=== PATIENT | male | born 1985 | race Caucasian/White ===

== ENCOUNTER 2017-12-16 17:19 | Inpatient (IN) | payer MEDICAID, OTHER ==
[2017-12-16 17:30] VITALS: BMI 25.9
[2017-12-16] MEDS ORDERED: Sodium Chloride 0.9% 500 ML IV ONE (17:30)
[2017-12-16 17:55] LABS: MEAN CORPUSCULAR HGB CONC 28.6 g/dL (33.0-37.0); MEAN PLATELET VOLUME 10.8 fL (7.2-11.7); RBC 0.79 Mil/uL (4.40-5.90); RED CELL DISTRIBUTION WIDTH 22.6 % (11.5-14.5); WHITE BLOOD COUNT 3.6 K/uL (4.8-10.8)
[2017-12-16 18:03] LABS: BARBITURATES, UR NEGATIVE (NEGATIVE); BENZODIAZEPINES, UR NEGATIVE (NEGATIVE); OPIATES, UR NEGATIVE (NEGATIVE); PHENCYCLIDINE, UR NEGATIVE (NEGATIVE)
[2017-12-16 18:07] LABS: ACETAMINOPHEN < 10.0 ug/mL (10.0-30.0); SALICYLATE < 1.0 mg/dL 1
[2017-12-16 18:11] LABS: ALB/GLOB RATIO 0.6 (1.0-2.1); ALBUMIN 2.7 g/dL (3.5-5.0); ALT/SGPT 23 U/L (21-72); AST/SGOT 43 U/L (17-59); BLOOD UREA NITROGEN 54 mg/dL (9-20); CALCIUM 8.3 mg/dl (8.6-10.4); GFR AFRICAN-AMERICAN 30; GFR NON-AFRICAN AMERICAN 25
[2017-12-16 18:13] LABS: HEMOGLOBIN 1.8 g/dL (12.0-18.0); MEAN CELL VOLUME 80.3 fL (80.0-94.0); PLATELET COUNT 96 K/uL (130-400)
[2017-12-16] MEDS ORDERED: Calcium Gluconate 4.65 MEQ in Dextrose 5% In Water 100 ML IV ONE (18:15)
[2017-12-16] MEDS ORDERED: (Novolin R) Insulin Human Regular 100 units/ml vial IV STA (18:15)
[2017-12-16] MEDS ORDERED: Dextrose 50% SYRINGE Inj (50 ml) IV STA (18:15)
[2017-12-16 18:22] LABS: SQUAMOUS EPITHIAL 3 /hpf (0-5); URINE BILIRUBIN NEGATIVE (NEGATIVE); URINE BLOOD NEGATIVE (NEGATIVE); URINE CLARITY Hazy (Clear); URINE COLOR Yellow (YELLOW); URINE GLUCOSE (UA) NORMAL (Normal); URINE LEUKOCYTE ESTERASE NEG Leu/uL (Negative); URINE NITRATE NEGATIVE (NEGATIVE); URINE PROTEIN 1+ mg/dL (NEGATIVE); URINE UROBILINOGEN NORMAL mg/dL (0.2-1.0)
--- NOTE | 2017-12-16 18:25 | CT ---
EXAM: CT Head Without Intravenous Contrast CLINICAL HISTORY: 32 years old, male; Signs and symptoms; Altered mental status/memory loss; Confusion or disorientation; Additional info: Change ms, liver dz TECHNIQUE: Axial computed tomography images of the head/brain without intravenous contrast. All CT scans at this facility use one or more dose reduction techniques, viz.: automated exposure control; ma/kV adjustment per patient size (including targeted exams where dose is matched to indication; i.e. head); or iterative reconstruction technique. Coronal and sagittal reformatted images were created and reviewed. COMPARISON: CT - HEAD W/O CONTRAST 2016-04-09 12:33 FINDINGS: Brain: Minimal atrophy. No intracranial hemorrhage. No mass. No definite edema. Ventricles: No hydrocephalus. Bones/joints: No acute fracture. Soft tissues: Unremarkable. Sinuses: Scattered mild mucosal thickening. Mastoid air cells: No mastoid effusion. Orbits: Unremarkable as visualized. Tubes, lines and devices: Nasal tube. IMPRESSION: 1. No definite acute intracranial abnormality. 2. Incidental/non-acute findings are described above.
[2017-12-16] MEDS ORDERED: (Novolin R) Insulin Human Regular 100 units/ml vial ONE (18:29)
[2017-12-16] MEDS ORDERED: Dextrose 50% VIAL Inj (50 ml) IV ONE ×2 (18:29→18:34)
[2017-12-16] MEDS ORDERED: Calcium Gluconate 4.65 mEq/10 ml Inj ONE (18:30)
--- NOTE | 2017-12-16 18:41 | C.PDOC ---
History Of Present Illness 32 y/o male brought to ED by ambulance after he was discovered by his brother for altered mental status. Pt has hx of alcohol abuse since 1998. Pt has previously been hospitalized and admitted in ICU since 2015 in [facility] and [facility] in [place]. Pt has been sober for the last 6 months and was under his 's supervision, however, pt's is currently out of town. Pt states he has been drinking alcohol for the past week. Unknown complaints with lactulose. Denies any physical complaints. Time Seen by Provider: 12/16/17 17:29 Chief Complaint (Nursing): Altered Mental Status History Per: Patient History/Exam Limitations: None Onset/Duration Of Symptoms: Hrs Current Symptoms Are (Timing): Still Present Usual Baseline: Alert Oriented. denies: Non-responsive Exacerbating Factor(s): Other (Alcohol ) Speech Is: Normal Recent travel outside of the [place]: No Past Medical History Reviewed: Historical Data, Nursing Documentation, Vital Signs Vital Signs: Last Vital Signs Temp 97.5 F L 12/16/17 22:00 Pulse 67 12/16/17 22:02 Resp 14 12/16/17 22:02 BP 97/29 L 12/16/17 22:02 Pulse Ox 100 12/16/17 22:02 - Medical History PMH: Anemia, Gastritis Other PMH: hepatic cirrhosis, state III esophageal varicies - [facility] Procedures CONTROL BLEEDING IN GASTROINTESTINAL TRACT, ENDO (09/07/16) INSPECTION OF UPPER INTESTINAL TRACT, ENDO (04/09/16) RESTRICTION OF STOMACH WITH EXTRALUM DEV, PERC ENDO APPROACH (07/20/16) TRANSFUSE NONAUT FROZEN PLASMA IN PERIPH VEIN, PERC (09/07/16) TRANSFUSE NONAUT FROZEN RED CELLS IN PERIPH VEIN, PERC (04/09/16) TRANSFUSE NONAUT RED BLOOD CELLS IN PERIPH ART, PERC (07/20/16) TRANSFUSE NONAUT RED BLOOD CELLS IN PERIPH VEIN, PERC (09/07/16) Family History: States: Unknown Family Hx - Social History Hx Tobacco Use: No Hx Alcohol Use: Yes (hx alcoholism) Hx Substance Use: No - Immunization History Hx Tetanus Toxoid Vaccination: No Hx Influenza Vaccination: No Hx Pneumococcal Vaccination: No Review Of Systems Constitutional: Negative for: Fever Cardiovascular: Negative for: Chest Pain Respiratory: Negative for: Shortness of Breath Gastrointestinal: Negative for: Nausea, Vomiting Skin: Negative for: Rash Neurological: Negative for: Weakness, Numbness Physical Exam - Physical Exam Appears: Well, Non-toxic, No Acute Distress Skin: Pale Head: Atraumatic, Normacephalic Eye(s): bilateral: Other (mild icterus) Oral Mucosa: Moist Throat: Other (blood tinged and stain in mouth) Chest: Symmetrical, No Tenderness Cardiovascular: Rhythm Regular, JVD Respiratory: Normal Breath Sounds, No Rales, No Rhonchi, No Wheezing Gastrointestinal/Abdominal: Soft, Other (mild ascites ) Extremity: No Tenderness, Pedal Edema (4x4) Neurological/Psych: Oriented x3, Normal Speech, Other (GCS approximately 8) ED Course And Treatment - Laboratory Results Result Diagrams: 12/16/17 17:42 12/16/17 17:42 Lab Interpretation: Abnormal (severe anemia, hyperkalemia, tox neg, etoh neg, ASA/tylenol neg.) ECG: Interpreted By Id ECG Rhythm: Sinus Rhythm ECG Interpretation: Normal Rate From EC (mild peaked T^'s anterior leads) O2 Sat by Pulse Oximetry: 100 (RA) Pulse Ox Interpretation: Normal - Radiology CXR: Interpreted by Me CXR Interpretation: Yes: No Acute Disease, Other (++ cardiomegaly, no pna/pnx/ free air under diaphragm) - CT Scan/US CT - Head Other Rad Studies (CT/US): Read By Radiologist, Radiology Report Reviewed CT/US Interpretation: IMPRESSION: 1. No definite acute intracranial abnormality. 2. Incidental/non-acute findings are described above. Progress Note: initial eval 17:20. 1814: d/w ICU, jesenia Wilson to ICU, will eval in ER. 1839: d/w Hospitalist- Dr. Worthington- jesenia to ICU. 1844: d/w GI Fellow, covering Dr. Pelaez, Dr. Latoya Mendoza- recommends agressive recussitation, octreotide, protonix, intubation. Advised against OG tube now. Will consult: . 1899: d/w Dr Gregg- case and treatment reviewed- will intubate in ICU PRN, blood and FFP ordered and pending. 2 large bore 18 ga to b /l external jugular veins placed by this MD with excellent return. Defer central line for bleeding diathysis. Kayexylate and Lactulose per OG tube when placed in ICU. multiple failed attempts @ ABG, persistent bleeding at sites- further efforts abandoned for risk/benefit- do no harm. 2000: pt left ED for ICU Reevaluation Time: 19:13 Reassessment Condition: Improved Critical Care Time - Critical Care Note Total Time (in mins): 90 Documented critical care: time excludes all time spent performing seperately billable procedures. Medical Decision Making Medical Decision Making: Ordered BBK, BG, CT head, EKG, blood work, CXR, and urinalysis. Crisis notified. probable end stage liver dz due to hepatis cirrhosis, h/o stage III esophageal varicies- probable source vs alcoholic gastritis, now with severe anemia hgb 1.8 probable chronic dwindle down otherwise improbably acute. hepatic encephalopathy- ammonia Disposition Doctor Will See Patient In The: Hospital Counseled Patient/Family Regarding: Studies Performed, Diagnosis - Disposition Disposition: HOSPITALIZED Disposition Time: 19:18 Condition: CRITICAL - Clinical Impression Clinical Impression: GI bleed, Esophageal varices, Hypotension, Anemia, Hepatic encephalopathy, Coagulopathy, Altered mental status - Scribe Statement The provider has reviewed the documentation as recorded by the Scribchristophe Owens All medical record entries made by the Scribchristophe were at my direction and personally dictated by me. I have reviewed the chart and agree that the record accurately reflects my personal performance of the history, physical exam, medical decision making, and the department course for this patient. I have also personally directed, reviewed, and agree with the discharge instructions and disposition.
[2017-12-16] MEDS ORDERED: Phytonadione 10 mg/ml Inj (Adult) IV STA (18:52)
[2017-12-16 18:58] LABS: ANISOCYTOSIS MODERATE; EOSINOPHIL 4 % (0-4); LYMPHOCYTE 24 % (20-40); MONOCYTE 11 % (0-10); NEUTROPHIL 61 % (50-75); NUCLEATED RED BLOOD CELL 6 % (0-0); PLATELET ESTIMATE DECREASED (NORMAL); TOTAL CELLS COUNTED 100
[2017-12-16 18:59] LABS: HYPOCHROMIC MARKED; MICROCYTOSIS SLIGHT; OVALOCYTES SLIGHT; POLYCHROMIC SLIGHT; SCHISTOCYTES SLIGHT; TARGET CELLS SLIGHT
[2017-12-16] MEDS ORDERED: Octreotide 1,250 MCG in Dextrose 5% In Water 250 ML SC STA (18:59)
[2017-12-16 19:00] LABS: LARGE PLATELETS PRESENT
[2017-12-16] MEDS ORDERED: Pantoprazole 80 MG in Sodium Chloride 0.9% 100 ML IVPB SCH (19:00)
[2017-12-16] MEDS ORDERED: Pantoprazole 80 MG in Sodium Chloride 0.9% 100 ML IVP SCH (19:00)
[2017-12-16 19:05] LABS: POIKILOCYTOSIS MODERATE
[2017-12-16 19:12] LABS: INR 2.1; PROTHROMBIN TIME 23.7 SECONDS (9.7-12.2)
[2017-12-16] MEDS: Octreotide 1,250 MCG in Dextrose 5% In Water 250 ML SC SCH (19:30)
[2017-12-16] MEDS ORDERED: Phytonadione 10 mg/ml Inj (Adult) ONE (19:33)
[2017-12-16] MEDS: Pantoprazole 80 MG in Sodium Chloride 0.9% 100 ML IVPB SCH (19:39)
[2017-12-16] MEDS ORDERED: Sod Polystyrene Sulf 15 gm/60 ml Susp PR ONE ×2 (20:57→23:45)
[2017-12-16 21:18] LABS: ARTERIAL BLOOD GAS HCO3 17.5 mmol/L (21-28); ARTERIAL BLOOD GAS HEMOGLOBIN < 3.0 g/dL (11.7-17.4); ARTERIAL BLOOD GAS PCO2 21 mm/Hg (35-45); ARTERIAL BLOOD GAS PO2 173 mm/Hg (80-100); ARTERIAL BLOOD GAS TCO2 13.6 mmol/L (22-28)
--- NOTE | 2017-12-16 22:06 | CP.PCM.HP ---
<Ronda Henderson - Last Filed: 12/17/17 05:59> History of Present Illness - History of Present Illness History of Present Illness: Asael Atkinson (brother) # [phone] HPI: Per brother Asael patient was brought from home to the ED because he was not responsive. He states when his father found him this morning he called him and when he arrived his brother just kept rolling his eyes in which he then called 911. He states his brother continuously lies and tells the family he is not drinking and is applying for insurance. He continued to make excuses stating he could not get an appointment with a physician. The brother states the patient told him he had went to the ED recently but the brother kept calling and his brother was never in an ED. Patient was examined at bedside. Patient opens his eyes when you call his name and sternal rub. Patient is non- verbal so ROS could not be obtained. Patient is not verbal history is per brother Asael Atkinson # [phone] PMD: None Past Medical History: Denies Past Surgical History: Denies Family History: Mother when patient was 12 years old due to a stroke ; Father is still living Medications: None Allergies: NKDA Social History: per brother patient has been known to sneak alcohol but no one in his family knows how much beer or other liquor he drinks. He has had a job for about 3 years now and spends most his days at home. He currently is living with his father. He is but his is currently in [place]. Present on Admission - Present on Admission Any Indicators Present on Admission: No Review of Systems - Review of Systems Systems not reviewed;Unavailable: Altered Mental Status Past Patient History - Past Medical History & Family History Past Medical History?: Yes - Past Social History Smoking Status: Never Smoked - CARDIAC Hx Atrial Fibrillation: No - PULMONARY Hx Respiratory Disorders: No - NEUROLOGICAL Hx Neurological Disorder: No - HEENT Hx HEENT Problems: No - RENAL Hx Chronic Kidney Disease: No - ENDOCRINE/METABOLIC Hx Endocrine Disorders: No - HEMATOLOGICAL/ONCOLOGICAL Hx Anemia: Yes - INTEGUMENTARY Hx Dermatological Problems: No - MUSCULOSKELETAL/RHEUMATOLOGICAL Hx Falls: No - GASTROINTESTINAL Hx Gastritis: Yes - GENITOURINARY/GYNECOLOGICAL Hx Genitourinary Disorders: No - PSYCHIATRIC Hx Substance Use: No - SURGICAL HISTORY Hx Surgeries: No - ANESTHESIA Hx Anesthesia: Yes Hx Anesthesia Reactions: No Meds Allergies/Adverse Reactions: Allergies Allergy/AdvReac Type Severity Reaction Status Date / Time No Known Allergies Allergy Verified 09/07/16 10:21 Physical Exam - Constitutional Appears: Toxic - Head Exam Head Exam: NORMAL INSPECTION - Eye Exam Eye Exam: EOMI, Normal appearance Pupil Exam: NORMAL ACCOMODATION - ENT Exam ENT Exam: Mucous Membranes Dry - Respiratory Exam Respiratory Exam: NORMAL BREATHING PATTERN - Cardiovascular Exam Cardiovascular Exam: REGULAR RHYTHM, +S1, +S2 - GI/Abdominal Exam GI & Abdominal Exam: Distended, Normal Bowel Sounds, Soft - Extremities Exam Extremities exam: Positive for: pedal edema (+2 bilateral lower extremity pedal edema ) - Skin Skin Exam: Normal Color, Warm Results - Vital Signs Recent Vital Signs: Last Vital Signs Temp 98 F 12/16/17 21:33 Pulse 82 12/16/17 19:35 Resp 14 12/16/17 20:27 BP 86/18 L 12/16/17 19:35 Pulse Ox 100 12/16/17 21:31 - Labs Result Diagrams: 12/16/17 23:19 12/16/17 23:19 Labs: Laboratory Results - last 24 hr 12/16/17 12/16/17 12/16/17 17:42 17:42 17:42 WBC 3.6 L RBC 0.79 L Hgb 1.8 L* D Hct 6.3 L MCV 80.3 D MCH 23.0 L MCHC 28.6 L RDW 22.6 H Plt Count 96 L D MPV 10.8 Neutrophils % (Manual) 61 Lymphocytes % (Manual) 24 Monocytes % (Manual) 11 H Eosinophils % (Manual) 4 Nucleated RBC % 6 H Platelet Estimate Decreased L Large Platelets Present Polychromasia Slight Hypochromasia (manual) Marked Poikilocytosis (manual Moderate Anisocytosis (manual) Moderate Microcytosis (manual) Slight Macrocytosis (manual) Slight Target Cells Slight Ovalocytes Slight Schistocytes Slight PT INR APTT Puncture Site pCO2 pO2 HCO3 ABG pH ABG Total CO2 ABG Base Excess ABG Hemoglobin Servando Test A-a O2 Difference Respiratory Index Liter Flow FiO2 Sodium 127 L Potassium 6.7 H* D Chloride 102 Carbon Dioxide 14 L Anion Gap 18 BUN 54 H Creatinine 2.9 H Est GFR ( Amer) 30 Est GFR (Non-Af Amer) 25 Random Glucose 81 Calcium 8.3 L Total Bilirubin 3.2 H AST 43 ALT 23 Alkaline Phosphatase 43 Ammonia Total Protein 7.2 Albumin 2.7 L Globulin 4.5 H Albumin/Globulin Ratio 0.6 L Urine Color Yellow Urine Clarity Hazy Urine pH 5.0 Ur Specific [place] 1.012 Urine Protein 1+ H Urine Glucose (UA) Normal Urine Ketones Negative Urine Blood Negative Urine Nitrate Negative Urine Bilirubin Negative Urine Urobilinogen Normal Ur Leukocyte Esterase Neg Urine WBC (Auto) 6 H Urine RBC (Auto) 1 Ur Squamous Epith Cells 3 Salicylates Urine Opiates Screen Urine Methadone Screen Acetaminophen Ur Barbiturates Screen Ur Phencyclidine Scrn Ur Amphetamines Screen U Benzodiazepines Scrn U Oth Cocaine Metabols U Cannabinoids Screen Alcohol, Quantitative < 10 Blood Type Antibody Screen 12/16/17 12/16/17 12/16/17 17:42 17:42 17:42 WBC RBC Hgb Hct MCV MCH MCHC RDW Plt Count MPV Neutrophils % (Manual) Lymphocytes % (Manual) Monocytes % (Manual) Eosinophils % (Manual) Nucleated RBC % Platelet Estimate Large Platelets Polychromasia Hypochromasia (manual) Poikilocytosis (manual Anisocytosis (manual) Microcytosis (manual) Macrocytosis (manual) Target Cells Ovalocytes Schistocytes PT INR APTT Puncture Site pCO2 pO2 HCO3 ABG pH ABG Total CO2 ABG Base Excess ABG Hemoglobin Servando Test A-a O2 Difference Respiratory Index Liter Flow FiO2 Sodium Potassium Chloride Carbon Dioxide Anion Gap BUN Creatinine Est GFR ( Amer) Est GFR (Non-Af Amer) Random Glucose Calcium Total Bilirubin AST ALT Alkaline Phosphatase Ammonia 122 H D Total Protein Albumin Globulin Albumin/Globulin Ratio Urine Color Urine Clarity Urine pH Ur Specific [place] Urine Protein Urine Glucose (UA) Urine Ketones Urine Blood Urine Nitrate Urine Bilirubin Urine Urobilinogen Ur Leukocyte Esterase Urine WBC (Auto) Urine RBC (Auto) Ur Squamous Epith Cells Salicylates < 1.0 Urine Opiates Screen Negative Urine Methadone Screen Negative Acetaminophen < 10.0 L Ur Barbiturates Screen Negative Ur Phencyclidine Scrn Negative Ur Amphetamines Screen Negative U Benzodiazepines Scrn Negative U Oth Cocaine Metabols Negative U Cannabinoids Screen Negative Alcohol, Quantitative Blood Type Antibody Screen 12/16/17 12/16/17 12/16/17 18:11 18:59 20:54 WBC RBC Hgb Hct MCV MCH MCHC RDW Plt Count MPV Neutrophils % (Manual) Lymphocytes % (Manual) Monocytes % (Manual) Eosinophils % (Manual) Nucleated RBC % Platelet Estimate Large Platelets Polychromasia Hypochromasia (manual) Poikilocytosis (manual Anisocytosis (manual) Microcytosis (manual) Macrocytosis (manual) Target Cells Ovalocytes Schistocytes PT 23.7 H INR 2.1 APTT 30 Puncture Site Rba pCO2 21 L pO2 173 H HCO3 17.5 L ABG pH 7.40 ABG Total CO2 13.6 L ABG Base Excess -9.6 L ABG Hemoglobin < 3.0 L Servando Test Na A-a O2 Difference 15.0 Respiratory Index 0.1 Liter Flow 3.0 FiO2 30.0 Sodium Potassium Chloride Carbon Dioxide Anion Gap BUN Creatinine Est GFR ( Amer) Est GFR (Non-Af Amer) Random Glucose Calcium Total Bilirubin AST ALT Alkaline Phosphatase Ammonia Total Protein Albumin Globulin Albumin/Globulin Ratio Urine Color Urine Clarity Urine pH Ur Specific [place] Urine Protein Urine Glucose (UA) Urine Ketones Urine Blood Urine Nitrate Urine Bilirubin Urine Urobilinogen Ur Leukocyte Esterase Urine WBC (Auto) Urine RBC (Auto) Ur Squamous Epith Cells Salicylates Urine Opiates Screen Urine Methadone Screen Acetaminophen Ur Barbiturates Screen Ur Phencyclidine Scrn Ur Amphetamines Screen U Benzodiazepines Scrn U Oth Cocaine Metabols U Cannabinoids Screen Alcohol, Quantitative Blood Type A POSITIVE Antibody Screen Negative Assessment & Plan - Assessment and Plan (Free Text) Assessment: 1.) Change in Mental Status - possibly secondary to acute anemia/encephalopathy - patient admitted to ICU - Head CT: no definite acute intracranial abnormality. Incidental/non-acute findings. - f/u chest xray 2.) Acute Anemia - H/H on admission: 1.8/6.3 - type and screen - 4 units of PRBC - f/u am labs 3.) Thrombocytopenia - Platelets on admission: 96 - 2 units of FFP - f/u am labs 4.) Alcohol abuse - GI consult: Dr. Pelaez - Dextrose/Octreotid 1250 mcg - NS/Pantoprazole 80mg - Lasix 20mg iv q12h <Shawn Alcala - Last Filed: 12/17/17 19:14> Results - Vital Signs Recent Vital Signs: Last Vital Signs Temp 97.6 F 12/17/17 16:00 Pulse 61 12/17/17 18:30 Resp 13 12/17/17 18:30 BP 100/45 L 12/17/17 18:00 Pulse Ox 100 12/17/17 18:00 - Labs Result Diagrams: 12/17/17 16:44 12/17/17 07:18 Labs: Laboratory Results - last 24 hr 12/16/17 12/16/17 12/16/17 18:11 18:59 20:54 WBC RBC Hgb Hct MCV MCH MCHC RDW Plt Count MPV Neut % (Auto) Lymph % (Auto) Bent % (Auto) Eos % (Auto) Baso % (Auto) Neut # (Auto) Lymph # (Auto) Bent # (Auto) Eos # (Auto) Baso # (Auto) Neutrophils % (Manual) Lymphocytes % (Manual) Monocytes % (Manual) Eosinophils % (Manual) Nucleated RBC % Toxic Granulation Platelet Estimate Large Platelets Polychromasia Hypochromasia (manual) Poikilocytosis (manual Anisocytosis (manual) Microcytosis (manual) Macrocytosis (manual) Spherocytes Target Cells Tear Drop Cells Ovalocytes [place] Cells Schistocytes PT 23.7 H INR 2.1 APTT 30 Puncture Site Rba pCO2 21 L pO2 173 H HCO3 17.5 L ABG pH 7.40 ABG Total CO2 13.6 L ABG Base Excess -9.6 L ABG Hemoglobin < 3.0 L Servando Test Na A-a O2 Difference 15.0 Respiratory Index 0.1 Liter Flow 3.0 FiO2 30.0 Sodium Potassium Chloride Carbon Dioxide Anion Gap BUN Creatinine Est GFR ( Amer) Est GFR (Non-Af Amer) Random Glucose Calcium Phosphorus Magnesium Total Bilirubin AST ALT Alkaline Phosphatase Total Protein Albumin Globulin Albumin/Globulin Ratio Ur Random Creatinine U Random Total Protein Urine Microalbumin Blood Type A POSITIVE Antibody Screen Negative 12/16/17 12/16/17 12/17/17 23:19 23:19 07:18 WBC 3.8 L 4.5 L RBC 1.36 L 1.58 L Hgb 3.6 L* 4.4 L* Hct 11.4 L 13.2 L MCV 83.7 D 83.6 MCH 26.8 L 27.6 MCHC 32.0 L 33.1 RDW 18.3 H 16.0 H Plt Count 26 L* D 49 L D MPV 11.1 10.4 Neut % (Auto) 77.5 H Lymph % (Auto) 6.2 L Bent % (Auto) 12.0 H Eos % (Auto) 3.5 Baso % (Auto) 0.8 Neut # (Auto) 3.5 Lymph # (Auto) 0.3 L Bent # (Auto) 0.5 Eos # (Auto) 0.2 Baso # (Auto) 0.0 Neutrophils % (Manual) 79 H Lymphocytes % (Manual) 7 L Monocytes % (Manual) 12 H Eosinophils % (Manual) 2 Nucleated RBC % 1 H Toxic Granulation Present Platelet Estimate Markedly decreased L Large Platelets Present Polychromasia Slight Hypochromasia (manual) Slight Poikilocytosis (manual Slight Anisocytosis (manual) Slight Microcytosis (manual) Slight Macrocytosis (manual) Slight Spherocytes Slight Target Cells Slight Tear Drop Cells Slight Ovalocytes Slight [place] Cells Slight Schistocytes Slight PT INR APTT Puncture Site pCO2 pO2 HCO3 ABG pH ABG Total CO2 ABG Base Excess ABG Hemoglobin Servando Test A-a O2 Difference Respiratory Index Liter Flow FiO2 Sodium 127 L Potassium 6.0 H Chloride 106 Carbon Dioxide 11 L* D Anion Gap 15 BUN 52 H Creatinine 2.8 H Est GFR ( Amer) 32 Est GFR (Non-Af Amer) 26 Random Glucose 80 Calcium 8.1 L Phosphorus Magnesium Total Bilirubin AST ALT Alkaline Phosphatase Total Protein Albumin Globulin Albumin/Globulin Ratio Ur Random Creatinine U Random Total Protein Urine Microalbumin Blood Type Antibody Screen 12/17/17 12/17/17 12/17/17 07:18 16:44 16:44 WBC RBC Hgb Hct MCV MCH MCHC RDW Plt Count MPV Neut % (Auto) Lymph % (Auto) Bent % (Auto) Eos % (Auto) Baso % (Auto) Neut # (Auto) Lymph # (Auto) Bent # (Auto) Eos # (Auto) Baso # (Auto) Neutrophils % (Manual) Lymphocytes % (Manual) Monocytes % (Manual) Eosinophils % (Manual) Nucleated RBC % Toxic Granulation Platelet Estimate Large Platelets Polychromasia Hypochromasia (manual) Poikilocytosis (manual Anisocytosis (manual) Microcytosis (manual) Macrocytosis (manual) Spherocytes Target Cells Tear Drop Cells Ovalocytes [place] Cells Schistocytes PT INR APTT Puncture Site pCO2 pO2 HCO3 ABG pH ABG Total CO2 ABG Base Excess ABG Hemoglobin Servando Test A-a O2 Difference Respiratory Index Liter Flow FiO2 Sodium 134 Potassium 5.0 Chloride 99 Carbon Dioxide 14 L Anion Gap 26 H BUN 51 H Creatinine 3.0 H Est GFR ( Amer) 29 Est GFR (Non-Af Amer) 24 Random Glucose 133 H Calcium 7.2 L Phosphorus 6.4 H Magnesium 2.0 Total Bilirubin 7.0 H AST 35 ALT 25 Alkaline Phosphatase 40 Total Protein 6.9 Albumin 2.8 L Globulin 4.1 H Albumin/Globulin Ratio 0.7 L Ur Random Creatinine 103.1 U Random Total Protein Urine Microalbumin 58.9 H Blood Type Antibody Screen 12/17/17 12/17/17 16:44 16:56 WBC 4.3 L RBC 1.93 L Hgb 5.4 L* Hct 16.1 L MCV 83.3 MCH 28.0 MCHC 33.6 RDW 16.3 H Plt Count 53 L MPV 10.4 Neut % (Auto) Lymph % (Auto) Bent % (Auto) Eos % (Auto) Baso % (Auto) Neut # (Auto) Lymph # (Auto) Bent # (Auto) Eos # (Auto) Baso # (Auto) Neutrophils % (Manual) Lymphocytes % (Manual) Monocytes % (Manual) Eosinophils % (Manual) Nucleated RBC % Toxic Granulation Platelet Estimate Large Platelets Polychromasia Hypochromasia (manual) Poikilocytosis (manual Anisocytosis (manual) Microcytosis (manual) Macrocytosis (manual) Spherocytes Target Cells Tear Drop Cells Ovalocytes [place] Cells Schistocytes PT INR APTT Puncture Site pCO2 pO2 HCO3 ABG pH ABG Total CO2 ABG Base Excess ABG Hemoglobin Servando Test A-a O2 Difference Respiratory Index Liter Flow FiO2 Sodium Potassium Chloride Carbon Dioxide Anion Gap BUN Creatinine Est GFR ( Amer) Est GFR (Non-Af Amer) Random Glucose Calcium Phosphorus Magnesium Total Bilirubin AST ALT Alkaline Phosphatase Total Protein Albumin Globulin Albumin/Globulin Ratio Ur Random Creatinine U Random Total Protein 23.0 H Urine Microalbumin Blood Type Antibody Screen Assessment & Plan - Date & Time Date: 12/17/17 (I have seen and examined the patient. I agree with the findings and plan of care as documented by Dr. Henderson. Patient with severe anemia secondary due to alcohol abuse and esophageal varices. Consult to GI. Octreotide, PPI, transfuse multiple units of PRBCs and FFP. Admit to ICU. Also with change in mental status. May be secondary to hepatic encephalopathy. Monitor with neurochecks. Monitor for acute changes.) Time: 19:11 Attending/Attestation - Attestation I have personally seen and examined this patient.: Yes I have fully participated in the care of the patient.: Yes I have reviewed all pertinent clinical information: Yes
[2017-12-16 23:41] LABS: MEAN CELL VOLUME 83.7 fL (80.0-94.0); MEAN CORPUSCULAR HEMOGLOBIN 26.8 pg (27.0-31.0); MEAN PLATELET VOLUME 11.1 fL (7.2-11.7); RBC 1.36 Mil/uL (4.40-5.90); RED CELL DISTRIBUTION WIDTH 18.3 % (11.5-14.5); WHITE BLOOD COUNT 3.8 K/uL (4.8-10.8)
[2017-12-16 23:44] LABS: HEMOGLOBIN 3.6 g/dL (12.0-18.0)
[2017-12-16 23:49] LABS: CALCIUM 8.1 mg/dl (8.6-10.4)
[2017-12-17] MEDS: Pantoprazole 80 MG in Sodium Chloride 0.9% 100 ML IVPB SCH ×2 (05:07→15:18)
[2017-12-17 07:32] LABS: BASO % 0.8 % (0.0-2.0); EOS # 0.2 K/uL (0.0-0.7); EOS % 3.5 % (0.0-4.0); LYMPH # 0.3 K/uL (1.0-4.3); LYMPH % 6.2 % (20.0-40.0); MEAN CELL VOLUME 83.6 fL (80.0-94.0); MEAN CORPUSCULAR HEMOGLOBIN 27.6 pg (27.0-31.0); MEAN CORPUSCULAR HGB CONC 33.1 g/dL (33.0-37.0); MEAN PLATELET VOLUME 10.4 fL (7.2-11.7); MONO # 0.5 K/uL (0.0-0.8); NEUT # 3.5 K/uL (1.8-7.0); NEUT % 77.5 % (50.0-75.0); NRBC % 4.3 % (0.0-2.0); RBC 1.58 Mil/uL (4.40-5.90); WHITE BLOOD COUNT 4.5 K/uL (4.8-10.8)
[2017-12-17 07:37] LABS: HEMOGLOBIN 4.4 g/dL (12.0-18.0); PLATELET COUNT 49 K/uL (130-400)
[2017-12-17 07:49] LABS: ALB/GLOB RATIO 0.7 (1.0-2.1); ALBUMIN 2.8 g/dL (3.5-5.0); CALCIUM 7.2 mg/dl (8.6-10.4)
--- NOTE | 2017-12-17 08:16 | CP.PCM.CON ---
<Mirtha Mendoza - Last Filed: 12/17/17 13:12> History of Present Illness - History of Present Illness History of Present Illness: PGY4 GI Fellow Consult Note Nakul Atkinson is a 31yo male with PMHx significant for decompensated alcoholic cirrhosis with grade 3 esophageal varices s/p banding in July 2016 and August 2016 who presented to the ED with altered mental status. Pt was found obtunded by his brother who was visiting. He saw not able to arouse the pt and immediately called 911. On arrival, his HGB was noted to be 1.8, down from 9.3 back in July of 2016. He was admitted to the ICU, given unit of PRBCs. Most information was obtained from the brother overnight, who was bedside. As per the brother, pt was very secretive of his currently medical condition from his family. He has not follow-up with any medical practicinor in the past 1 year after discharge from [facility]. He continues to drink, but family is unaware of the amount. His brother does not know if he is taking any meds. He is unaware if the pt has been complaining of melena, hematemesis or coffee-ground emesis. In the ER, there were no reports of overt GI bleed and no significant events overnight. He received 4 unit of PRBC and 1 unit FFP overnight, hgb was ~ 4.4 in the AM. He also received lactulose and k-exylate rectally. He had 2 BM overnight. Pt was more alert, but still confused in the AM. He was oriented to person, place, but not time. He notes that he was had seen a GI physcian as an outpt upon his discharge from [facility] in 2015. He was told to continue 4 medication, which he does not recall the name of, but he did not follow-up after 1 visit. He notes that he also came to the [facility] at least twice. He notes that he has not been on any medication or seen a health care provider in >1 year. he was vague and dismissive about his alcohol use. He denies any BRBPR, melena, hematemsis, or coffee-ground emesis PMHx: Decompensated alcoholic cirrhosis, esophageal varices, alcohol dependence/ abuse in remission sober since 10/27 per pt PSHx: Denies FHx: Father - prostate cancer Social: Former alcoholic, sober since 10/2015; denies tobacco or illicit drug use Endo: Prior EGd in March and July of 2016 with banding performed in July following ruptured varices (6 bands), EGD 08/2016 3 bands grade 3 varices with GOV1 ROS: 12 point ROS conducted neg other than above. Past Patient History - Past Medical History & Family History Past Medical History?: Yes - Past Social History Smoking Status: Never Smoked - CARDIAC Hx Atrial Fibrillation: No - PULMONARY Hx Respiratory Disorders: No - NEUROLOGICAL Hx Neurological Disorder: No - HEENT Hx HEENT Problems: No - RENAL Hx Chronic Kidney Disease: No - ENDOCRINE/METABOLIC Hx Endocrine Disorders: No - HEMATOLOGICAL/ONCOLOGICAL Hx Anemia: Yes - INTEGUMENTARY Hx Dermatological Problems: No - MUSCULOSKELETAL/RHEUMATOLOGICAL Hx Falls: No - GASTROINTESTINAL Hx Gastritis: Yes - GENITOURINARY/GYNECOLOGICAL Hx Genitourinary Disorders: No - PSYCHIATRIC Hx Substance Use: No - SURGICAL HISTORY Hx Surgeries: No - ANESTHESIA Hx Anesthesia: Yes Hx Anesthesia Reactions: No Meds Allergies/Adverse Reactions: Allergies Allergy/AdvReac Type Severity Reaction Status Date / Time No Known Allergies Allergy Verified 09/07/16 10:21 - Medications Medications: Current Medications Furosemide (Lasix) 20 mg IVP Q12 RUPINDER Last Admin: 12/16/17 23:43 Dose: 20 mg Octreotide Acetate 1,250 mcg/ (Dextrose) 252.5 mls @ 5.05 mls/hr SC .Q24H RUPINDER PRN Reason: 25 MCG/HR Last Admin: 12/16/17 19:30 Dose: 5.05 mls/hr Pantoprazole Sodium 80 mg/ (Sodium Chloride) 100 mls @ 10 mls/hr IVPB .Q10H RUPINDER PRN Reason: 8 MG/HR Last Admin: 12/17/17 05:07 Dose: 10 mls/hr Physical Exam - Constitutional Appears: Well, No Acute Distress - Head Exam Head Exam: ATRAUMATIC, NORMOCEPHALIC - Eye Exam Eye Exam: Scleral icterus - ENT Exam ENT Exam: Mucous Membranes Moist, Normal Exam - Neck Exam Neck exam: Positive for: Normal Inspection - Respiratory Exam Respiratory Exam: Clear to Auscultation Bilateral, NORMAL BREATHING PATTERN. absent: Rales, Rhonchi, Wheezes, Respiratory Distress - Cardiovascular Exam Cardiovascular Exam: REGULAR RHYTHM, +S1, +S2 - GI/Abdominal Exam GI & Abdominal Exam: Normal Bowel Sounds, Soft. absent: Distended, Guarding, Rebound, Rigid, Tenderness - Rectal Exam Rectal Exam: NORMAL INSPECTION. absent: Black Stool, Bloody Stool - Extremities Exam Extremities exam: Positive for: pedal edema - Neurological Exam Neurological exam: Alert, Altered - Psychiatric Exam Psychiatric exam: Normal Affect, Normal Mood - Skin Skin Exam: Dry, Intact, Warm Additional comments: slight juandiced Results - Vital Signs Recent Vital Signs: Last Vital Signs Temp 97.6 F 12/17/17 07:00 Pulse 67 12/17/17 07:40 Resp 12 12/17/17 07:40 BP 101/51 L 12/17/17 07:32 Pulse Ox 100 12/17/17 07:40 - Labs Result Diagrams: 12/17/17 07:18 12/17/17 07:18 Labs: Laboratory Results - last 24 hr 12/16/17 12/16/17 12/16/17 17:42 17:42 17:42 WBC 3.6 L RBC 0.79 L Hgb 1.8 L* D Hct 6.3 L MCV 80.3 D MCH 23.0 L MCHC 28.6 L RDW 22.6 H Plt Count 96 L D MPV 10.8 Neut % (Auto) Lymph % (Auto) [place] % (Auto) Eos % (Auto) Baso % (Auto) Neut # (Auto) Lymph # (Auto) [place] # (Auto) Eos # (Auto) Baso # (Auto) Neutrophils % (Manual) 61 Lymphocytes % (Manual) 24 Monocytes % (Manual) 11 H Eosinophils % (Manual) 4 Nucleated RBC % 6 H Platelet Estimate Decreased L Large Platelets Present Polychromasia Slight Hypochromasia (manual) Marked Poikilocytosis (manual Moderate Anisocytosis (manual) Moderate Microcytosis (manual) Slight Macrocytosis (manual) Slight Target Cells Slight Ovalocytes Slight Schistocytes Slight PT INR APTT Puncture Site pCO2 pO2 HCO3 ABG pH ABG Total CO2 ABG Base Excess ABG Hemoglobin Servando Test A-a O2 Difference Respiratory Index Liter Flow FiO2 Sodium 127 L Potassium 6.7 H* D Chloride 102 Carbon Dioxide 14 L Anion Gap 18 BUN 54 H Creatinine 2.9 H Est GFR ( Amer) 30 Est GFR (Non-Af Amer) 25 Random Glucose 81 Calcium 8.3 L Phosphorus Magnesium Total Bilirubin 3.2 H AST 43 ALT 23 Alkaline Phosphatase 43 Ammonia Total Protein 7.2 Albumin 2.7 L Globulin 4.5 H Albumin/Globulin Ratio 0.6 L Urine Color Yellow Urine Clarity Hazy Urine pH 5.0 Ur Specific [place] 1.012 Urine Protein 1+ H Urine Glucose (UA) Normal Urine Ketones Negative Urine Blood Negative Urine Nitrate Negative Urine Bilirubin Negative Urine Urobilinogen Normal Ur Leukocyte Esterase Neg Urine WBC (Auto) 6 H Urine RBC (Auto) 1 Ur Squamous Epith Cells 3 Salicylates Urine Opiates Screen Urine Methadone Screen Acetaminophen Ur Barbiturates Screen Ur Phencyclidine Scrn Ur Amphetamines Screen U Benzodiazepines Scrn U Oth Cocaine Metabols U Cannabinoids Screen Alcohol, Quantitative < 10 Blood Type Antibody Screen 12/16/17 12/16/17 12/16/17 17:42 17:42 17:42 WBC RBC Hgb Hct MCV MCH MCHC RDW Plt Count MPV Neut % (Auto) Lymph % (Auto) [place] % (Auto) Eos % (Auto) Baso % (Auto) Neut # (Auto) Lymph # (Auto) [place] # (Auto) Eos # (Auto) Baso # (Auto) Neutrophils % (Manual) Lymphocytes % (Manual) Monocytes % (Manual) Eosinophils % (Manual) Nucleated RBC % Platelet Estimate Large Platelets Polychromasia Hypochromasia (manual) Poikilocytosis (manual Anisocytosis (manual) Microcytosis (manual) Macrocytosis (manual) Target Cells Ovalocytes Schistocytes PT INR APTT Puncture Site pCO2 pO2 HCO3 ABG pH ABG Total CO2 ABG Base Excess ABG Hemoglobin Servando Test A-a O2 Difference Respiratory Index Liter Flow FiO2 Sodium Potassium Chloride Carbon Dioxide Anion Gap BUN Creatinine Est GFR ( Amer) Est GFR (Non-Af Amer) Random Glucose Calcium Phosphorus Magnesium Total Bilirubin AST ALT Alkaline Phosphatase Ammonia 122 H D Total Protein Albumin Globulin Albumin/Globulin Ratio Urine Color Urine Clarity Urine pH Ur Specific [place] Urine Protein Urine Glucose (UA) Urine Ketones Urine Blood Urine Nitrate Urine Bilirubin Urine Urobilinogen Ur Leukocyte Esterase Urine WBC (Auto) Urine RBC (Auto) Ur Squamous Epith Cells Salicylates < 1.0 Urine Opiates Screen Negative Urine Methadone Screen Negative Acetaminophen < 10.0 L Ur Barbiturates Screen Negative Ur Phencyclidine Scrn Negative Ur Amphetamines Screen Negative U Benzodiazepines Scrn Negative U Oth Cocaine Metabols Negative U Cannabinoids Screen Negative Alcohol, Quantitative Blood Type Antibody Screen 12/16/17 12/16/17 12/16/17 18:11 18:59 20:54 WBC RBC Hgb Hct MCV MCH MCHC RDW Plt Count MPV Neut % (Auto) Lymph % (Auto) [place] % (Auto) Eos % (Auto) Baso % (Auto) Neut # (Auto) Lymph # (Auto) [place] # (Auto) Eos # (Auto) Baso # (Auto) Neutrophils % (Manual) Lymphocytes % (Manual) Monocytes % (Manual) Eosinophils % (Manual) Nucleated RBC % Platelet Estimate Large Platelets Polychromasia Hypochromasia (manual) Poikilocytosis (manual Anisocytosis (manual) Microcytosis (manual) Macrocytosis (manual) Target Cells Ovalocytes Schistocytes PT 23.7 H INR 2.1 APTT 30 Puncture Site Rba pCO2 21 L pO2 173 H HCO3 17.5 L ABG pH 7.40 ABG Total CO2 13.6 L ABG Base Excess -9.6 L ABG Hemoglobin < 3.0 L Servando Test Na A-a O2 Difference 15.0 Respiratory Index 0.1 Liter Flow 3.0 FiO2 30.0 Sodium Potassium Chloride Carbon Dioxide Anion Gap BUN Creatinine Est GFR ( Amer) Est GFR (Non-Af Amer) Random Glucose Calcium Phosphorus Magnesium Total Bilirubin AST ALT Alkaline Phosphatase Ammonia Total Protein Albumin Globulin Albumin/Globulin Ratio Urine Color Urine Clarity Urine pH Ur Specific [place] Urine Protein Urine Glucose (UA) Urine Ketones Urine Blood Urine Nitrate Urine Bilirubin Urine Urobilinogen Ur Leukocyte Esterase Urine WBC (Auto) Urine RBC (Auto) Ur Squamous Epith Cells Salicylates Urine Opiates Screen Urine Methadone Screen Acetaminophen Ur Barbiturates Screen Ur Phencyclidine Scrn Ur Amphetamines Screen U Benzodiazepines Scrn U Oth Cocaine Metabols U Cannabinoids Screen Alcohol, Quantitative Blood Type A POSITIVE Antibody Screen Negative 12/16/17 12/16/17 12/17/17 23:19 23:19 07:18 WBC 3.8 L 4.5 L RBC 1.36 L 1.58 L Hgb 3.6 L* 4.4 L* Hct 11.4 L 13.2 L MCV 83.7 D 83.6 MCH 26.8 L 27.6 MCHC 32.0 L 33.1 RDW 18.3 H 16.0 H Plt Count 26 L* D 49 L D MPV 11.1 10.4 Neut % (Auto) 77.5 H Lymph % (Auto) 6.2 L [place] % (Auto) 12.0 H Eos % (Auto) 3.5 Baso % (Auto) 0.8 Neut # (Auto) 3.5 Lymph # (Auto) 0.3 L [place] # (Auto) 0.5 Eos # (Auto) 0.2 Baso # (Auto) 0.0 Neutrophils % (Manual) Lymphocytes % (Manual) Monocytes % (Manual) Eosinophils % (Manual) Nucleated RBC % Platelet Estimate Large Platelets Polychromasia Hypochromasia (manual) Poikilocytosis (manual Anisocytosis (manual) Microcytosis (manual) Macrocytosis (manual) Target Cells Ovalocytes Schistocytes PT INR APTT Puncture Site pCO2 pO2 HCO3 ABG pH ABG Total CO2 ABG Base Excess ABG Hemoglobin Servando Test A-a O2 Difference Respiratory Index Liter Flow FiO2 Sodium 127 L Potassium 6.0 H Chloride 106 Carbon Dioxide 11 L* D Anion Gap 15 BUN 52 H Creatinine 2.8 H Est GFR ( Amer) 32 Est GFR (Non-Af Amer) 26 Random Glucose 80 Calcium 8.1 L Phosphorus Magnesium Total Bilirubin AST ALT Alkaline Phosphatase Ammonia Total Protein Albumin Globulin Albumin/Globulin Ratio Urine Color Urine Clarity Urine pH Ur Specific [place] Urine Protein Urine Glucose (UA) Urine Ketones Urine Blood Urine Nitrate Urine Bilirubin Urine Urobilinogen Ur Leukocyte Esterase Urine WBC (Auto) Urine RBC (Auto) Ur Squamous Epith Cells Salicylates Urine Opiates Screen Urine Methadone Screen Acetaminophen Ur Barbiturates Screen Ur Phencyclidine Scrn Ur Amphetamines Screen U Benzodiazepines Scrn U Oth Cocaine Metabols U Cannabinoids Screen Alcohol, Quantitative Blood Type Antibody Screen 12/17/17 07:18 WBC RBC Hgb Hct MCV MCH MCHC RDW Plt Count MPV Neut % (Auto) Lymph % (Auto) [place] % (Auto) Eos % (Auto) Baso % (Auto) Neut # (Auto) Lymph # (Auto) [place] # (Auto) Eos # (Auto) Baso # (Auto) Neutrophils % (Manual) Lymphocytes % (Manual) Monocytes % (Manual) Eosinophils % (Manual) Nucleated RBC % Platelet Estimate Large Platelets Polychromasia Hypochromasia (manual) Poikilocytosis (manual Anisocytosis (manual) Microcytosis (manual) Macrocytosis (manual) Target Cells Ovalocytes Schistocytes PT INR APTT Puncture Site pCO2 pO2 HCO3 ABG pH ABG Total CO2 ABG Base Excess ABG Hemoglobin Servando Test A-a O2 Difference Respiratory Index Liter Flow FiO2 Sodium 134 Potassium 5.0 Chloride 99 Carbon Dioxide 14 L Anion Gap 26 H BUN 51 H Creatinine 3.0 H Est GFR ( Amer) 29 Est GFR (Non-Af Amer) 24 Random Glucose 133 H Calcium 7.2 L Phosphorus 6.4 H Magnesium 2.0 Total Bilirubin 7.0 H AST 35 ALT 25 Alkaline Phosphatase 40 Ammonia Total Protein 6.9 Albumin 2.8 L Globulin 4.1 H Albumin/Globulin Ratio 0.7 L Urine Color Urine Clarity Urine pH Ur Specific [place] Urine Protein Urine Glucose (UA) Urine Ketones Urine Blood Urine Nitrate Urine Bilirubin Urine Urobilinogen Ur Leukocyte Esterase Urine WBC (Auto) Urine RBC (Auto) Ur Squamous Epith Cells Salicylates Urine Opiates Screen Urine Methadone Screen Acetaminophen Ur Barbiturates Screen Ur Phencyclidine Scrn Ur Amphetamines Screen U Benzodiazepines Scrn U Oth Cocaine Metabols U Cannabinoids Screen Alcohol, Quantitative Blood Type Antibody Screen Assessment & Plan - Assessment and Plan (Free Text) Assessment: Patient is a 31yo male with PMHx significant for decompensated alcoholic cirrhosis with esophageal varices s/p banding in July 2016 who presents with altered mental status and severe normocytic anemia -Normocytic anemia; r/o oozing from variceal source; MELD 33, DF22 -Hepatic encephalopathy -Decompensated alcholic cirrhosis -Esophageal varices -Hyperbilirubinemia -Coagulopathy of cirrhosis -Hyperkalemia -Renal Failure, prerenal vs hepatorenal Plan: -Two large bore IVs -IVF as ordered -current hgb 4.4 after 4 units prbc, can give an additional 1-2 units of PRBC -goal hgb ~ 7 -Do not place NGT -Protonix gtt -Octreotide gtt -s/p transfusion of 1 unit FFP -Ceftriaxone 1g IV QD for SBP ppx -Zofran 4mg IV Q8H - standing order -start clears today -Check abdominal U/S -Check AFP -Monitor INR, CMP -recommend renal consult, will need to volume expand to see if renal function improves, if no improvement in 48 hrs consider starting HRS regiment -EGD tomorrow, NPO after midnight D/w Dr. Tamez <Dashawn VELASQUEZ,Lyn - Last Filed: 12/17/17 15:35> Meds - Medications Medications: Current Medications Furosemide (Lasix) 20 mg IVP Q12 [facility] Last Admin: 12/17/17 15:17 Dose: 20 mg Octreotide Acetate 1,250 mcg/ (Dextrose) 252.5 mls @ 5.05 mls/hr SC .Q24H RUPINDER PRN Reason: 25 MCG/HR Last Admin: 12/16/17 19:30 Dose: 5.05 mls/hr Pantoprazole Sodium 80 mg/ (Sodium Chloride) 100 mls @ 10 mls/hr IVPB .Q10H RUPINDER PRN Reason: 8 MG/HR Last Admin: 12/17/17 15:18 Dose: 10 mls/hr Ceftriaxone Sodium (Rocephin Iv 1 Gm Duplex) 50 mls @ 100 mls/hr IVPB DAILY [facility] Last Admin: 12/17/17 14:00 Dose: 100 mls/hr Lactulose (Enulose) 20 gm PO BID [facility] Last Admin: 12/17/17 11:00 Dose: Not Given Results - Vital Signs Recent Vital Signs: Last Vital Signs Temp 98 F 12/17/17 13:00 Pulse 66 12/17/17 13:00 Resp 18 12/17/17 13:00 BP 110/60 12/17/17 15:17 Pulse Ox 100 12/17/17 13:00 - Labs Result Diagrams: 12/17/17 07:18 12/17/17 07:18 Labs: Laboratory Results - last 24 hr 12/16/17 12/16/17 12/16/17 17:42 17:42 17:42 WBC 3.6 L RBC 0.79 L Hgb 1.8 L* D Hct 6.3 L MCV 80.3 D MCH 23.0 L MCHC 28.6 L RDW 22.6 H Plt Count 96 L D MPV 10.8 Neut % (Auto) Lymph % (Auto) [place] % (Auto) Eos % (Auto) Baso % (Auto) Neut # (Auto) Lymph # (Auto) [place] # (Auto) Eos # (Auto) Baso # (Auto) Neutrophils % (Manual) 61 Lymphocytes % (Manual) 24 Monocytes % (Manual) 11 H Eosinophils % (Manual) 4 Nucleated RBC % 6 H Toxic Granulation Platelet Estimate Decreased L Large Platelets Present Polychromasia Slight Hypochromasia (manual) Marked Poikilocytosis (manual Moderate Anisocytosis (manual) Moderate Microcytosis (manual) Slight Macrocytosis (manual) Slight Spherocytes Target Cells Slight Tear Drop Cells Ovalocytes Slight [place] Cells Schistocytes Slight PT INR APTT Puncture Site pCO2 pO2 HCO3 ABG pH ABG Total CO2 ABG Base Excess ABG Hemoglobin Servando Test A-a O2 Difference Respiratory Index Liter Flow FiO2 Sodium 127 L Potassium 6.7 H* D Chloride 102 Carbon Dioxide 14 L Anion Gap 18 BUN 54 H Creatinine 2.9 H Est GFR ( Amer) 30 Est GFR (Non-Af Amer) 25 Random Glucose 81 Calcium 8.3 L Phosphorus Magnesium Total Bilirubin 3.2 H AST 43 ALT 23 Alkaline Phosphatase 43 Ammonia Total Protein 7.2 Albumin 2.7 L Globulin 4.5 H Albumin/Globulin Ratio 0.6 L Urine Color Yellow Urine Clarity Hazy Urine pH 5.0 Ur Specific [place] 1.012 Urine Protein 1+ H Urine Glucose (UA) Normal Urine Ketones Negative Urine Blood Negative Urine Nitrate Negative Urine Bilirubin Negative Urine Urobilinogen Normal Ur Leukocyte Esterase Neg Urine WBC (Auto) 6 H Urine RBC (Auto) 1 Ur Squamous Epith Cells 3 Salicylates Urine Opiates Screen Urine Methadone Screen Acetaminophen Ur Barbiturates Screen Ur Phencyclidine Scrn Ur Amphetamines Screen U Benzodiazepines Scrn U Oth Cocaine Metabols U Cannabinoids Screen Alcohol, Quantitative < 10 Blood Type Antibody Screen 12/16/17 12/16/17 12/16/17 17:42 17:42 17:42 WBC RBC Hgb Hct MCV MCH MCHC RDW Plt Count MPV Neut % (Auto) Lymph % (Auto) [place] % (Auto) Eos % (Auto) Baso % (Auto) Neut # (Auto) Lymph # (Auto) [place] # (Auto) Eos # (Auto) Baso # (Auto) Neutrophils % (Manual) Lymphocytes % (Manual) Monocytes % (Manual) Eosinophils % (Manual) Nucleated RBC % Toxic Granulation Platelet Estimate Large Platelets Polychromasia Hypochromasia (manual) Poikilocytosis (manual Anisocytosis (manual) Microcytosis (manual) Macrocytosis (manual) Spherocytes Target Cells Tear Drop Cells Ovalocytes [place] Cells Schistocytes PT INR APTT Puncture Site pCO2 pO2 HCO3 ABG pH ABG Total CO2 ABG Base Excess ABG Hemoglobin Servando Test A-a O2 Difference Respiratory Index Liter Flow FiO2 Sodium Potassium Chloride Carbon Dioxide Anion Gap BUN Creatinine Est GFR ( Amer) Est GFR (Non-Af Amer) Random Glucose Calcium Phosphorus Magnesium Total Bilirubin AST ALT Alkaline Phosphatase Ammonia 122 H D Total Protein Albumin Globulin Albumin/Globulin Ratio Urine Color Urine Clarity Urine pH Ur Specific [place] Urine Protein Urine Glucose (UA) Urine Ketones Urine Blood Urine Nitrate Urine Bilirubin Urine Urobilinogen Ur Leukocyte Esterase Urine WBC (Auto) Urine RBC (Auto) Ur Squamous Epith Cells Salicylates < 1.0 Urine Opiates Screen Negative Urine Methadone Screen Negative Acetaminophen < 10.0 L Ur Barbiturates Screen Negative Ur Phencyclidine Scrn Negative Ur Amphetamines Screen Negative U Benzodiazepines Scrn Negative U Oth Cocaine Metabols Negative U Cannabinoids Screen Negative Alcohol, Quantitative Blood Type Antibody Screen 12/16/17 12/16/17 12/16/17 18:11 18:59 20:54 WBC RBC Hgb Hct MCV MCH MCHC RDW Plt Count MPV Neut % (Auto) Lymph % (Auto) [place] % (Auto) Eos % (Auto) Baso % (Auto) Neut # (Auto) Lymph # (Auto) [place] # (Auto) Eos # (Auto) Baso # (Auto) Neutrophils % (Manual) Lymphocytes % (Manual) Monocytes % (Manual) Eosinophils % (Manual) Nucleated RBC % Toxic Granulation Platelet Estimate Large Platelets Polychromasia Hypochromasia (manual) Poikilocytosis (manual Anisocytosis (manual) Microcytosis (manual) Macrocytosis (manual) Spherocytes Target Cells Tear Drop Cells Ovalocytes [place] Cells Schistocytes PT 23.7 H INR 2.1 APTT 30 Puncture Site Rba pCO2 21 L pO2 173 H HCO3 17.5 L ABG pH 7.40 ABG Total CO2 13.6 L ABG Base Excess -9.6 L ABG Hemoglobin < 3.0 L Servando Test Na A-a O2 Difference 15.0 Respiratory Index 0.1 Liter Flow 3.0 FiO2 30.0 Sodium Potassium Chloride Carbon Dioxide Anion Gap BUN Creatinine Est GFR ( Amer) Est GFR (Non-Af Amer) Random Glucose Calcium Phosphorus Magnesium Total Bilirubin AST ALT Alkaline Phosphatase Ammonia Total Protein Albumin Globulin Albumin/Globulin Ratio Urine Color Urine Clarity Urine pH Ur Specific [place] Urine Protein Urine Glucose (UA) Urine Ketones Urine Blood Urine Nitrate Urine Bilirubin Urine Urobilinogen Ur Leukocyte Esterase Urine WBC (Auto) Urine RBC (Auto) Ur Squamous Epith Cells Salicylates Urine Opiates Screen Urine Methadone Screen Acetaminophen Ur Barbiturates Screen Ur Phencyclidine Scrn Ur Amphetamines Screen U Benzodiazepines Scrn U Oth Cocaine Metabols U Cannabinoids Screen Alcohol, Quantitative Blood Type A POSITIVE Antibody Screen Negative 12/16/17 12/16/17 12/17/17 23:19 23:19 07:18 WBC 3.8 L 4.5 L RBC 1.36 L 1.58 L Hgb 3.6 L* 4.4 L* Hct 11.4 L 13.2 L MCV 83.7 D 83.6 MCH 26.8 L 27.6 MCHC 32.0 L 33.1 RDW 18.3 H 16.0 H Plt Count 26 L* D 49 L D MPV 11.1 10.4 Neut % (Auto) 77.5 H Lymph % (Auto) 6.2 L [place] % (Auto) 12.0 H Eos % (Auto) 3.5 Baso % (Auto) 0.8 Neut # (Auto) 3.5 Lymph # (Auto) 0.3 L [place] # (Auto) 0.5 Eos # (Auto) 0.2 Baso # (Auto) 0.0 Neutrophils % (Manual) 79 H Lymphocytes % (Manual) 7 L Monocytes % (Manual) 12 H Eosinophils % (Manual) 2 Nucleated RBC % 1 H Toxic Granulation Present Platelet Estimate Markedly decreased L Large Platelets Present Polychromasia Slight Hypochromasia (manual) Slight Poikilocytosis (manual Slight Anisocytosis (manual) Slight Microcytosis (manual) Slight Macrocytosis (manual) Slight Spherocytes Slight Target Cells Slight Tear Drop Cells Slight Ovalocytes Slight [place] Cells Slight Schistocytes Slight PT INR APTT Puncture Site pCO2 pO2 HCO3 ABG pH ABG Total CO2 ABG Base Excess ABG Hemoglobin Servando Test A-a O2 Difference Respiratory Index Liter Flow FiO2 Sodium 127 L Potassium 6.0 H Chloride 106 Carbon Dioxide 11 L* D Anion Gap 15 BUN 52 H Creatinine 2.8 H Est GFR ( Amer) 32 Est GFR (Non-Af Amer) 26 Random Glucose 80 Calcium 8.1 L Phosphorus Magnesium Total Bilirubin AST ALT Alkaline Phosphatase Ammonia Total Protein Albumin Globulin Albumin/Globulin Ratio Urine Color Urine Clarity Urine pH Ur Specific [place] Urine Protein Urine Glucose (UA) Urine Ketones Urine Blood Urine Nitrate Urine Bilirubin Urine Urobilinogen Ur Leukocyte Esterase Urine WBC (Auto) Urine RBC (Auto) Ur Squamous Epith Cells Salicylates Urine Opiates Screen Urine Methadone Screen Acetaminophen Ur Barbiturates Screen Ur Phencyclidine Scrn Ur Amphetamines Screen U Benzodiazepines Scrn U Oth Cocaine Metabols U Cannabinoids Screen Alcohol, Quantitative Blood Type Antibody Screen 12/17/17 07:18 WBC RBC Hgb Hct MCV MCH MCHC RDW Plt Count MPV Neut % (Auto) Lymph % (Auto) [place] % (Auto) Eos % (Auto) Baso % (Auto) Neut # (Auto) Lymph # (Auto) [place] # (Auto) Eos # (Auto) Baso # (Auto) Neutrophils % (Manual) Lymphocytes % (Manual) Monocytes % (Manual) Eosinophils % (Manual) Nucleated RBC % Toxic Granulation Platelet Estimate Large Platelets Polychromasia Hypochromasia (manual) Poikilocytosis (manual Anisocytosis (manual) Microcytosis (manual) Macrocytosis (manual) Spherocytes Target Cells Tear Drop Cells Ovalocytes [place] Cells Schistocytes PT INR APTT Puncture Site pCO2 pO2 HCO3 ABG pH ABG Total CO2 ABG Base Excess ABG Hemoglobin Servando Test A-a O2 Difference Respiratory Index Liter Flow FiO2 Sodium 134 Potassium 5.0 Chloride 99 Carbon Dioxide 14 L Anion Gap 26 H BUN 51 H Creatinine 3.0 H Est GFR ( Amer) 29 Est GFR (Non-Af Amer) 24 Random Glucose 133 H Calcium 7.2 L Phosphorus 6.4 H Magnesium 2.0 Total Bilirubin 7.0 H AST 35 ALT 25 Alkaline Phosphatase 40 Ammonia Total Protein 6.9 Albumin 2.8 L Globulin 4.1 H Albumin/Globulin Ratio 0.7 L Urine Color Urine Clarity Urine pH Ur Specific [place] Urine Protein Urine Glucose (UA) Urine Ketones Urine Blood Urine Nitrate Urine Bilirubin Urine Urobilinogen Ur Leukocyte Esterase Urine WBC (Auto) Urine RBC (Auto) Ur Squamous Epith Cells Salicylates Urine Opiates Screen Urine Methadone Screen Acetaminophen Ur Barbiturates Screen Ur Phencyclidine Scrn Ur Amphetamines Screen U Benzodiazepines Scrn U Oth Cocaine Metabols U Cannabinoids Screen Alcohol, Quantitative Blood Type Antibody Screen Attending/Attestation - Attestation I have personally seen and examined this patient.: Yes I have fully participated in the care of the patient.: Yes I have reviewed all pertinent clinical information: Yes Notes (Text): 12/17/17 15:20 Patient seen with GI fellow on rounds. This is a 31 year old male with PMHx significant for decompensated alcoholic cirrhosis with esophageal varices s/p banding in July 2016 who presents with altered mental status and severe normocytic anemia. MELD 33, DF 22. According to the labs and thrombocytopenia, and hyperbilirubinemia patient is still abusing alcohol even though he does not admit. Abdominal sonogram with PV hepatofugal flow. s/p 4 units PRBC and 2 u FFP. Trend CBC daily and keep INR less than 1.5 and platelets more than 50k. -current hgb 4.4 after 4 units prbc, can give an additional 1-2 units of PRBC -Goal hgb ~ 7 -Do not place NGT -Protonix gtt -Octreotide gtt -Ceftriaxone 1g IV QD for SBP ppx -Zofran 4mg IV Q8H - standing order -start clears today -Monitor INR, CMP -recommend renal consult, will need to volume expand to see if renal function improves, if no improvement in 48 hrs consider starting HRS regiment -EGD tomorrow, NPO after midnight
[2017-12-17 08:30] LABS: EOSINOPHIL 2 % (0-4); NEUTROPHIL 79 % (50-75); NUCLEATED RED BLOOD CELL 1 % (0-0); TOTAL CELLS COUNTED 100
[2017-12-17 08:31] LABS: LYMPHOCYTE 7 % (20-40); MONOCYTE 12 % (0-10)
[2017-12-17 08:32] LABS: ANISOCYTOSIS SLIGHT; MICROCYTOSIS SLIGHT; PLATELET ESTIMATE MARKEDLY DECREASED (NORMAL); POIKILOCYTOSIS SLIGHT
[2017-12-17 08:33] LABS: HYPOCHROMIC SLIGHT; POLYCHROMIC SLIGHT
[2017-12-17 08:34] LABS: BURR CELLS SLIGHT; OVALOCYTES SLIGHT; SCHISTOCYTES SLIGHT; SPHEROCYTES SLIGHT; TEARDROP CELLS SLIGHT
[2017-12-17 08:35] LABS: LARGE PLATELETS PRESENT; TARGET CELLS SLIGHT; TOXIC GRANULATION PRESENT
--- NOTE | 2017-12-17 09:15 | RAD ---
HISTORY: Admission COMPARISON: Comparison chest radiograph 09/07/16. FINDINGS: LUNGS: Mild bibasilar atelectasis.Slight increased vascularity. PLEURA: No significant pleural effusion identified, no pneumothorax apparent. CARDIOVASCULAR: Marked cardiomegaly. OSSEOUS STRUCTURES: No significant abnormalities. VISUALIZED UPPER ABDOMEN: Normal. OTHER FINDINGS: None. IMPRESSION: Mild bibasilar atelectasis.Slight increased vascularity. Marked cardiomegaly
--- NOTE | 2017-12-17 09:32 | CP.PCM.CON ---
History of Present Illness - History of Present Illness History of Present Illness: CC: severe anemia HPI: Per brother Asael patient was brought from home to the ED because he was not responsive. He states when his father found him this morning he called him and when he arrived his brother just kept rolling his eyes in which he then called 911. He states his brother continuously lies and tells the family he is not drinking and is applying for insurance. He continued to make excuses stating he could not get an appointment with a physician. The brother states the patient told him he had went to the ED recently but the brother kept calling and his brother was never in an ED. Patient was examined at bedside. Patient opens his eyes when you call his name and sternal rub. Patient is non-verbal so ROS could not be obtained. PMD: None Past Medical History: Denies Past Surgical History: Denies Family History: Mother when patient was 12 years old due to a stroke ; Father is still living Medications: None Allergies: NKDA Social History: per brother patient has been known to sneak alcohol but no one in his family knows how much beer or other liquor he drinks. He has had a job for about 3 years now and spends most his days at home. He currently is living with his father. He is but his is currently in [place]. ROS noted O/E: pt lethargic but protecting airway opening eyes for deep stimuli chest good air entry regular hs abd soft and distension lethargic edema generalised labs noted severe anemia coagulopathy CXR clear blood in the mouth old endo reviewed showing grade 3 varices near normal LFT and possible exausted liver a/p: pt with advanced liver disease, portal gastropathy, varices, anasarca anemia and renal failure high ammonia and encepalopathy. poor prognosis high mortality GI eval FFP, PRBC, octreotide,protonix drip supportive care Past Patient History - Past Medical History & Family History Past Medical History?: Yes - Past Social History Smoking Status: Never Smoked - CARDIAC Hx Atrial Fibrillation: No - PULMONARY Hx Respiratory Disorders: No - NEUROLOGICAL Hx Neurological Disorder: No - HEENT Hx HEENT Problems: No - RENAL Hx Chronic Kidney Disease: No - ENDOCRINE/METABOLIC Hx Endocrine Disorders: No - HEMATOLOGICAL/ONCOLOGICAL Hx Anemia: Yes - INTEGUMENTARY Hx Dermatological Problems: No - MUSCULOSKELETAL/RHEUMATOLOGICAL Hx Falls: No - GASTROINTESTINAL Hx Gastritis: Yes - GENITOURINARY/GYNECOLOGICAL Hx Genitourinary Disorders: No - PSYCHIATRIC Hx Substance Use: No - SURGICAL HISTORY Hx Surgeries: No - ANESTHESIA Hx Anesthesia: Yes Hx Anesthesia Reactions: No Meds Allergies/Adverse Reactions: Allergies Allergy/AdvReac Type Severity Reaction Status Date / Time No Known Allergies Allergy Verified 09/07/16 10:21 - Medications Medications: Current Medications Furosemide (Lasix) 20 mg IVP Q12 RUPINDER Last Admin: 12/16/17 23:43 Dose: 20 mg Octreotide Acetate 1,250 mcg/ (Dextrose) 252.5 mls @ 5.05 mls/hr SC .Q24H RUPINDER PRN Reason: 25 MCG/HR Last Admin: 12/16/17 19:30 Dose: 5.05 mls/hr Pantoprazole Sodium 80 mg/ (Sodium Chloride) 100 mls @ 10 mls/hr IVPB .Q10H RUPINDER PRN Reason: 8 MG/HR Last Admin: 12/17/17 05:07 Dose: 10 mls/hr Results - Vital Signs Recent Vital Signs: Last Vital Signs Temp 98 F 12/17/17 08:00 Pulse 65 12/17/17 08:30 Resp 15 12/17/17 08:30 BP 91/36 L 12/17/17 08:00 Pulse Ox 100 12/17/17 08:30 - Labs Result Diagrams: 12/17/17 07:18 12/17/17 07:18 Labs: Laboratory Results - last 24 hr 12/16/17 12/16/17 12/16/17 17:42 17:42 17:42 WBC 3.6 L RBC 0.79 L Hgb 1.8 L* D Hct 6.3 L MCV 80.3 D MCH 23.0 L MCHC 28.6 L RDW 22.6 H Plt Count 96 L D MPV 10.8 Neut % (Auto) Lymph % (Auto) [place] % (Auto) Eos % (Auto) Baso % (Auto) Neut # (Auto) Lymph # (Auto) [place] # (Auto) Eos # (Auto) Baso # (Auto) Neutrophils % (Manual) 61 Lymphocytes % (Manual) 24 Monocytes % (Manual) 11 H Eosinophils % (Manual) 4 Nucleated RBC % 6 H Toxic Granulation Platelet Estimate Decreased L Large Platelets Present Polychromasia Slight Hypochromasia (manual) Marked Poikilocytosis (manual Moderate Anisocytosis (manual) Moderate Microcytosis (manual) Slight Macrocytosis (manual) Slight Spherocytes Target Cells Slight Tear Drop Cells Ovalocytes Slight Rankin Cells Schistocytes Slight PT INR APTT Puncture Site pCO2 pO2 HCO3 ABG pH ABG Total CO2 ABG Base Excess ABG Hemoglobin Servando Test A-a O2 Difference Respiratory Index Liter Flow FiO2 Sodium 127 L Potassium 6.7 H* D Chloride 102 Carbon Dioxide 14 L Anion Gap 18 BUN 54 H Creatinine 2.9 H Est GFR ( Amer) 30 Est GFR (Non-Af Amer) 25 Random Glucose 81 Calcium 8.3 L Phosphorus Magnesium Total Bilirubin 3.2 H AST 43 ALT 23 Alkaline Phosphatase 43 Ammonia Total Protein 7.2 Albumin 2.7 L Globulin 4.5 H Albumin/Globulin Ratio 0.6 L Urine Color Yellow Urine Clarity Hazy Urine pH 5.0 Ur Specific [place] 1.012 Urine Protein 1+ H Urine Glucose (UA) Normal Urine Ketones Negative Urine Blood Negative Urine Nitrate Negative Urine Bilirubin Negative Urine Urobilinogen Normal Ur Leukocyte Esterase Neg Urine WBC (Auto) 6 H Urine RBC (Auto) 1 Ur Squamous Epith Cells 3 Salicylates Urine Opiates Screen Urine Methadone Screen Acetaminophen Ur Barbiturates Screen Ur Phencyclidine Scrn Ur Amphetamines Screen U Benzodiazepines Scrn U Oth Cocaine Metabols U Cannabinoids Screen Alcohol, Quantitative < 10 Blood Type Antibody Screen 12/16/17 12/16/17 12/16/17 17:42 17:42 17:42 WBC RBC Hgb Hct MCV MCH MCHC RDW Plt Count MPV Neut % (Auto) Lymph % (Auto) [place] % (Auto) Eos % (Auto) Baso % (Auto) Neut # (Auto) Lymph # (Auto) [place] # (Auto) Eos # (Auto) Baso # (Auto) Neutrophils % (Manual) Lymphocytes % (Manual) Monocytes % (Manual) Eosinophils % (Manual) Nucleated RBC % Toxic Granulation Platelet Estimate Large Platelets Polychromasia Hypochromasia (manual) Poikilocytosis (manual Anisocytosis (manual) Microcytosis (manual) Macrocytosis (manual) Spherocytes Target Cells Tear Drop Cells Ovalocytes Sheeba Cells Schistocytes PT INR APTT Puncture Site pCO2 pO2 HCO3 ABG pH ABG Total CO2 ABG Base Excess ABG Hemoglobin Servando Test A-a O2 Difference Respiratory Index Liter Flow FiO2 Sodium Potassium Chloride Carbon Dioxide Anion Gap BUN Creatinine Est GFR ( Amer) Est GFR (Non-Af Amer) Random Glucose Calcium Phosphorus Magnesium Total Bilirubin AST ALT Alkaline Phosphatase Ammonia 122 H D Total Protein Albumin Globulin Albumin/Globulin Ratio Urine Color Urine Clarity Urine pH Ur Specific [place] Urine Protein Urine Glucose (UA) Urine Ketones Urine Blood Urine Nitrate Urine Bilirubin Urine Urobilinogen Ur Leukocyte Esterase Urine WBC (Auto) Urine RBC (Auto) Ur Squamous Epith Cells Salicylates < 1.0 Urine Opiates Screen Negative Urine Methadone Screen Negative Acetaminophen < 10.0 L Ur Barbiturates Screen Negative Ur Phencyclidine Scrn Negative Ur Amphetamines Screen Negative U Benzodiazepines Scrn Negative U Oth Cocaine Metabols Negative U Cannabinoids Screen Negative Alcohol, Quantitative Blood Type Antibody Screen 12/16/17 12/16/17 12/16/17 18:11 18:59 20:54 WBC RBC Hgb Hct MCV MCH MCHC RDW Plt Count MPV Neut % (Auto) Lymph % (Auto) [place] % (Auto) Eos % (Auto) Baso % (Auto) Neut # (Auto) Lymph # (Auto) [place] # (Auto) Eos # (Auto) Baso # (Auto) Neutrophils % (Manual) Lymphocytes % (Manual) Monocytes % (Manual) Eosinophils % (Manual) Nucleated RBC % Toxic Granulation Platelet Estimate Large Platelets Polychromasia Hypochromasia (manual) Poikilocytosis (manual Anisocytosis (manual) Microcytosis (manual) Macrocytosis (manual) Spherocytes Target Cells Tear Drop Cells Ovalocytes Rankin Cells Schistocytes PT 23.7 H INR 2.1 APTT 30 Puncture Site Rba pCO2 21 L pO2 173 H HCO3 17.5 L ABG pH 7.40 ABG Total CO2 13.6 L ABG Base Excess -9.6 L ABG Hemoglobin < 3.0 L Servando Test Na A-a O2 Difference 15.0 Respiratory Index 0.1 Liter Flow 3.0 FiO2 30.0 Sodium Potassium Chloride Carbon Dioxide Anion Gap BUN Creatinine Est GFR ( Amer) Est GFR (Non-Af Amer) Random Glucose Calcium Phosphorus Magnesium Total Bilirubin AST ALT Alkaline Phosphatase Ammonia Total Protein Albumin Globulin Albumin/Globulin Ratio Urine Color Urine Clarity Urine pH Ur Specific [place] Urine Protein Urine Glucose (UA) Urine Ketones Urine Blood Urine Nitrate Urine Bilirubin Urine Urobilinogen Ur Leukocyte Esterase Urine WBC (Auto) Urine RBC (Auto) Ur Squamous Epith Cells Salicylates Urine Opiates Screen Urine Methadone Screen Acetaminophen Ur Barbiturates Screen Ur Phencyclidine Scrn Ur Amphetamines Screen U Benzodiazepines Scrn U Oth Cocaine Metabols U Cannabinoids Screen Alcohol, Quantitative Blood Type A POSITIVE Antibody Screen Negative 12/16/17 12/16/17 12/17/17 23:19 23:19 07:18 WBC 3.8 L 4.5 L RBC 1.36 L 1.58 L Hgb 3.6 L* 4.4 L* Hct 11.4 L 13.2 L MCV 83.7 D 83.6 MCH 26.8 L 27.6 MCHC 32.0 L 33.1 RDW 18.3 H 16.0 H Plt Count 26 L* D 49 L D MPV 11.1 10.4 Neut % (Auto) 77.5 H Lymph % (Auto) 6.2 L [place] % (Auto) 12.0 H Eos % (Auto) 3.5 Baso % (Auto) 0.8 Neut # (Auto) 3.5 Lymph # (Auto) 0.3 L [place] # (Auto) 0.5 Eos # (Auto) 0.2 Baso # (Auto) 0.0 Neutrophils % (Manual) 79 H Lymphocytes % (Manual) 7 L Monocytes % (Manual) 12 H Eosinophils % (Manual) 2 Nucleated RBC % 1 H Toxic Granulation Present Platelet Estimate Markedly decreased L Large Platelets Present Polychromasia Slight Hypochromasia (manual) Slight Poikilocytosis (manual Slight Anisocytosis (manual) Slight Microcytosis (manual) Slight Macrocytosis (manual) Slight Spherocytes Slight Target Cells Slight Tear Drop Cells Slight Ovalocytes Slight Sheeba Cells Slight Schistocytes Slight PT INR APTT Puncture Site pCO2 pO2 HCO3 ABG pH ABG Total CO2 ABG Base Excess ABG Hemoglobin Servando Test A-a O2 Difference Respiratory Index Liter Flow FiO2 Sodium 127 L Potassium 6.0 H Chloride 106 Carbon Dioxide 11 L* D Anion Gap 15 BUN 52 H Creatinine 2.8 H Est GFR ( Amer) 32 Est GFR (Non-Af Amer) 26 Random Glucose 80 Calcium 8.1 L Phosphorus Magnesium Total Bilirubin AST ALT Alkaline Phosphatase Ammonia Total Protein Albumin Globulin Albumin/Globulin Ratio Urine Color Urine Clarity Urine pH Ur Specific [place] Urine Protein Urine Glucose (UA) Urine Ketones Urine Blood Urine Nitrate Urine Bilirubin Urine Urobilinogen Ur Leukocyte Esterase Urine WBC (Auto) Urine RBC (Auto) Ur Squamous Epith Cells Salicylates Urine Opiates Screen Urine Methadone Screen Acetaminophen Ur Barbiturates Screen Ur Phencyclidine Scrn Ur Amphetamines Screen U Benzodiazepines Scrn U Oth Cocaine Metabols U Cannabinoids Screen Alcohol, Quantitative Blood Type Antibody Screen 12/17/17 07:18 WBC RBC Hgb Hct MCV MCH MCHC RDW Plt Count MPV Neut % (Auto) Lymph % (Auto) [place] % (Auto) Eos % (Auto) Baso % (Auto) Neut # (Auto) Lymph # (Auto) [place] # (Auto) Eos # (Auto) Baso # (Auto) Neutrophils % (Manual) Lymphocytes % (Manual) Monocytes % (Manual) Eosinophils % (Manual) Nucleated RBC % Toxic Granulation Platelet Estimate Large Platelets Polychromasia Hypochromasia (manual) Poikilocytosis (manual Anisocytosis (manual) Microcytosis (manual) Macrocytosis (manual) Spherocytes Target Cells Tear Drop Cells Ovalocytes Sheeba Cells Schistocytes PT INR APTT Puncture Site pCO2 pO2 HCO3 ABG pH ABG Total CO2 ABG Base Excess ABG Hemoglobin Servando Test A-a O2 Difference Respiratory Index Liter Flow FiO2 Sodium 134 Potassium 5.0 Chloride 99 Carbon Dioxide 14 L Anion Gap 26 H BUN 51 H Creatinine 3.0 H Est GFR ( Amer) 29 Est GFR (Non-Af Amer) 24 Random Glucose 133 H Calcium 7.2 L Phosphorus 6.4 H Magnesium 2.0 Total Bilirubin 7.0 H AST 35 ALT 25 Alkaline Phosphatase 40 Ammonia Total Protein 6.9 Albumin 2.8 L Globulin 4.1 H Albumin/Globulin Ratio 0.7 L Urine Color Urine Clarity Urine pH Ur Specific [place] Urine Protein Urine Glucose (UA) Urine Ketones Urine Blood Urine Nitrate Urine Bilirubin Urine Urobilinogen Ur Leukocyte Esterase Urine WBC (Auto) Urine RBC (Auto) Ur Squamous Epith Cells Salicylates Urine Opiates Screen Urine Methadone Screen Acetaminophen Ur Barbiturates Screen Ur Phencyclidine Scrn Ur Amphetamines Screen U Benzodiazepines Scrn U Oth Cocaine Metabols U Cannabinoids Screen Alcohol, Quantitative Blood Type Antibody Screen
--- NOTE | 2017-12-17 09:44 | CP.CCUPN ---
CCU Subjective - Physician Review Events Since Last Encounter (Free Text): 12/17/17 09:43 CC: severe anemia HPI: Per brother Asael patient was brought from home to the ED because he was not responsive. He states when his father found him this morning he called him and when he arrived his brother just kept rolling his eyes in which he then called 911. He states his brother continuously lies and tells the family he is not drinking and is applying for insurance. He continued to make excuses stating he could not get an appointment with a physician. The brother states the patient told him he had went to the ED recently but the brother kept calling and his brother was never in an ED. Patient was examined at bedside. Patient opens his eyes when you call his name and sternal rub. Patient is non-verbal so ROS could not be obtained. PMD: None Past Medical History: Denies Past Surgical History: Denies Family History: Mother when patient was 12 years old due to a stroke ; Father is still living Medications: None Allergies: NKDA Social History: per brother patient has been known to sneak alcohol but no one in his family knows how much beer or other liquor he drinks. He has had a job for about 3 years now and spends most his days at home. He currently is living with his father. He is but his is currently in [place]. ROS noted O/E: pt lethargic but protecting airway opening eyes for deep stimuli chest good air entry regular hs abd soft and distension lethargic edema generalised labs noted severe anemia coagulopathy CXR clear blood in the mouth old endo reviewed showing grade 3 varices near normal LFT and possible exausted liver a/p: pt with advanced liver disease, portal gastropathy, varices, anasarca anemia and renal failure high ammonia and encepalopathy. poor prognosis high mortality GI eval FFP, PRBC, octreotide,protonix drip supportive care changes: received ffp and blood vk lactulose will continue GI for endo in am CCU Objective - Vital Signs / Intake & Output Vital Signs (Last 4 hours): Vital Signs Temp Pulse Resp BP Pulse Ox 12/17/17 08:30 65 15 100 12/17/17 08:00 98 F 66 18 91/36 L 98 12/17/17 07:40 67 12 100 12/17/17 07:32 69 16 101/51 L 100 12/17/17 07:30 69 19 100 12/17/17 07:20 61 13 100 12/17/17 07:17 68 16 91/36 L 100 12/17/17 07:10 65 16 100 12/17/17 07:03 63 18 101/47 L 100 12/17/17 07:00 97.6 F 63 16 100 12/17/17 06:50 64 17 100 12/17/17 06:47 66 16 111/54 L 100 12/17/17 06:40 64 16 100 12/17/17 06:32 68 13 114/46 L 100 12/17/17 06:30 66 15 100 12/17/17 06:20 63 15 100 12/17/17 06:17 64 16 110/41 L 100 12/17/17 06:10 64 19 100 12/17/17 06:03 64 15 109/32 L 100 12/17/17 06:00 97.6 F 65 14 100 12/17/17 05:50 63 17 100 12/17/17 05:47 63 17 100/42 L 100 Intake and Output (Last 8hrs): Intake & Output 12/16/17 12/17/17 12/17/17 22:59 06:59 14:59 Intake Total 545 1550 115 Output Total 60 195 20 Balance 485 1355 95 Weight 180 lb 147 lb Intake: Intake, IV Amount 195 325 115 Left External Jugular 30 70 10 Right External Jugular 15 35 5 Right Wrist 150 220 100 Oral 0 Blood Product 350 1125 Red Blood Cells Cpd As1 325 Lr Unit [id number] Other 100 Red Blood Cells Cpd As1 100 Lr Unit [id number] Output: Urine 60 195 20 Urethral (Zamarripa) 60 195 20 Other: Voiding Method Indwelling Catheter # Bowel Movements 1 - Medications Active Medications: Active Medications Generic Name Dose Route Start Last Admin Trade Name Freq PRN Reason Stop Dose Admin Furosemide 20 mg 12/16/17 22:00 12/16/17 23:43 Lasix IVP 20 mg Q12 RUPINDER Administration Octreotide Acetate 1,250 mcg/ 252.5 mls @ 5.05 mls/hr 12/16/17 19:00 19:30 Dextrose SC 5.05 mls/hr .Q24H RUPINDER Administration 25 MCG/HR Pantoprazole Sodium 80 mg/ 100 mls @ 10 mls/hr 12/16/17 19:00 12/17/17 05:07 Sodium Chloride IVPB 10 mls/hr .Q10H RUPINDER Administration 8 MG/HR - Patient Studies Lab Studies: Lab Studies 12/17/17 12/17/17 12/16/17 Range/Units 07:18 07:18 23:19 WBC 4.5 L 3.8 L (4.8-10.8) K/uL RBC 1.58 L 1.36 L (4.40-5.90) Mil/uL Hgb 4.4 L* 3.6 L* (12.0-18.0) g/dL Hct 13.2 L 11.4 L (35.0-51.0) % MCV 83.6 83.7 D (80.0-94.0) fL MCH 27.6 26.8 L (27.0-31.0) pg MCHC 33.1 32.0 L (33.0-37.0) g/dL RDW 16.0 H 18.3 H (11.5-14.5) % Plt Count 49 L D 26 L* D (130-400) K/uL MPV 10.4 11.1 (7.2-11.7) fL Neut % (Auto) 77.5 H (50.0-75.0) % Lymph % (Auto) 6.2 L (20.0-40.0) % [place] % (Auto) 12.0 H (0.0-10.0) % Eos % (Auto) 3.5 (0.0-4.0) % Baso % (Auto) 0.8 (0.0-2.0) % Neut # (Auto) 3.5 (1.8-7.0) K/uL Lymph # (Auto) 0.3 L (1.0-4.3) K/uL [place] # (Auto) 0.5 (0.0-0.8) K/uL Eos # (Auto) 0.2 (0.0-0.7) K/uL Baso # (Auto) 0.0 (0.0-0.2) K/uL Neutrophils % (Manual) 79 H (50-75) % Lymphocytes % (Manual) 7 L (20-40) % Monocytes % (Manual) 12 H (0-10) % Eosinophils % (Manual) 2 (0-4) % Nucleated RBC % 1 H (0-0) % Toxic Granulation Present Platelet Estimate Markedly decreased L (NORMAL) Large Platelets Present Polychromasia Slight Hypochromasia (manual) Slight Poikilocytosis (manual Slight Anisocytosis (manual) Slight Microcytosis (manual) Slight Macrocytosis (manual) Slight Spherocytes Slight Target Cells Slight Tear Drop Cells Slight Ovalocytes Slight [place] Cells Slight Schistocytes Slight PT (9.7-12.2) SECONDS INR APTT (21-34) SECONDS Puncture Site pCO2 (35-45) mm/Hg pO2 (80-100) mm/Hg HCO3 (21-28) mmol/L ABG pH (7.35-7.45) ABG Total CO2 (22-28) mmol/L ABG Base Excess (-2.0-3.0) mmol/L ABG Hemoglobin (11.7-17.4) g/dL Servando Test A-a O2 Difference mm/Hg Respiratory Index Liter Flow FiO2 % Sodium 134 (132-148) mmol/L Potassium 5.0 (3.6-5.2) mmol/L Chloride 99 (98-107) mmol/L Carbon Dioxide 14 L (22-30) mmol/L Anion Gap 26 H (10-20) BUN 51 H (9-20) mg/dL Creatinine 3.0 H (0.8-1.5) mg/dL Est GFR ( Amer) 29 Est GFR (Non-Af Amer) 24 Random Glucose 133 H (75-110) mg/dL Calcium 7.2 L (8.6-10.4) mg/dl Phosphorus 6.4 H (2.5-4.5) mg/dL Magnesium 2.0 (1.6-2.3) mg/dL Total Bilirubin 7.0 H (0.2-1.3) mg/dL AST 35 (17-59) U/L ALT 25 (21-72) U/L Alkaline Phosphatase 40 (38-126) U/L Ammonia (9-33) umol/L Total Protein 6.9 (6.3-8.3) g/dL Albumin 2.8 L (3.5-5.0) g/dL Globulin 4.1 H (2.2-3.9) gm/dL Albumin/Globulin Ratio 0.7 L (1.0-2.1) Urine Color (YELLOW) Urine Clarity (Clear) Urine pH (5.0-8.0) Ur Specific [place] (1.003-1.030) Urine Protein (NEGATIVE) mg/dL Urine Glucose (UA) (Normal) mg/dL Urine Ketones (NEGATIVE) mg/dL Urine Blood (NEGATIVE) Urine Nitrate (NEGATIVE) Urine Bilirubin (NEGATIVE) Urine Urobilinogen (0.2-1.0) mg/dL Ur Leukocyte Esterase (Negative) Kiesha/uL Urine WBC (Auto) (0-5) /hpf Urine RBC (Auto) (0-3) /hpf Ur Squamous Epith Cells (0-5) /hpf Salicylates mg/dL 1 Urine Opiates Screen (NEGATIVE) Urine Methadone Screen (NEGATIVE) Acetaminophen (10.0-30.0) ug/mL Ur Barbiturates Screen (NEGATIVE) Ur Phencyclidine Scrn (NEGATIVE) Ur Amphetamines Screen (NEGATIVE) U Benzodiazepines Scrn (NEGATIVE) U Oth Cocaine Metabols (NEGATIVE) U Cannabinoids Screen (NEGATIVE) Alcohol, Quantitative (0-10) mg/dl Blood Type Antibody Screen 12/16/17 12/16/17 12/16/17 Range/Units 23:19 20:54 18:59 WBC (4.8-10.8) K/uL RBC (4.40-5.90) Mil/uL Hgb (12.0-18.0) g/dL Hct (35.0-51.0) % MCV (80.0-94.0) fL MCH (27.0-31.0) pg MCHC (33.0-37.0) g/dL RDW (11.5-14.5) % Plt Count (130-400) K/uL MPV (7.2-11.7) fL Neut % (Auto) (50.0-75.0) % Lymph % (Auto) (20.0-40.0) % [place] % (Auto) (0.0-10.0) % Eos % (Auto) (0.0-4.0) % Baso % (Auto) (0.0-2.0) % Neut # (Auto) (1.8-7.0) K/uL Lymph # (Auto) (1.0-4.3) K/uL [place] # (Auto) (0.0-0.8) K/uL Eos # (Auto) (0.0-0.7) K/uL Baso # (Auto) (0.0-0.2) K/uL Neutrophils % (Manual) (50-75) % Lymphocytes % (Manual) (20-40) % Monocytes % (Manual) (0-10) % Eosinophils % (Manual) (0-4) % Nucleated RBC % (0-0) % Toxic Granulation Platelet Estimate (NORMAL) Large Platelets Polychromasia Hypochromasia (manual) Poikilocytosis (manual Anisocytosis (manual) Microcytosis (manual) Macrocytosis (manual) Spherocytes Target Cells Tear Drop Cells Ovalocytes [place] Cells Schistocytes PT 23.7 H (9.7-12.2) SECONDS INR 2.1 APTT 30 (21-34) SECONDS Puncture Site Rba pCO2 21 L (35-45) mm/Hg pO2 173 H (80-100) mm/Hg HCO3 17.5 L (21-28) mmol/L ABG pH 7.40 (7.35-7.45) ABG Total CO2 13.6 L (22-28) mmol/L ABG Base Excess -9.6 L (-2.0-3.0) mmol/L ABG Hemoglobin < 3.0 L (11.7-17.4) g/dL Servando Test Na A-a O2 Difference 15.0 mm/Hg Respiratory Index 0.1 Liter Flow 3.0 FiO2 30.0 % Sodium 127 L (132-148) mmol/L Potassium 6.0 H (3.6-5.2) mmol/L Chloride 106 (98-107) mmol/L Carbon Dioxide 11 L* D (22-30) mmol/L Anion Gap 15 (10-20) BUN 52 H (9-20) mg/dL Creatinine 2.8 H (0.8-1.5) mg/dL Est GFR ( Amer) 32 Est GFR (Non-Af Amer) 26 Random Glucose 80 (75-110) mg/dL Calcium 8.1 L (8.6-10.4) mg/dl Phosphorus (2.5-4.5) mg/dL Magnesium (1.6-2.3) mg/dL Total Bilirubin (0.2-1.3) mg/dL AST (17-59) U/L ALT (21-72) U/L Alkaline Phosphatase (38-126) U/L Ammonia (9-33) umol/L Total Protein (6.3-8.3) g/dL Albumin (3.5-5.0) g/dL Globulin (2.2-3.9) gm/dL Albumin/Globulin Ratio (1.0-2.1) Urine Color (YELLOW) Urine Clarity (Clear) Urine pH (5.0-8.0) Ur Specific [place] (1.003-1.030) Urine Protein (NEGATIVE) mg/dL Urine Glucose (UA) (Normal) mg/dL Urine Ketones (NEGATIVE) mg/dL Urine Blood (NEGATIVE) Urine Nitrate (NEGATIVE) Urine Bilirubin (NEGATIVE) Urine Urobilinogen (0.2-1.0) mg/dL Ur Leukocyte Esterase (Negative) Kiesha/uL Urine WBC (Auto) (0-5) /hpf Urine RBC (Auto) (0-3) /hpf Ur Squamous Epith Cells (0-5) /hpf Salicylates mg/dL 1 Urine Opiates Screen (NEGATIVE) Urine Methadone Screen (NEGATIVE) Acetaminophen (10.0-30.0) ug/mL Ur Barbiturates Screen (NEGATIVE) Ur Phencyclidine Scrn (NEGATIVE) Ur Amphetamines Screen (NEGATIVE) U Benzodiazepines Scrn (NEGATIVE) U Oth Cocaine Metabols (NEGATIVE) U Cannabinoids Screen (NEGATIVE) Alcohol, Quantitative (0-10) mg/dl Blood Type Antibody Screen 12/16/17 12/16/17 12/16/17 Range/Units 18:11 17:42 17:42 WBC (4.8-10.8) K/uL RBC (4.40-5.90) Mil/uL Hgb (12.0-18.0) g/dL Hct (35.0-51.0) % MCV (80.0-94.0) fL MCH (27.0-31.0) pg MCHC (33.0-37.0) g/dL RDW (11.5-14.5) % Plt Count (130-400) K/uL MPV (7.2-11.7) fL Neut % (Auto) (50.0-75.0) % Lymph % (Auto) (20.0-40.0) % [place] % (Auto) (0.0-10.0) % Eos % (Auto) (0.0-4.0) % Baso % (Auto) (0.0-2.0) % Neut # (Auto) (1.8-7.0) K/uL Lymph # (Auto) (1.0-4.3) K/uL [place] # (Auto) (0.0-0.8) K/uL Eos # (Auto) (0.0-0.7) K/uL Baso # (Auto) (0.0-0.2) K/uL Neutrophils % (Manual) (50-75) % Lymphocytes % (Manual) (20-40) % Monocytes % (Manual) (0-10) % Eosinophils % (Manual) (0-4) % Nucleated RBC % (0-0) % Toxic Granulation Platelet Estimate (NORMAL) Large Platelets Polychromasia Hypochromasia (manual) Poikilocytosis (manual Anisocytosis (manual) Microcytosis (manual) Macrocytosis (manual) Spherocytes Target Cells Tear Drop Cells Ovalocytes [place] Cells Schistocytes PT (9.7-12.2) SECONDS INR APTT (21-34) SECONDS Puncture Site pCO2 (35-45) mm/Hg pO2 (80-100) mm/Hg HCO3 (21-28) mmol/L ABG pH (7.35-7.45) ABG Total CO2 (22-28) mmol/L ABG Base Excess (-2.0-3.0) mmol/L ABG Hemoglobin (11.7-17.4) g/dL Servando Test A-a O2 Difference mm/Hg Respiratory Index Liter Flow FiO2 % Sodium (132-148) mmol/L Potassium (3.6-5.2) mmol/L Chloride (98-107) mmol/L Carbon Dioxide (22-30) mmol/L Anion Gap (10-20) BUN (9-20) mg/dL Creatinine (0.8-1.5) mg/dL Est GFR ( Amer) Est GFR (Non-Af Amer) Random Glucose (75-110) mg/dL Calcium (8.6-10.4) mg/dl Phosphorus (2.5-4.5) mg/dL Magnesium (1.6-2.3) mg/dL Total Bilirubin (0.2-1.3) mg/dL AST (17-59) U/L ALT (21-72) U/L Alkaline Phosphatase (38-126) U/L Ammonia (9-33) umol/L Total Protein (6.3-8.3) g/dL Albumin (3.5-5.0) g/dL Globulin (2.2-3.9) gm/dL Albumin/Globulin Ratio (1.0-2.1) Urine Color (YELLOW) Urine Clarity (Clear) Urine pH (5.0-8.0) Ur Specific [place] (1.003-1.030) Urine Protein (NEGATIVE) mg/dL Urine Glucose (UA) (Normal) mg/dL Urine Ketones (NEGATIVE) mg/dL Urine Blood (NEGATIVE) Urine Nitrate (NEGATIVE) Urine Bilirubin (NEGATIVE) Urine Urobilinogen (0.2-1.0) mg/dL Ur Leukocyte Esterase (Negative) Kiesha/uL Urine WBC (Auto) (0-5) /hpf Urine RBC (Auto) (0-3) /hpf Ur Squamous Epith Cells (0-5) /hpf Salicylates < 1.0 mg/dL 1 Urine Opiates Screen Negative (NEGATIVE) Urine Methadone Screen Negative (NEGATIVE) Acetaminophen < 10.0 L (10.0-30.0) ug/mL Ur Barbiturates Screen Negative (NEGATIVE) Ur Phencyclidine Scrn Negative (NEGATIVE) Ur Amphetamines Screen Negative (NEGATIVE) U Benzodiazepines Scrn Negative (NEGATIVE) U Oth Cocaine Metabols Negative (NEGATIVE) U Cannabinoids Screen Negative (NEGATIVE) Alcohol, Quantitative (0-10) mg/dl Blood Type A POSITIVE Antibody Screen Negative 12/16/17 12/16/17 12/16/17 Range/Units 17:42 17:42 17:42 WBC (4.8-10.8) K/uL RBC (4.40-5.90) Mil/uL Hgb (12.0-18.0) g/dL Hct (35.0-51.0) % MCV (80.0-94.0) fL MCH (27.0-31.0) pg MCHC (33.0-37.0) g/dL RDW (11.5-14.5) % Plt Count (130-400) K/uL MPV (7.2-11.7) fL Neut % (Auto) (50.0-75.0) % Lymph % (Auto) (20.0-40.0) % [place] % (Auto) (0.0-10.0) % Eos % (Auto) (0.0-4.0) % Baso % (Auto) (0.0-2.0) % Neut # (Auto) (1.8-7.0) K/uL Lymph # (Auto) (1.0-4.3) K/uL [place] # (Auto) (0.0-0.8) K/uL Eos # (Auto) (0.0-0.7) K/uL Baso # (Auto) (0.0-0.2) K/uL Neutrophils % (Manual) (50-75) % Lymphocytes % (Manual) (20-40) % Monocytes % (Manual) (0-10) % Eosinophils % (Manual) (0-4) % Nucleated RBC % (0-0) % Toxic Granulation Platelet Estimate (NORMAL) Large Platelets Polychromasia Hypochromasia (manual) Poikilocytosis (manual Anisocytosis (manual) Microcytosis (manual) Macrocytosis (manual) Spherocytes Target Cells Tear Drop Cells Ovalocytes [place] Cells Schistocytes PT (9.7-12.2) SECONDS INR APTT (21-34) SECONDS Puncture Site pCO2 (35-45) mm/Hg pO2 (80-100) mm/Hg HCO3 (21-28) mmol/L ABG pH (7.35-7.45) ABG Total CO2 (22-28) mmol/L ABG Base Excess (-2.0-3.0) mmol/L ABG Hemoglobin (11.7-17.4) g/dL Servando Test A-a O2 Difference mm/Hg Respiratory Index Liter Flow FiO2 % Sodium 127 L (132-148) mmol/L Potassium 6.7 H* D (3.6-5.2) mmol/L Chloride 102 (98-107) mmol/L Carbon Dioxide 14 L (22-30) mmol/L Anion Gap 18 (10-20) BUN 54 H (9-20) mg/dL Creatinine 2.9 H (0.8-1.5) mg/dL Est GFR ( Amer) 30 Est GFR (Non-Af Amer) 25 Random Glucose 81 (75-110) mg/dL Calcium 8.3 L (8.6-10.4) mg/dl Phosphorus (2.5-4.5) mg/dL Magnesium (1.6-2.3) mg/dL Total Bilirubin 3.2 H (0.2-1.3) mg/dL AST 43 (17-59) U/L ALT 23 (21-72) U/L Alkaline Phosphatase 43 (38-126) U/L Ammonia 122 H D (9-33) umol/L Total Protein 7.2 (6.3-8.3) g/dL Albumin 2.7 L (3.5-5.0) g/dL Globulin 4.5 H (2.2-3.9) gm/dL Albumin/Globulin Ratio 0.6 L (1.0-2.1) Urine Color Yellow (YELLOW) Urine Clarity Hazy (Clear) Urine pH 5.0 (5.0-8.0) Ur Specific [place] 1.012 (1.003-1.030) Urine Protein 1+ H (NEGATIVE) mg/dL Urine Glucose (UA) Normal (Normal) mg/dL Urine Ketones Negative (NEGATIVE) mg/dL Urine Blood Negative (NEGATIVE) Urine Nitrate Negative (NEGATIVE) Urine Bilirubin Negative (NEGATIVE) Urine Urobilinogen Normal (0.2-1.0) mg/dL Ur Leukocyte Esterase Neg (Negative) Kiesha/uL Urine WBC (Auto) 6 H (0-5) /hpf Urine RBC (Auto) 1 (0-3) /hpf Ur Squamous Epith Cells 3 (0-5) /hpf Salicylates mg/dL 1 Urine Opiates Screen (NEGATIVE) Urine Methadone Screen (NEGATIVE) Acetaminophen (10.0-30.0) ug/mL Ur Barbiturates Screen (NEGATIVE) Ur Phencyclidine Scrn (NEGATIVE) Ur Amphetamines Screen (NEGATIVE) U Benzodiazepines Scrn (NEGATIVE) U Oth Cocaine Metabols (NEGATIVE) U Cannabinoids Screen (NEGATIVE) Alcohol, Quantitative < 10 (0-10) mg/dl Blood Type Antibody Screen 12/16/17 Range/Units 17:42 WBC 3.6 L (4.8-10.8) K/uL RBC 0.79 L (4.40-5.90) Mil/uL Hgb 1.8 L* D (12.0-18.0) g/dL Hct 6.3 L (35.0-51.0) % MCV 80.3 D (80.0-94.0) fL MCH 23.0 L (27.0-31.0) pg MCHC 28.6 L (33.0-37.0) g/dL RDW 22.6 H (11.5-14.5) % Plt Count 96 L D (130-400) K/uL MPV 10.8 (7.2-11.7) fL Neut % (Auto) (50.0-75.0) % Lymph % (Auto) (20.0-40.0) % [place] % (Auto) (0.0-10.0) % Eos % (Auto) (0.0-4.0) % Baso % (Auto) (0.0-2.0) % Neut # (Auto) (1.8-7.0) K/uL Lymph # (Auto) (1.0-4.3) K/uL [place] # (Auto) (0.0-0.8) K/uL Eos # (Auto) (0.0-0.7) K/uL Baso # (Auto) (0.0-0.2) K/uL Neutrophils % (Manual) 61 (50-75) % Lymphocytes % (Manual) 24 (20-40) % Monocytes % (Manual) 11 H (0-10) % Eosinophils % (Manual) 4 (0-4) % Nucleated RBC % 6 H (0-0) % Toxic Granulation Platelet Estimate Decreased L (NORMAL) Large Platelets Present Polychromasia Slight Hypochromasia (manual) Marked Poikilocytosis (manual Moderate Anisocytosis (manual) Moderate Microcytosis (manual) Slight Macrocytosis (manual) Slight Spherocytes Target Cells Slight Tear Drop Cells Ovalocytes Slight [place] Cells Schistocytes Slight PT (9.7-12.2) SECONDS INR APTT (21-34) SECONDS Puncture Site pCO2 (35-45) mm/Hg pO2 (80-100) mm/Hg HCO3 (21-28) mmol/L ABG pH (7.35-7.45) ABG Total CO2 (22-28) mmol/L ABG Base Excess (-2.0-3.0) mmol/L ABG Hemoglobin (11.7-17.4) g/dL Servando Test A-a O2 Difference mm/Hg Respiratory Index Liter Flow FiO2 % Sodium (132-148) mmol/L Potassium (3.6-5.2) mmol/L Chloride (98-107) mmol/L Carbon Dioxide (22-30) mmol/L Anion Gap (10-20) BUN (9-20) mg/dL Creatinine (0.8-1.5) mg/dL Est GFR ( Amer) Est GFR (Non-Af Amer) Random Glucose (75-110) mg/dL Calcium (8.6-10.4) mg/dl Phosphorus (2.5-4.5) mg/dL Magnesium (1.6-2.3) mg/dL Total Bilirubin (0.2-1.3) mg/dL AST (17-59) U/L ALT (21-72) U/L Alkaline Phosphatase (38-126) U/L Ammonia (9-33) umol/L Total Protein (6.3-8.3) g/dL Albumin (3.5-5.0) g/dL Globulin (2.2-3.9) gm/dL Albumin/Globulin Ratio (1.0-2.1) Urine Color (YELLOW) Urine Clarity (Clear) Urine pH (5.0-8.0) Ur Specific [place] (1.003-1.030) Urine Protein (NEGATIVE) mg/dL Urine Glucose (UA) (Normal) mg/dL Urine Ketones (NEGATIVE) mg/dL Urine Blood (NEGATIVE) Urine Nitrate (NEGATIVE) Urine Bilirubin (NEGATIVE) Urine Urobilinogen (0.2-1.0) mg/dL Ur Leukocyte Esterase (Negative) Kiesha/uL Urine WBC (Auto) (0-5) /hpf Urine RBC (Auto) (0-3) /hpf Ur Squamous Epith Cells (0-5) /hpf Salicylates mg/dL 1 Urine Opiates Screen (NEGATIVE) Urine Methadone Screen (NEGATIVE) Acetaminophen (10.0-30.0) ug/mL Ur Barbiturates Screen (NEGATIVE) Ur Phencyclidine Scrn (NEGATIVE) Ur Amphetamines Screen (NEGATIVE) U Benzodiazepines Scrn (NEGATIVE) U Oth Cocaine Metabols (NEGATIVE) U Cannabinoids Screen (NEGATIVE) Alcohol, Quantitative (0-10) mg/dl Blood Type Antibody Screen Laboratory Results - last 24 hr 12/16/17 12/16/17 12/16/17 17:42 17:42 17:42 WBC 3.6 L RBC 0.79 L Hgb 1.8 L* D Hct 6.3 L MCV 80.3 D MCH 23.0 L MCHC 28.6 L RDW 22.6 H Plt Count 96 L D MPV 10.8 Neut % (Auto) Lymph % (Auto) [place] % (Auto) Eos % (Auto) Baso % (Auto) Neut # (Auto) Lymph # (Auto) [place] # (Auto) Eos # (Auto) Baso # (Auto) Neutrophils % (Manual) 61 Lymphocytes % (Manual) 24 Monocytes % (Manual) 11 H Eosinophils % (Manual) 4 Nucleated RBC % 6 H Toxic Granulation Platelet Estimate Decreased L Large Platelets Present Polychromasia Slight Hypochromasia (manual) Marked Poikilocytosis (manual Moderate Anisocytosis (manual) Moderate Microcytosis (manual) Slight Macrocytosis (manual) Slight Spherocytes Target Cells Slight Tear Drop Cells Ovalocytes Slight [place]eba Cells Schistocytes Slight PT INR APTT Puncture Site pCO2 pO2 HCO3 ABG pH ABG Total CO2 ABG Base Excess ABG Hemoglobin Servando Test A-a O2 Difference Respiratory Index Liter Flow FiO2 Sodium 127 L Potassium 6.7 H* D Chloride 102 Carbon Dioxide 14 L Anion Gap 18 BUN 54 H Creatinine 2.9 H Est GFR ( Amer) 30 Est GFR (Non-Af Amer) 25 Random Glucose 81 Calcium 8.3 L Phosphorus Magnesium Total Bilirubin 3.2 H AST 43 ALT 23 Alkaline Phosphatase 43 Ammonia Total Protein 7.2 Albumin 2.7 L Globulin 4.5 H Albumin/Globulin Ratio 0.6 L Urine Color Yellow Urine Clarity Hazy Urine pH 5.0 Ur Specific [place] 1.012 Urine Protein 1+ H Urine Glucose (UA) Normal Urine Ketones Negative Urine Blood Negative Urine Nitrate Negative Urine Bilirubin Negative Urine Urobilinogen Normal Ur Leukocyte Esterase Neg Urine WBC (Auto) 6 H Urine RBC (Auto) 1 Ur Squamous Epith Cells 3 Salicylates Urine Opiates Screen Urine Methadone Screen Acetaminophen Ur Barbiturates Screen Ur Phencyclidine Scrn Ur Amphetamines Screen U Benzodiazepines Scrn U Oth Cocaine Metabols U Cannabinoids Screen Alcohol, Quantitative < 10 Blood Type Antibody Screen 12/16/17 12/16/17 12/16/17 17:42 17:42 17:42 WBC RBC Hgb Hct MCV MCH MCHC RDW Plt Count MPV Neut % (Auto) Lymph % (Auto) [place] % (Auto) Eos % (Auto) Baso % (Auto) Neut # (Auto) Lymph # (Auto) [place] # (Auto) Eos # (Auto) Baso # (Auto) Neutrophils % (Manual) Lymphocytes % (Manual) Monocytes % (Manual) Eosinophils % (Manual) Nucleated RBC % Toxic Granulation Platelet Estimate Large Platelets Polychromasia Hypochromasia (manual) Poikilocytosis (manual Anisocytosis (manual) Microcytosis (manual) Macrocytosis (manual) Spherocytes Target Cells Tear Drop Cells Ovalocytes [place] Cells Schistocytes PT INR APTT Puncture Site pCO2 pO2 HCO3 ABG pH ABG Total CO2 ABG Base Excess ABG Hemoglobin Servando Test A-a O2 Difference Respiratory Index Liter Flow FiO2 Sodium Potassium Chloride Carbon Dioxide Anion Gap BUN Creatinine Est GFR ( Amer) Est GFR (Non-Af Amer) Random Glucose Calcium Phosphorus Magnesium Total Bilirubin AST ALT Alkaline Phosphatase Ammonia 122 H D Total Protein Albumin Globulin Albumin/Globulin Ratio Urine Color Urine Clarity Urine pH Ur Specific [place] Urine Protein Urine Glucose (UA) Urine Ketones Urine Blood Urine Nitrate Urine Bilirubin Urine Urobilinogen Ur Leukocyte Esterase Urine WBC (Auto) Urine RBC (Auto) Ur Squamous Epith Cells Salicylates < 1.0 Urine Opiates Screen Negative Urine Methadone Screen Negative Acetaminophen < 10.0 L Ur Barbiturates Screen Negative Ur Phencyclidine Scrn Negative Ur Amphetamines Screen Negative U Benzodiazepines Scrn Negative U Oth Cocaine Metabols Negative U Cannabinoids Screen Negative Alcohol, Quantitative Blood Type Antibody Screen 12/16/17 12/16/17 12/16/17 18:11 18:59 20:54 WBC RBC Hgb Hct MCV MCH MCHC RDW Plt Count MPV Neut % (Auto) Lymph % (Auto) [place] % (Auto) Eos % (Auto) Baso % (Auto) Neut # (Auto) Lymph # (Auto) [place] # (Auto) Eos # (Auto) Baso # (Auto) Neutrophils % (Manual) Lymphocytes % (Manual) Monocytes % (Manual) Eosinophils % (Manual) Nucleated RBC % Toxic Granulation Platelet Estimate Large Platelets Polychromasia Hypochromasia (manual) Poikilocytosis (manual Anisocytosis (manual) Microcytosis (manual) Macrocytosis (manual) Spherocytes Target Cells Tear Drop Cells Ovalocytes [place] Cells Schistocytes PT 23.7 H INR 2.1 APTT 30 Puncture Site Rba pCO2 21 L pO2 173 H HCO3 17.5 L ABG pH 7.40 ABG Total CO2 13.6 L ABG Base Excess -9.6 L ABG Hemoglobin < 3.0 L Servando Test Na A-a O2 Difference 15.0 Respiratory Index 0.1 Liter Flow 3.0 FiO2 30.0 Sodium Potassium Chloride Carbon Dioxide Anion Gap BUN Creatinine Est GFR ( Amer) Est GFR (Non-Af Amer) Random Glucose Calcium Phosphorus Magnesium Total Bilirubin AST ALT Alkaline Phosphatase Ammonia Total Protein Albumin Globulin Albumin/Globulin Ratio Urine Color Urine Clarity Urine pH Ur Specific [place] Urine Protein Urine Glucose (UA) Urine Ketones Urine Blood Urine Nitrate Urine Bilirubin Urine Urobilinogen Ur Leukocyte Esterase Urine WBC (Auto) Urine RBC (Auto) Ur Squamous Epith Cells Salicylates Urine Opiates Screen Urine Methadone Screen Acetaminophen Ur Barbiturates Screen Ur Phencyclidine Scrn Ur Amphetamines Screen U Benzodiazepines Scrn U Oth Cocaine Metabols U Cannabinoids Screen Alcohol, Quantitative Blood Type A POSITIVE Antibody Screen Negative 12/16/17 12/16/17 12/17/17 23:19 23:19 07:18 WBC 3.8 L 4.5 L RBC 1.36 L 1.58 L Hgb 3.6 L* 4.4 L* Hct 11.4 L 13.2 L MCV 83.7 D 83.6 MCH 26.8 L 27.6 MCHC 32.0 L 33.1 RDW 18.3 H 16.0 H Plt Count 26 L* D 49 L D MPV 11.1 10.4 Neut % (Auto) 77.5 H Lymph % (Auto) 6.2 L [place] % (Auto) 12.0 H Eos % (Auto) 3.5 Baso % (Auto) 0.8 Neut # (Auto) 3.5 Lymph # (Auto) 0.3 L [place] # (Auto) 0.5 Eos # (Auto) 0.2 Baso # (Auto) 0.0 Neutrophils % (Manual) 79 H Lymphocytes % (Manual) 7 L Monocytes % (Manual) 12 H Eosinophils % (Manual) 2 Nucleated RBC % 1 H Toxic Granulation Present Platelet Estimate Markedly decreased L Large Platelets Present Polychromasia Slight Hypochromasia (manual) Slight Poikilocytosis (manual Slight Anisocytosis (manual) Slight Microcytosis (manual) Slight Macrocytosis (manual) Slight Spherocytes Slight Target Cells Slight Tear Drop Cells Slight Ovalocytes Slight Sheeba Cells Slight Schistocytes Slight PT INR APTT Puncture Site pCO2 pO2 HCO3 ABG pH ABG Total CO2 ABG Base Excess ABG Hemoglobin Servando Test A-a O2 Difference Respiratory Index Liter Flow FiO2 Sodium 127 L Potassium 6.0 H Chloride 106 Carbon Dioxide 11 L* D Anion Gap 15 BUN 52 H Creatinine 2.8 H Est GFR ( Amer) 32 Est GFR (Non-Af Amer) 26 Random Glucose 80 Calcium 8.1 L Phosphorus Magnesium Total Bilirubin AST ALT Alkaline Phosphatase Ammonia Total Protein Albumin Globulin Albumin/Globulin Ratio Urine Color Urine Clarity Urine pH Ur Specific [place] Urine Protein Urine Glucose (UA) Urine Ketones Urine Blood Urine Nitrate Urine Bilirubin Urine Urobilinogen Ur Leukocyte Esterase Urine WBC (Auto) Urine RBC (Auto) Ur Squamous Epith Cells Salicylates Urine Opiates Screen Urine Methadone Screen Acetaminophen Ur Barbiturates Screen Ur Phencyclidine Scrn Ur Amphetamines Screen U Benzodiazepines Scrn U Oth Cocaine Metabols U Cannabinoids Screen Alcohol, Quantitative Blood Type Antibody Screen 12/17/17 07:18 WBC RBC Hgb Hct MCV MCH MCHC RDW Plt Count MPV Neut % (Auto) Lymph % (Auto) [place] % (Auto) Eos % (Auto) Baso % (Auto) Neut # (Auto) Lymph # (Auto) [place] # (Auto) Eos # (Auto) Baso # (Auto) Neutrophils % (Manual) Lymphocytes % (Manual) Monocytes % (Manual) Eosinophils % (Manual) Nucleated RBC % Toxic Granulation Platelet Estimate Large Platelets Polychromasia Hypochromasia (manual) Poikilocytosis (manual Anisocytosis (manual) Microcytosis (manual) Macrocytosis (manual) Spherocytes Target Cells Tear Drop Cells Ovalocytes Sheeba Cells Schistocytes PT INR APTT Puncture Site pCO2 pO2 HCO3 ABG pH ABG Total CO2 ABG Base Excess ABG Hemoglobin Servando Test A-a O2 Difference Respiratory Index Liter Flow FiO2 Sodium 134 Potassium 5.0 Chloride 99 Carbon Dioxide 14 L Anion Gap 26 H BUN 51 H Creatinine 3.0 H Est GFR ( Amer) 29 Est GFR (Non-Af Amer) 24 Random Glucose 133 H Calcium 7.2 L Phosphorus 6.4 H Magnesium 2.0 Total Bilirubin 7.0 H AST 35 ALT 25 Alkaline Phosphatase 40 Ammonia Total Protein 6.9 Albumin 2.8 L Globulin 4.1 H Albumin/Globulin Ratio 0.7 L Urine Color Urine Clarity Urine pH Ur Specific [place] Urine Protein Urine Glucose (UA) Urine Ketones Urine Blood Urine Nitrate Urine Bilirubin Urine Urobilinogen Ur Leukocyte Esterase Urine WBC (Auto) Urine RBC (Auto) Ur Squamous Epith Cells Salicylates Urine Opiates Screen Urine Methadone Screen Acetaminophen Ur Barbiturates Screen Ur Phencyclidine Scrn Ur Amphetamines Screen U Benzodiazepines Scrn U Oth Cocaine Metabols U Cannabinoids Screen Alcohol, Quantitative Blood Type Antibody Screen EKG/Cardiology Studies: Cardiology / EKG Studies 12/16/17 17:30 ELECTROCARDIOGRAM Stat Comment: Mode Of Transportation: BED Reason For Exam: Detox/Psy
[2017-12-17] MEDS: cefTRIAXone IV 1 gm in Dextros 50 ML IVPB SCH (14:00)
--- NOTE | 2017-12-17 15:11 | CP.PCM.PN ---
Subjective - Date & Time of Evaluation Date of Evaluation: 12/17/17 Time of Evaluation: 15:10 - Subjective Subjective: Medical Attending Note Patient seen and examined. Patient responds to his name. Patient reports he was hungry. Patient's son was in the the ICU earlier. Patient denies surreptious alcohol use. He does confirm aleve and using for back pain. Objective - Vital Signs/Intake and Output Vital Signs (last 24 hours): Temp Pulse Resp BP Pulse Ox 98 F 66 18 105/52 L 100 12/17/17 13:00 12/17/17 13:00 12/17/17 13:00 12/17/17 13:00 12/17/17 13:00 Intake and Output: 12/17/17 12/17/17 06:59 18:59 Intake Total 2095 440 Output Total 255 20 Balance 1840 420 - Medications Medications: Current Medications Furosemide (Lasix) 20 mg IVP Q12 [facility] Last Admin: 12/16/17 23:43 Dose: 20 mg Octreotide Acetate 1,250 mcg/ (Dextrose) 252.5 mls @ 5.05 mls/hr SC .Q24H [facility] PRN Reason: 25 MCG/HR Last Admin: 12/16/17 19:30 Dose: 5.05 mls/hr Pantoprazole Sodium 80 mg/ (Sodium Chloride) 100 mls @ 10 mls/hr IVPB .Q10H [facility] PRN Reason: 8 MG/HR Last Admin: 12/17/17 05:07 Dose: 10 mls/hr Ceftriaxone Sodium (Rocephin Iv 1 Gm Duplex) 50 mls @ 100 mls/hr IVPB DAILY [facility] Lactulose (Enulose) 20 gm PO BID [facility] Last Admin: 12/17/17 11:00 Dose: Not Given - Labs Labs: 12/17/17 07:18 12/17/17 07:18 PT 23.7 SECONDS (9.7-12.2) H 12/16/17 18:59 INR 2.1 12/16/17 18:59 APTT 30 SECONDS (21-34) 12/16/17 18:59 - Constitutional Appears: Younger Than Stated Age, Chronically Ill - Head Exam Head Exam: NORMAL INSPECTION - Eye Exam Eye Exam: EOMI - Respiratory Exam Respiratory Exam: Decreased Breath Sounds, NORMAL BREATHING PATTERN. absent: Respiratory Distress, Stridor - Cardiovascular Exam Cardiovascular Exam: REGULAR RHYTHM, +S1, +S2 - GI/Abdominal Exam GI & Abdominal Exam: Distended, Soft, Normal Bowel Sounds. absent: Firm, Guarding, Rigid, Tenderness, Rebound - Extremities Exam Extremities Exam: Pedal Edema. absent: Tenderness - Neurological Exam Neurological Exam: Alert, Awake - Skin Skin Exam: Dry, Warm Assessment and Plan (1) Hepatic encephalopathy Status: Acute (2) Anemia Status: Acute (3) Esophageal varices Status: Acute (4) Cirrhosis Status: Acute (5) Pancytopenia Status: Acute (6) Prophylactic measure Status: Acute Attending/Attestation - Attestation I have personally seen and examined this patient.: Yes I have fully participated in the care of the patient.: Yes I have reviewed all pertinent clinical information, including history, physical exam and plan: Yes Notes (Text): This is late computer entry for 12/17/17. Patient was seen, examined and case discussed with ICU and GI. I met the patient and his brother last night. Per discussion with the brother, patient with known history of alcohol use. Patient is more awake and alert. Responding to pet name, Laurent when I speak with him. When I spoke with brother last night, patient was last seen awake and alert eating dinner Monday night, during the Monday, his father noted patient was more lethargic and sleepy during the day. The brother sent his friend to evaluate the patient and noted patient was not responding to him and called 911. Patient to receive blood products and repeat lab work for later this evening per ICU and scheduled for GI intervention for the AM. Assessment/Plan 1) Altered Mental Status Secondary Hepatic Encephalopathy History of Liver Cirrhosis with Known History of Varices GI Bleed Severe Anemia likely secondary to GI bleed Coagulopathy * Admitted to the Critical Care Unit * GI (Dr. Pelaez) on the case-->help appreciated * Plan for procedure tomorrow 12/18/17 * Abdominal US (09/08/16): increased echogenicity of the liver consistent with stated history of cirrhosis. Gallbladder wall thickening up to 6mm which may be related to liver pathology/cirrhosis versus less likely cholecystitis. * Abdominal US (12/18/17): ascites. Hepatic cirrhosis. Reversal of normal flow direction in portal vein. No evidence of portal venous thrombosis. Mildly thickening gallbladder wall, nonspecific. Marked splenomegaly. * Prior Endoscopy (2015): Grade III varcies in the lower third of esopahgus. One varix with visible vessel present. Three bands successfuly placed with incomplete eradication of varcies. 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 Portal Hypertensive gastropathy in gastric body. * Prior endoscopy (2015): grade II and large (>5mm) varcies with no bleeding were found in the middle third of the esophagus. Lower third the esophagus and the GE junction 30 to 40 cm from the incisors. Stigmata of recent bledding. Varices had red mary signs. Six bands were successfully placed with complete eradication resulting in deflation of varices. Bleeding had stopped at the end of the procedure. * 12/17: Given: 3 units of PRBC and 1 unit of FFP overnight; Patient given today 1 unit of PRBC and 1 FFP. No adverse reaction noted * On Octreotide Drip started 12/16/17 * On Protonix Drip started 12/16/17 * Rocephin 1 gram IVPB daily (active since 12/17/17) * CT Head (12/16/17): no definite acute intracranial abnormality. (further findings per report) 2) Acute Renal Failure * Nephrology (Dr. Keen) on consult for further recommendations * Unclear if renal failure is reflection of patient's suspected bleeding, hepatorenal syndrome given liver cirrhosis * Baseline Creatine: 0.6 (09/10/16) * Monitor urine output 3) B/l lower leg swelling * Likely secondary to decompensated liver cirrhosis and elevated INR * Will obtain venous doppler b/l lower extremities and echocardiogram when patient is more stable 4) Hyperkalemia * Given in the ED, given Calcium gluconate 1amp, 1 amp D50, 10 units of Regular insulin to stabilize the potassium; Patient given additional Kayaexlate overnight. Potassium improved. * EKG In the ED: ST depression V4 and V5 (not official read). W 5) Prophylactic Measure * Chemical anticoagulation secondary to likely varcieal bleeding given severe anemia * Protonix Drip * Octreotide Drip
[2017-12-17 16:55] LABS: MEAN CELL VOLUME 83.3 fL (80.0-94.0); MEAN CORPUSCULAR HGB CONC 33.6 g/dL (33.0-37.0); MEAN PLATELET VOLUME 10.4 fL (7.2-11.7); RBC 1.93 Mil/uL (4.40-5.90); RED CELL DISTRIBUTION WIDTH 16.3 % (11.5-14.5); WHITE BLOOD COUNT 4.3 K/uL (4.8-10.8)
[2017-12-17 17:03] LABS: HEMOGLOBIN 5.4 g/dL (12.0-18.0)
[2017-12-17] MEDS: Octreotide 1,250 MCG in Dextrose 5% In Water 250 ML SC SCH (19:10)
[2017-12-17 19:56] LABS: INR 1.8; PROTHROMBIN TIME 20.9 SECONDS (9.7-12.2)
[2017-12-18] MEDS: Pantoprazole 80 MG in Sodium Chloride 0.9% 100 ML IVPB SCH ×3 (00:33→11:00)
[2017-12-18 06:48] LABS: MEAN CELL VOLUME 82.6 fL (80.0-94.0); MEAN CORPUSCULAR HEMOGLOBIN 28.1 pg (27.0-31.0); MEAN PLATELET VOLUME 10.7 fL (7.2-11.7); RBC 2.13 Mil/uL (4.40-5.90); RED CELL DISTRIBUTION WIDTH 16.6 % (11.5-14.5); WHITE BLOOD COUNT 3.4 K/uL (4.8-10.8)
[2017-12-18 06:55] LABS: INR 1.9; PROTHROMBIN TIME 21.5 SECONDS (9.7-12.2)
[2017-12-18 07:11] LABS: ALB/GLOB RATIO 0.6 (1.0-2.1); ALBUMIN 2.6 g/dL (3.5-5.0); CALCIUM 8.3 mg/dl (8.6-10.4)
[2017-12-18 07:17] LABS: CREATININE, RANDOM URINE 60.4 mg/dL
[2017-12-18 09:01] LABS: LYMPH # 0.6 K/uL (1.0-4.3); NEUT # 2.1 K/uL (1.8-7.0)
[2017-12-18 09:02] LABS: EOS # 0.2 K/uL (0.0-0.7); MONO # 0.4 K/uL (0.0-0.8)
[2017-12-18] MEDS: Vitamins A & D Oint UD Foilpak TOP SCH ×2 (09:42→17:35)
[2017-12-18] MEDS: cefTRIAXone IV 1 gm in Dextros 50 ML IVPB SCH (09:44)
--- NOTE | 2017-12-18 10:35 | CP.PCM.PN ---
Subjective - Date & Time of Evaluation Date of Evaluation: 12/18/17 Time of Evaluation: 10:15 - Subjective Subjective: Hosptitalist Progress Note Patient was seen and examined at 10:15 AM with brother Asael [phone] present at bedside with patient permission Patient states and assures me during exam that he is taking the following medications (despite not following up with the [facility] since Aug 2016 by obtaining refills through his Uncle who is a Pharmacist in [place]): Aldactone 100 mg PO 1x/day Lasix 40 mg PO 1x/day Inderal 10 mg PO 1x/day Protonix 40 mg PO 1x/day Lactulose 30 gm PO 1x/day Vitamin B12 1000 PO 1x/day States that he takes OTC Aleve daily for Chronic Low Back Pain (states that he has had this for years after working in [employer]). ROS: Had last bowel movement yesterday and this was normal as per him NO chest pain NO palpitations NO n/v/d/c NO burning/pain with urination NO new changes in vision NO new changes in hearing NO paresthesias Bilateral Feet/Leg Edema since August 2016 Also on Exam: HEENT: NCA, EOMI, PERRLA, (+) Scleral Icterus bilaterallyNO Pharyngeal erythema/ exudate, NO cervical/supraclavicular/submandibular lymphadenopathy, NO thyromegaly Cardio: NS1 and NS2, NO M/R/G Resp: CTA B/L, NO R/R/W GI: NT, (+) Distention, BSx4, Liver and Spleen could not be adequately palpated , NO rebound/guarding Ext: Pulses are strong and equal, Capillary Refill is 2 seconds, (+) Edema 1+ from bilateral feet to the the knees. Skin: has a slightly yellowish hue to it particularly upper body Neuro: CN II through XII are grossly intact Patient's Hgb/Hct now at 6.0 and just finished another unit of PRBC. He has received multiple units of FFP INR improved to 1.9 after Vitamin K 10 mg IV x 1 dose 12/16/17. Potassium has decreased and normalized to 4.8 after Keyexalate, Calcium Gluconate, Insulin on 12/16/17. GI Team plans to take patient for Upper Endoscopy later today. F/U further recommendations from Nephrology Dr. Ren for Acute Renal Failure F/U Abdominal U/S report Patient stated that he does not drink. However, brother stated otherwise. Explained to patient that he has Alcohol related Liver failure and that he will need to follow up with [facility] through our [facility] Assessment/Plan 1) Altered Mental Status Secondary Hepatic Encephalopathy History of Liver Cirrhosis with Known History of Varices GI Bleed Severe Anemia likely secondary to GI bleed Coagulopathy * Admitted to the Critical Care Unit * GI (Dr. Pelaez) on the case-->help appreciated * Plan for procedure tomorrow 12/18/17 * Abdominal US (09/08/16): increased echogenicity of the liver consistent with stated history of cirrhosis. Gallbladder wall thickening up to 6mm which may be related to liver pathology/cirrhosis versus less likely cholecystitis. * Abdominal US (12/18/17): ascites. Hepatic cirrhosis. Reversal of normal flow direction in portal vein. No evidence of portal venous thrombosis. Mildly thickening gallbladder wall, nonspecific. Marked splenomegaly. * Prior Endoscopy (2015): Grade III varcies in the lower third of esopahgus. One varix with visible vessel present. Three bands successfuly placed with incomplete eradication of varcies. 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 Portal Hypertensive gastropathy in gastric body. * Prior endoscopy (2015): grade II and large (>5mm) varcies with no bleeding were found in the middle third of the esophagus. Lower third the esophagus and the GE junction 30 to 40 cm from the incisors. Stigmata of recent bledding. Varices had red mary signs. Six bands were successfully placed with complete eradication resulting in deflation of varices. Bleeding had stopped at the end of the procedure. * 2/: Given: 3 units of PRBC and 1 unit of FFP overnight; Patient given today 1 unit of PRBC and 1 FFP. No adverse reaction noted * On Octreotide Drip started 12/16/17 * On Protonix Drip started 12/16/17 * Rocephin 1 gram IVPB daily (active since 12/17/17) * CT Head (12/16/17): no definite acute intracranial abnormality. (further findings per report) 2) Acute Renal Failure * Nephrology (Dr. Keen) on consult for further recommendations * Unclear if renal failure is reflection of patient's suspected bleeding, or hepatorenal syndrome given liver cirrhosis * Baseline Creatine: 0.6 (09/10/16) * Monitor urine output 3) B/l lower leg swelling * Likely secondary to decompensated liver cirrhosis and elevated INR * Will obtain venous doppler b/l lower extremities and echocardiogram when patient is more stable 4) Hyperkalemia * Given in the ED, given Calcium gluconate 1amp, 1 amp D50, 10 units of Regular insulin to stabilize the potassium; Patient given additional Kayaexlate overnight. Potassium improved and now has normalized * EKG In the ED: ST depression V4 and V5 (not official read). W 5) Prophylactic Measure * Chemical anticoagulation secondary to likely varcieal bleeding given severe anemia and thrombocytopenia * Protonix Drip * Octreotide Drip Objective - Vital Signs/Intake and Output Vital Signs (last 24 hours): Temp Pulse Resp BP Pulse Ox 978.2 F H 65 18 104/56 L 99 12/18/17 09:21 12/18/17 10:00 12/18/17 10:00 12/18/17 10:00 12/18/17 10:00 Intake and Output: 12/18/17 12/18/17 06:59 18:59 Intake Total 1085 75 Output Total 985 40 Balance 100 35 - Medications Medications: Current Medications Furosemide (Lasix) 20 mg IVP Q12 [facility] Last Admin: 12/17/17 22:20 Dose: 20 mg Octreotide Acetate 1,250 mcg/ (Dextrose) 252.5 mls @ 5.05 mls/hr SC .Q24H [facility] PRN Reason: 25 MCG/HR Last Admin: 12/17/17 19:10 Dose: Not Given Pantoprazole Sodium 80 mg/ (Sodium Chloride) 100 mls @ 10 mls/hr IVPB .Q10H [facility] PRN Reason: 8 MG/HR Last Admin: 12/18/17 09:51 Dose: 10 mls/hr Ceftriaxone Sodium (Rocephin Iv 1 Gm Duplex) 50 mls @ 100 mls/hr IVPB DAILY [facility] Last Admin: 12/18/17 09:44 Dose: 100 mls/hr Lactulose (Enulose) 20 gm PO BID [facility] Last Admin: 12/18/17 09:43 Dose: Not Given Vitamin A (Vitamin A & D Oint Ud Foilpak) 1 ea TOP BID [facility] Last Admin: 12/18/17 09:42 Dose: 1 ea - Labs Labs: 12/18/17 06:43 12/18/17 06:43 PT 21.5 SECONDS (9.7-12.2) H 12/18/17 06:43 INR 1.9 12/18/17 06:43 APTT 30 SECONDS (21-34) 12/16/17 18:59
--- NOTE | 2017-12-18 10:48 | CP.CCUPN ---
CCU Subjective - Physician Review Events Since Last Encounter (Free Text): 12/18/17 10:46 32-year-old male with a history of advanced liver disease, or chronic liver disease, portal hypertension, complicated with variceal bleeding, and also ascites and anasarca. Patient hospitalized with acute severe low hemoglobin, metabolic encephalopathy. Renal failure Patient received blood transfusion. FFP. Vitamin K. 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 O/E: pt lethargic but protecting airway opening eyes for deep stimuli chest good air entry regular hs abd soft and distension lethargic edema generalised labs noted severe anemia coagulopathy CXR clear blood in the mouth old endo reviewed showing grade 3 varices near normal LFT and possible exausted liver a/p: pt with advanced liver disease, portal gastropathy, varices, anasarca anemia and renal failure high ammonia and encepalopathy. poor prognosis high mortality GI eval FFP, PRBC, octreotide,protonix drip supportive care changes: received ffp and blood vk lactulose will continue Patient receivingBlood transfusion now. Patient will be getting endoscopy possibly today. Continue Protonix, octreotide drip CCU Objective - Vital Signs / Intake & Output Vital Signs (Last 4 hours): Vital Signs Temp Pulse Resp BP Pulse Ox 12/18/17 10:39 98 F 61 18 104/56 L 12/18/17 10:00 65 18 104/56 L 99 12/18/17 09:56 65 19 104/56 L 98 12/18/17 09:41 66 19 95/48 L 99 12/18/17 09:21 978.2 F H 62 18 96/48 L 12/18/17 09:00 67 18 98/46 L 99 12/18/17 08:51 98.1 F 63 18 91/54 L 12/18/17 08:36 98 F 61 10 L 100/46 L 12/18/17 08:21 98.2 F 62 18 103/46 L 12/18/17 08:00 98.2 F 65 19 101/48 L 99 12/18/17 07:00 64 18 101/48 L 99 12/18/17 06:52 101/48 L Intake and Output (Last 8hrs): Intake & Output 12/17/17 12/18/17 12/18/17 22:59 06:59 14:59 Intake Total 1395 375 400 Output Total 305 845 40 Balance 1090 -470 360 Weight 150 lb 2 oz Intake: Intake, IV Amount 445 135 75 Left External Jugular 375 Right External Jugular 40 45 25 Right Hand 30 80 40 Right Wrist 10 10 Oral 200 240 Blood Product 650 325 Red Blood Cells Cp2d As3 325 Lr Unit [id number] Red Blood Cells Cp2d As3 325 Lr Unit [id number] Red Blood Cells Cpd As1 325 Lr Unit [id number] Other 100 Red Blood Cells Cp2d As3 100 Lr Unit [id number] Output: Urine 305 845 40 Urethral (Zamarripa) 305 845 40 Other: # Bowel Movements 0 0 - Medications Active Medications: Active Medications Generic Name Dose Route Start Last Admin Trade Name Freq PRN Reason Stop Dose Admin Furosemide 20 mg 12/16/17 22:00 12/17/17 22:20 Lasix IVP 20 mg Q12 RUPINDER Administration Octreotide Acetate 1,250 mcg/ 252.5 mls @ 5.05 mls/hr 12/16/17 19:00 19:10 Dextrose SC Not Given .Q24H RUPINDER 25 MCG/HR Pantoprazole Sodium 80 mg/ 100 mls @ 10 mls/hr 12/16/17 19:00 12/18/17 09:51 Sodium Chloride IVPB 10 mls/hr .Q10H RUPINDER Administration 8 MG/HR Ceftriaxone Sodium 50 mls @ 100 mls/hr 12/17/17 13:30 12/18/17 09:44 Rocephin Iv 1 Gm Duplex IVPB 100 mls/hr DAILY RUPINDER Administration Lactulose 20 gm 12/17/17 10:45 12/18/17 09:43 Enulose PO Not Given BID RUPINDER Vitamin A 1 ea 12/18/17 10:00 12/18/17 09:42 Vitamin A & D Oint Ud Foilpak TOP 1 ea BID RUPINDER Administration - Patient Studies Lab Studies: Microbiology Studies 12/16/17 21:00 MRSA Culture (Admit) - Final Naris MRSA NOT DETECTED Lab Studies 12/18/17 12/18/17 12/18/17 Range/Units 06:43 06:43 06:43 WBC (4.8-10.8) K/uL RBC (4.40-5.90) Mil/uL Hgb (12.0-18.0) g/dL Hct (35.0-51.0) % MCV (80.0-94.0) fL MCH (27.0-31.0) pg MCHC (33.0-37.0) g/dL RDW (11.5-14.5) % Plt Count (130-400) K/uL MPV (7.2-11.7) fL Neut % (Auto) (50.0-75.0) % Lymph % (Auto) (20.0-40.0) % [place] % (Auto) (0.0-10.0) % Eos % (Auto) (0.0-4.0) % Baso % (Auto) (0.0-2.0) % Neut # (Auto) (1.8-7.0) K/uL Lymph # (Auto) (1.0-4.3) K/uL [place] # (Auto) (0.0-0.8) K/uL Eos # (Auto) (0.0-0.7) K/uL Baso # (Auto) (0.0-0.2) K/uL PT 21.5 H (9.7-12.2) SECONDS INR 1.9 Sodium 132 (132-148) mmol/L Potassium 4.8 (3.6-5.2) mmol/L Chloride 106 (98-107) mmol/L Carbon Dioxide 14 L (22-30) mmol/L Anion Gap 17 (10-20) BUN 53 H (9-20) mg/dL Creatinine 3.1 H (0.8-1.5) mg/dL Est GFR ( Amer) 28 Est GFR (Non-Af Amer) 23 Random Glucose 99 (75-110) mg/dL Lactic Acid 1.0 (0.7-2.1) mmol/L Calcium 8.3 L (8.6-10.4) mg/dl Total Bilirubin 6.9 H (0.2-1.3) mg/dL AST 59 D (17-59) U/L ALT 35 (21-72) U/L Alkaline Phosphatase 40 (38-126) U/L Total Protein 7.0 (6.3-8.3) g/dL Albumin 2.6 L (3.5-5.0) g/dL Globulin 4.4 H (2.2-3.9) gm/dL Albumin/Globulin Ratio 0.6 L (1.0-2.1) Ur Random Creatinine mg/dL U Random Total Protein (0.0-12.0) mg/dL Ur Random Sodium mmol/L Ur Random Urea Nitrogn mg/dL Urine Microalbumin (0.0-16.6) mg/L Blood Type Antibody Screen 12/18/17 12/18/17 12/17/17 Range/Units 06:43 06:43 19:45 WBC 3.4 L (4.8-10.8) K/uL RBC 2.13 L (4.40-5.90) Mil/uL Hgb 6.0 L* (12.0-18.0) g/dL Hct 17.6 L (35.0-51.0) % MCV 82.6 (80.0-94.0) fL MCH 28.1 (27.0-31.0) pg MCHC 34.0 (33.0-37.0) g/dL RDW 16.6 H (11.5-14.5) % Plt Count 43 L (130-400) K/uL MPV 10.7 (7.2-11.7) fL Neut % (Auto) 62.0 (50.0-75.0) % Lymph % (Auto) 18.0 L (20.0-40.0) % [place] % (Auto) 13.0 H (0.0-10.0) % Eos % (Auto) 7.0 H (0.0-4.0) % Baso % (Auto) 0.0 (0.0-2.0) % Neut # (Auto) 2.1 (1.8-7.0) K/uL Lymph # (Auto) 0.6 L (1.0-4.3) K/uL [place] # (Auto) 0.4 (0.0-0.8) K/uL Eos # (Auto) 0.2 (0.0-0.7) K/uL Baso # (Auto) 0.0 (0.0-0.2) K/uL PT 20.9 H (9.7-12.2) SECONDS INR 1.8 Sodium (132-148) mmol/L Potassium (3.6-5.2) mmol/L Chloride (98-107) mmol/L Carbon Dioxide (22-30) mmol/L Anion Gap (10-20) BUN (9-20) mg/dL Creatinine (0.8-1.5) mg/dL Est GFR ( Amer) Est GFR (Non-Af Amer) Random Glucose (75-110) mg/dL Lactic Acid (0.7-2.1) mmol/L Calcium (8.6-10.4) mg/dl Total Bilirubin (0.2-1.3) mg/dL AST (17-59) U/L ALT (21-72) U/L Alkaline Phosphatase (38-126) U/L Total Protein (6.3-8.3) g/dL Albumin (3.5-5.0) g/dL Globulin (2.2-3.9) gm/dL Albumin/Globulin Ratio (1.0-2.1) Ur Random Creatinine 60.4 mg/dL U Random Total Protein (0.0-12.0) mg/dL Ur Random Sodium 81 mmol/L Ur Random Urea Nitrogn 277 mg/dL Urine Microalbumin (0.0-16.6) mg/L Blood Type Antibody Screen 12/17/17 12/17/17 12/17/17 Range/Units 16:56 16:44 16:44 WBC 4.3 L (4.8-10.8) K/uL RBC 1.93 L (4.40-5.90) Mil/uL Hgb 5.4 L* (12.0-18.0) g/dL Hct 16.1 L (35.0-51.0) % MCV 83.3 (80.0-94.0) fL MCH 28.0 (27.0-31.0) pg MCHC 33.6 (33.0-37.0) g/dL RDW 16.3 H (11.5-14.5) % Plt Count 53 L (130-400) K/uL MPV 10.4 (7.2-11.7) fL Neut % (Auto) (50.0-75.0) % Lymph % (Auto) (20.0-40.0) % [place] % (Auto) (0.0-10.0) % Eos % (Auto) (0.0-4.0) % Baso % (Auto) (0.0-2.0) % Neut # (Auto) (1.8-7.0) K/uL Lymph # (Auto) (1.0-4.3) K/uL [place] # (Auto) (0.0-0.8) K/uL Eos # (Auto) (0.0-0.7) K/uL Baso # (Auto) (0.0-0.2) K/uL PT (9.7-12.2) SECONDS INR Sodium (132-148) mmol/L Potassium (3.6-5.2) mmol/L Chloride (98-107) mmol/L Carbon Dioxide (22-30) mmol/L Anion Gap (10-20) BUN (9-20) mg/dL Creatinine (0.8-1.5) mg/dL Est GFR ( Amer) Est GFR (Non-Af Amer) Random Glucose (75-110) mg/dL Lactic Acid (0.7-2.1) mmol/L Calcium (8.6-10.4) mg/dl Total Bilirubin (0.2-1.3) mg/dL AST (17-59) U/L ALT (21-72) U/L Alkaline Phosphatase (38-126) U/L Total Protein (6.3-8.3) g/dL Albumin (3.5-5.0) g/dL Globulin (2.2-3.9) gm/dL Albumin/Globulin Ratio (1.0-2.1) Ur Random Creatinine 103.1 mg/dL U Random Total Protein 23.0 H (0.0-12.0) mg/dL Ur Random Sodium mmol/L Ur Random Urea Nitrogn mg/dL Urine Microalbumin (0.0-16.6) mg/L Blood Type Antibody Screen 12/17/17 12/16/17 Range/Units 16:44 18:11 WBC (4.8-10.8) K/uL RBC (4.40-5.90) Mil/uL Hgb (12.0-18.0) g/dL Hct (35.0-51.0) % MCV (80.0-94.0) fL MCH (27.0-31.0) pg MCHC (33.0-37.0) g/dL RDW (11.5-14.5) % Plt Count (130-400) K/uL MPV (7.2-11.7) fL Neut % (Auto) (50.0-75.0) % Lymph % (Auto) (20.0-40.0) % [place] % (Auto) (0.0-10.0) % Eos % (Auto) (0.0-4.0) % Baso % (Auto) (0.0-2.0) % Neut # (Auto) (1.8-7.0) K/uL Lymph # (Auto) (1.0-4.3) K/uL [place] # (Auto) (0.0-0.8) K/uL Eos # (Auto) (0.0-0.7) K/uL Baso # (Auto) (0.0-0.2) K/uL PT (9.7-12.2) SECONDS INR Sodium (132-148) mmol/L Potassium (3.6-5.2) mmol/L Chloride (98-107) mmol/L Carbon Dioxide (22-30) mmol/L Anion Gap (10-20) BUN (9-20) mg/dL Creatinine (0.8-1.5) mg/dL Est GFR ( Amer) Est GFR (Non-Af Amer) Random Glucose (75-110) mg/dL Lactic Acid (0.7-2.1) mmol/L Calcium (8.6-10.4) mg/dl Total Bilirubin (0.2-1.3) mg/dL AST (17-59) U/L ALT (21-72) U/L Alkaline Phosphatase (38-126) U/L Total Protein (6.3-8.3) g/dL Albumin (3.5-5.0) g/dL Globulin (2.2-3.9) gm/dL Albumin/Globulin Ratio (1.0-2.1) Ur Random Creatinine mg/dL U Random Total Protein (0.0-12.0) mg/dL Ur Random Sodium mmol/L Ur Random Urea Nitrogn mg/dL Urine Microalbumin 58.9 H (0.0-16.6) mg/L Blood Type A POSITIVE Antibody Screen Negative Laboratory Results - last 24 hr 12/16/17 12/17/17 12/17/17 18:11 16:44 16:44 WBC RBC Hgb Hct MCV MCH MCHC RDW Plt Count MPV Neut % (Auto) Lymph % (Auto) [place] % (Auto) Eos % (Auto) Baso % (Auto) Neut # (Auto) Lymph # (Auto) [place] # (Auto) Eos # (Auto) Baso # (Auto) PT INR Sodium Potassium Chloride Carbon Dioxide Anion Gap BUN Creatinine Est GFR ( Amer) Est GFR (Non-Af Amer) Random Glucose Lactic Acid Calcium Total Bilirubin AST ALT Alkaline Phosphatase Total Protein Albumin Globulin Albumin/Globulin Ratio Ur Random Creatinine 103.1 U Random Total Protein Ur Random Sodium Ur Random Urea Nitrogn Urine Microalbumin 58.9 H Blood Type A POSITIVE Antibody Screen Negative 12/17/17 12/17/17 12/17/17 16:44 16:56 19:45 WBC 4.3 L RBC 1.93 L Hgb 5.4 L* Hct 16.1 L MCV 83.3 MCH 28.0 MCHC 33.6 RDW 16.3 H Plt Count 53 L MPV 10.4 Neut % (Auto) Lymph % (Auto) [place] % (Auto) Eos % (Auto) Baso % (Auto) Neut # (Auto) Lymph # (Auto) [place] # (Auto) Eos # (Auto) Baso # (Auto) PT 20.9 H INR 1.8 Sodium Potassium Chloride Carbon Dioxide Anion Gap BUN Creatinine Est GFR ( Amer) Est GFR (Non-Af Amer) Random Glucose Lactic Acid Calcium Total Bilirubin AST ALT Alkaline Phosphatase Total Protein Albumin Globulin Albumin/Globulin Ratio Ur Random Creatinine U Random Total Protein 23.0 H Ur Random Sodium Ur Random Urea Nitrogn Urine Microalbumin Blood Type Antibody Screen 12/18/17 12/18/17 12/18/17 06:43 06:43 06:43 WBC 3.4 L RBC 2.13 L Hgb 6.0 L* Hct 17.6 L MCV 82.6 MCH 28.1 MCHC 34.0 RDW 16.6 H Plt Count 43 L MPV 10.7 Neut % (Auto) 62.0 Lymph % (Auto) 18.0 L [place] % (Auto) 13.0 H Eos % (Auto) 7.0 H Baso % (Auto) 0.0 Neut # (Auto) 2.1 Lymph # (Auto) 0.6 L [place] # (Auto) 0.4 Eos # (Auto) 0.2 Baso # (Auto) 0.0 PT 21.5 H INR 1.9 Sodium Potassium Chloride Carbon Dioxide Anion Gap BUN Creatinine Est GFR ( Amer) Est GFR (Non-Af Amer) Random Glucose Lactic Acid Calcium Total Bilirubin AST ALT Alkaline Phosphatase Total Protein Albumin Globulin Albumin/Globulin Ratio Ur Random Creatinine 60.4 U Random Total Protein Ur Random Sodium 81 Ur Random Urea Nitrogn 277 Urine Microalbumin Blood Type Antibody Screen 12/18/17 12/18/17 06:43 06:43 WBC RBC Hgb Hct MCV MCH MCHC RDW Plt Count MPV Neut % (Auto) Lymph % (Auto) [place] % (Auto) Eos % (Auto) Baso % (Auto) Neut # (Auto) Lymph # (Auto) [place] # (Auto) Eos # (Auto) Baso # (Auto) PT INR Sodium 132 Potassium 4.8 Chloride 106 Carbon Dioxide 14 L Anion Gap 17 BUN 53 H Creatinine 3.1 H Est GFR ( Amer) 28 Est GFR (Non-Af Amer) 23 Random Glucose 99 Lactic Acid 1.0 Calcium 8.3 L Total Bilirubin 6.9 H AST 59 D ALT 35 Alkaline Phosphatase 40 Total Protein 7.0 Albumin 2.6 L Globulin 4.4 H Albumin/Globulin Ratio 0.6 L Ur Random Creatinine U Random Total Protein Ur Random Sodium Ur Random Urea Nitrogn Urine Microalbumin Blood Type Antibody Screen Critical Care Progress Note - Nutrition Nutrition: Nutrition Category Date Time Status NPO Diet [DIET] Diets 12/18/17 Breakfast Active
--- NOTE | 2017-12-18 11:45 | US ---
HISTORY: r/o ascities, r/o portal vein thrombus, eval liver COMPARISON: None. TECHNIQUE: Sonographic evaluation of the abdomen. FINDINGS: LIVER: Measures 16.4 cm. Diffusely increased echogenicity of the liver parenchyma. Consistent with fatty infiltration. No mass. No biliary ductal dilatation. Nodular contour. Consistent with hepatic cirrhosis. Hepatofugal portal venous flow is demonstrated consistent with severe portal hypertension. There is no evidence of portal venous thrombosis. Three normal hepatic veins are demonstrated without evidence of thrombosis. The inferior vena cava is unremarkable in appearance. GALLBLADDER: No evidence of cholelithiasis. Mild nonspecific thickening of the gallbladder wall to 4 mm. This may be due to lack of adequate distention or due to hepatic cellular disease. COMMON BILE DUCT: Measures 4 mm. No stones. No dilatation. PANCREAS: Unremarkable as visualized. No mass. No ductal dilatation. RIGHT KIDNEY: Measures 11.4cm. Normal echogenicity. No calculus, mass, or hydronephrosis. LEFT KIDNEY: Measures 11.9cm. Normal echogenicity. No calculus, mass, or hydronephrosis. SPLEEN: Marked splenomegaly. The spleen measures 21.0 cm in length. There is no splenic mass identified. AORTA: No aneurysmal dilatation. IVC: Unremarkable. OTHER FINDINGS: There is extensive ascites. IMPRESSION: Ascites. Hepatic cirrhosis. Reversal of normal flow direction in portal vein. No evidence of portal venous thrombosis. Mildly thickened gallbladder wall, nonspecific. Marked splenomegaly. Preliminary interpretation of this examination was reported by [facility] at 12:40 p.m. on 12/17/2017. There is concurrence of this report with the preliminary interpretation.
[2017-12-18] MEDS ORDERED: Midazolam 2 MG/2 ML VIAL ONE (13:44)
[2017-12-18] MEDS ORDERED: Propofol 10 mg/ml Inj (20 ML) ONE (13:44)
[2017-12-18] MEDS ORDERED: Albumin Human 5% (12.5 gm/250 ml) IV SCH (14:45)
[2017-12-18] MEDS: Octreotide 1,250 MCG in Dextrose 5% In Water 250 ML SC SCH (18:25)
[2017-12-18 19:24] LABS: CREATININE, RANDOM URINE 72.1 mg/dL
[2017-12-18 22:29] LABS: URINE BILIRUBIN NEGATIVE (NEGATIVE); URINE BLOOD 3+ (NEGATIVE); URINE CLARITY Clear (Clear); URINE COLOR Yellow (YELLOW); URINE GLUCOSE (UA) NORMAL (Normal); URINE LEUKOCYTE ESTERASE TRACE Leu/uL (Negative); URINE NITRATE NEGATIVE (NEGATIVE); URINE PROTEIN NEGATIVE (NEGATIVE); URINE UROBILINOGEN NORMAL mg/dL (0.2-1.0)
[2017-12-18 22:52] LABS: EOS # 0.2 K/uL (0.0-0.7); MEAN CORPUSCULAR HEMOGLOBIN 28.4 pg (27.0-31.0)
[2017-12-18 23:03] LABS: BASO # 0.1 K/uL (0.0-0.2); BASO % 1.8 % (0.0-2.0); EOS % 7.3 % (0.0-4.0); LYMPH # 0.6 K/uL (1.0-4.3); LYMPH % 19.7 % (20.0-40.0); MEAN CORPUSCULAR HGB CONC 33.8 g/dL (33.0-37.0); MEAN PLATELET VOLUME 10.5 fL (7.2-11.7); MONO # 0.4 K/uL (0.0-0.8); MONO % 13.3 % (0.0-10.0); NEUT # 1.7 K/uL (1.8-7.0); NEUT % 57.9 % (50.0-75.0); NRBC % 2.2 % (0.0-2.0); RBC 2.48 Mil/uL (4.40-5.90); RED CELL DISTRIBUTION WIDTH 16.5 % (11.5-14.5)
[2017-12-19] MEDS: Morphine 4 MG/ML VIAL IV PRN ×4 (01:15→20:45)
--- NOTE | 2017-12-19 02:47 | CON ---
DATE: 12/18/2017 LOCATION: [facility]. NEPHROLOGY CONSULTATION HISTORY OF PRESENT ILLNESS: The patient is a 32-year-old male with past medical history of esophageal varices, portal hypertension, alcohol abuse, brought to ED due to being found unresponsive; patient found to be severely anemic with hemoglobin of 1.0 g and markedly hypotensive with diastolic blood pressures in the 20s. Nephrology is being consulted for acute renal failure. History is difficult to obtain from the patient who says that he simply has been having back pain and started taking naproxen, of which he took only 1 tablet; per chart, the patient was arousable during initial encounter in ED and would open his eyes in response to his name, but was nonverbal at the time of presentation. The patient initially presented 2 days ago; since then he has received an abundance of blood products including 7 units PRBC and 2 FFPs; hemoglobin has increased gradually from 1.8 to 6.0 g this morning. PAST MEDICAL HISTORY: As above. SOCIAL HISTORY: The patient reportedly is current drinker, but unclear how much he drinks. FAMILY HISTORY: Mother due to stroke. REVIEW OF SYSTEMS: CONSTITUTIONAL: , limited as patient is a poor historian. CARDIOVASCULAR: Denies chest pain. GASTROINTESTINAL: No nausea, vomiting, or diarrhea. GENITOURINARY: Denies any change in urination. MUSCULOSKELETAL: Reporting chronic back pain; further details unclear. HEMATOLOGIC: Denies any bleeding. NEURO: Denies any numbness in his feet. PHYSICAL EXAMINATION VITAL SIGNS: This afternoon, blood pressure 109/57, heart rate 77, respirations 16, temperature 98.0, and O2 saturation 100% on room air. GENERAL: No distress, conversing coherently in full sentences. HEENT: Scleral icterus present, otherwise moist mucous membranes. NECK: No cervical lymphadenopathy. RESPIRATORY: Lungs clear to auscultation bilaterally. No rales, no rhonchi, no wheezes. CARDIOVASCULAR: Heart sounds S1, S2 normal. No murmurs, no gallops, no rubs. GASTROINTESTINAL: Abdomen soft, mildly distended, no tenderness. GENITOURINARY: Zamarripa in place. No tenderness over bladder. EXTREMITIES: 3+ bilateral lower leg edema. SKIN: Warm. No cyanosis. NEUROLOGIC: No asterixis. PSYCHIATRIC: Not agitated. Normal mood. LABORATORY DATA: This morning CBC, WBC 3.4, hemoglobin 6.0, hematocrit 17.6, platelets 43. Chemistry panel, sodium 132, potassium 4.8, chloride 106, bicarb 14, BUN 53, creatinine 3.1, calcium 8.3. T-bili 6.9, AST 59, ALT 35 . Albumin 2.6. Lactic acid 1.0. Urine studies, this morning urine sodium 81, urine protein 23 mg/dL, urine creatinine 60.4 mg/dL. IMAGING: Chest x-ray directly visualized from presentation not showing any significant pulmonary vascular congestion. ASSESSMENT AND PLAN: 1. Acute renal failure in the setting of marked hypotension with severe anemia and with the patient currently nonoliguric, most likely etiology of acute kidney injury is acute tubular necrosis due to ischemia; there is concern for hepatorenal syndrome; however, urine output has been reassuring in this regard; nevertheless we should check urine sodium with patient being off of Lasix for the last 12 plus hours; if urine sodium is low, then we should continue aggressive volume repletion with IV albumin 1 g/kg over 24 hours; however, if urine sodium is elevated as would be the case with acute tubular necrosis, we should avoid aggressive volume repletion in order to avoid pulmonary vascular congestion and volume overload. 2. Metabolic acidosis, previous anion gap acidosis has changed to the non anion gap acidosis, which likely reflects lactic acidosis having resolved; current acidosis due to advanced renal insufficiency; should continue to monitor blood gas and give bicarbonate replenishment if pH less than 7.20. 3. Hyperkalemia, currently resolved, was seen in the setting of severe volume depletion. Continue to monitor. 4. Hyponatremia, relatively mild, likely due to some element of volume depletion as well as tubular dysfunction, should improve as volume status improves. 5. Portal hypertension is likely contributing to severe bilateral lower leg edema; agree with stopping diuretics as this edema will take time to resolve and the patient is still likely somewhat intravascularly volume depleted. Thank you for this referral. We will be following closely. Osbaldo Ren MD
[2017-12-19 06:35] LABS: BASO # 0.1 K/uL (0.0-0.2); BASO % 2.2 % (0.0-2.0); EOS # 0.3 K/uL (0.0-0.7); EOS % 9.4 % (0.0-4.0); LYMPH # 0.6 K/uL (1.0-4.3); LYMPH % 20.6 % (20.0-40.0); MEAN CORPUSCULAR HEMOGLOBIN 28.5 pg (27.0-31.0); MEAN CORPUSCULAR HGB CONC 33.5 g/dL (33.0-37.0); MONO # 0.4 K/uL (0.0-0.8); MONO % 13.5 % (0.0-10.0); NEUT # 1.5 K/uL (1.8-7.0); NEUT % 54.3 % (50.0-75.0); NRBC % 1.7 % (0.0-2.0); PROTHROMBIN TIME 23.3 SECONDS (9.7-12.2); RBC 2.29 Mil/uL (4.40-5.90); RED CELL DISTRIBUTION WIDTH 16.4 % (11.5-14.5); WHITE BLOOD COUNT 2.8 K/uL (4.8-10.8)
[2017-12-19 06:44] LABS: ALB/GLOB RATIO 0.6 (1.0-2.1); ALBUMIN 2.3 g/dL (3.5-5.0); CALCIUM 6.5 mg/dl (8.6-10.4); HEMOGLOBIN 6.5 g/dL (12.0-18.0); MAGNESIUM 1.5 mg/dL (1.6-2.3)
--- NOTE | 2017-12-19 07:03 | CP.PCM.PN ---
<Tripp Lawrence - Last Filed: 12/19/17 08:45> Subjective - Date & Time of Evaluation Date of Evaluation: 12/19/17 Time of Evaluation: 06:00 - Subjective Subjective: GI Progress note: Pt seen and examined at bedside. No acute events overnight. Pt states that his mouth is very dry but with no other complaints. S/p EGD yesterday. Pt denies any abdominal pain, nausea, vomiting, or diarrhea. No other complaints. 12 Point ROS performed and negative other than stated above. Objective - Vital Signs/Intake and Output Vital Signs (last 24 hours): Temp Pulse Resp BP Pulse Ox 98.6 F 67 16 114/61 100 12/19/17 05:00 12/19/17 06:03 12/19/17 06:03 12/19/17 06:03 12/19/17 06:03 Intake and Output: 12/19/17 12/19/17 06:59 18:59 Intake Total 565 Output Total 862 Balance -297 - Medications Medications: Current Medications Octreotide Acetate 1,250 mcg/ (Dextrose) 252.5 mls @ 5.05 mls/hr SC .Q24H RUPINDER PRN Reason: 25 MCG/HR Last Admin: 12/18/17 18:25 Dose: Not Given Ceftriaxone Sodium (Rocephin Iv 1 Gm Duplex) 50 mls @ 100 mls/hr IVPB DAILY [facility] Last Admin: 12/18/17 09:44 Dose: 100 mls/hr Albumin Human (Albutein 5% 500 Ml) 500 mls @ 166.667 mls/hr IVPB Q8H [facility] Stop: 12/21/17 10:59 Last Admin: 12/19/17 00:09 Dose: 166.667 mls/hr Lactulose (Enulose) 20 gm PO BID RUPINDER Last Admin: 12/18/17 17:32 Dose: Not Given Morphine Sulfate (Morphine) 2 mg IV Q3 PRN PRN Reason: Pain, moderate (4-7) Last Admin: 12/19/17 01:15 Dose: 2 mg Pantoprazole Sodium (Protonix Inj) 40 mg IV ACB RUPINDER Vitamin A (Vitamin A & D Oint Ud Foilpak) 1 ea TOP BID [facility] Last Admin: 12/18/17 17:35 Dose: 1 ea - Labs Labs: 12/19/17 06:11 12/19/17 06:11 PT 23.3 SECONDS (9.7-12.2) H 12/19/17 06:11 INR 2.0 12/19/17 06:11 APTT 30 SECONDS (21-34) 12/16/17 18:59 - Constitutional Appears: No Acute Distress - Head Exam Head Exam: ATRAUMATIC - Eye Exam Eye Exam: EOMI - ENT Exam ENT Exam: Mucous Membranes Moist - Respiratory Exam Respiratory Exam: Clear to Ausculation Bilateral. absent: Rales, Wheezes - Cardiovascular Exam Cardiovascular Exam: REGULAR RHYTHM, +S1, +S2 - GI/Abdominal Exam GI & Abdominal Exam: Distended, Normal Bowel Sounds. absent: Guarding, Tenderness, Organomegaly Additional comments: Mod distension, non tender - Extremities Exam Extremities Exam: absent: Calf Tenderness - Neurological Exam Neurological Exam: Alert, Awake, Oriented x3 - Psychiatric Exam Psychiatric exam: Normal Mood - Skin Skin Exam: Dry, Intact, Warm Assessment and Plan - Assessment and Plan (Free Text) Assessment: 31yo male with PMHx significant for decompensated alcoholic cirrhosis with esophageal varices s/p banding in July 2016 who presents with altered mental status and severe normocytic anemia. s/p 6 units PRBCs. S/p EGD showing large esophageal varices w/ 5 bands placed successfully, portal hypertensive gastropathy and enlarged gastric folds. -Normocytic anemia -Decompensated alcholic cirrhosis complicated by hepatic encephalopathy, and esophageal varices -Hyperbilirubinemia -Coagulopathy of cirrhosis -Hyperkalemia - resolved -Renal Failure Plan: -Will start CLD for lunch -Albumin started yesterday 25gm Q8H totoal of 9 bottles -Anemia - S/p 6 units PRBC with goal hgb ~ 7-8, - likely from known varices, portal hypertensive gastropathy, or bone marrow suppression from chronic ETOH abuse -Plan to transfuse 1 unit prbc today -IR consulted for therapeutic paracentesis -Cont to monitor H/H -Continue Protonix 40mg IV ACB -Cont Octreotide gtt -Ceftriaxone 1g IV daily for SBP ppx -Anti-emetics PRN -Pain control -Abdominal U/S showed hepatic cirrhosis, extensive ascites, splenomegaly, no evidence of PVT, hepatofugal flow consistent with severe portal HTN -Renal failure- FENA of 1.7 - intrinsic cause, abd US of kidneys with normal limits, Cr this morning dec to 1.8 -F/u renal consult recs -MELD- NA of 27 -Cont to monitor patients clinical course Case and plan was reviewed and discussed in detail with Dr Pelaez. <Jake Pelaez Y - Last Filed: 12/19/17 09:07> Objective - Vital Signs/Intake and Output Vital Signs (last 24 hours): Temp Pulse Resp BP Pulse Ox 98.0 F 73 18 118/59 L 99 12/19/17 07:00 12/19/17 08:33 12/19/17 08:33 12/19/17 08:33 12/19/17 08:33 Intake and Output: 12/19/17 12/19/17 06:59 18:59 Intake Total 565 Output Total 862 Balance -297 - Medications Medications: Current Medications Octreotide Acetate 1,250 mcg/ (Dextrose) 252.5 mls @ 5.05 mls/hr SC .Q24H RUPINDER PRN Reason: 25 MCG/HR Last Admin: 12/18/17 18:25 Dose: Not Given Ceftriaxone Sodium (Rocephin Iv 1 Gm Duplex) 50 mls @ 100 mls/hr IVPB DAILY [facility] Last Admin: 12/18/17 09:44 Dose: 100 mls/hr Albumin Human (Albutein 5% 500 Ml) 500 mls @ 166.667 mls/hr IVPB Q8H [facility] Stop: 12/21/17 10:59 Last Admin: 12/19/17 07:54 Dose: 166.667 mls/hr Potassium Chloride (Potassium Chloride 10 Meq/100 Ml) 10 meq in 100 mls @ 100 mls/hr IVPB Q1H RUPINDER Stop: 12/19/17 09:44 Last Admin: 12/19/17 08:03 Dose: 100 mls/hr Lactulose (Enulose) 20 gm PO BID [facility] Last Admin: 12/18/17 17:32 Dose: Not Given Morphine Sulfate (Morphine) 2 mg IV Q3 PRN PRN Reason: Pain, moderate (4-7) Last Admin: 12/19/17 01:15 Dose: 2 mg Pantoprazole Sodium (Protonix Inj) 40 mg IV ACB [facility] Last Admin: 12/19/17 07:38 Dose: 40 mg Vitamin A (Vitamin A & D Oint Ud Foilpak) 1 ea TOP BID [facility] Last Admin: 12/18/17 17:35 Dose: 1 ea - Labs Labs: 12/19/17 06:11 12/19/17 06:11 PT 23.3 SECONDS (9.7-12.2) H 12/19/17 06:11 INR 2.0 12/19/17 06:11 APTT 30 SECONDS (21-34) 12/16/17 18:59 Attending/Attestation - Attestation I have personally seen and examined this patient.: Yes I have fully participated in the care of the patient.: Yes I have reviewed all pertinent clinical information, including history, physical exam and plan: Yes Notes (Text): 12/19/17 09:03 I have seen and examined patient with GI fellow and medical director occupational health. He remains in critical care, no acute events overnight. He describes abdominal distention with substernal chest pain following EGD with band ligation yesterday. He denies vomiting, fever/chills, or melena. Review of vitals from this morning are normal. ETOH decompensated cirrhosis Anemia - s/p EGD with variceal band ligation Transaminitis Abdominal distention, ascites Acute renal insufficiency - Clear liquid diet as tolerated - H/H stable, would administer 1 unit PRBC and continue to monitor - Continue with PPI and octreotide infusions - Continue with antibiotic therapy - Increase lactulose, titrate so patient is having 2-3 bowel movements daily - Continue with albumin therapy for 2 additional days, monitor creatinine and follow up renal recommendations - Diuretics on hold given renal insufficiency, would consider abdominal paracentesis given large ascites - Overall patient prognosis is guarded, will continue to monitor clinical course
[2017-12-19 07:06] LABS: COMPLEMENT C3 < 40.0 mg/dL (88.0-165.0); COMPLEMENT C4 < 8.0 mg/dL (14.0-44.0)
[2017-12-19] MEDS: Magnesium Sulfate 1 gm in D5W 1 GM/100 ML BAG IVPB SCH ×2 (08:01→08:02)
[2017-12-19] MEDS: Vitamins A & D Oint UD Foilpak TOP SCH ×2 (09:43→18:36)
[2017-12-19] MEDS: cefTRIAXone IV 1 gm in Dextros 50 ML IVPB SCH (10:40)
--- NOTE | 2017-12-19 11:30 | CP.CCUPN ---
Addendum entered and electronically signed by Blaine Molina DO 12/19/17 11: 39: Ignore Plan below, Correct plan here Heme: - continue monitoring H/H and administer 1U PRBC - consider FFP and trend platelets (63-->34 on 2/6 AM) Nephro: Acute renal failure leading to Acute tubular necrosis 2/2 ischemia - Non-AG metabolic acidosis - Rx HCO3 if pH<7.2 - Renal failure with FENa of 1.7 - Continue monitoring urine output Imaging/labs: - Abd U/S showed hepatic cirrhosis, extensive ascites, splenomegaly, no evidence of PVT, severe portal HTN - check CBC w/ differentiation - Venous dopler for R UE edema possible clot formation 2/2 hypercoagulable state - C3/C4 wnl GI: - clear liquid diet as tolerated - Octreotide 1250mcg dextrose 5% in water @ 25 mcg/hr 5.05 ml/hr IV qd - Protonix 40mg IV - repeat NH4 - Restart lactulose 20g PO BID - Hold parecentesis until platelets stabilize - Albutein 5% 500ml @ 166 ml/hr IVPD q8h PPx: - continue Abx ceftriaxone 1g IV @ 100ml/hr IVPD qd - Vit A and D ointment - Morphine 2mg IV q3 PRN Original Note: <Blaine Molina - Last Filed: 12/19/17 11:38> CCU Subjective - Physician Review Subjective (Free Text): 12/19/17 11:27 patient seen and examined at bedside less lethargic Hgb continues to drop, will replace PRBC Will continue to monitor carefully given extensive varices found on EGD CCU Objective - Vital Signs / Intake & Output Vital Signs (Last 4 hours): Vital Signs Pulse Resp BP Pulse Ox 12/19/17 10:33 74 13 118/64 100 12/19/17 10:03 78 21 118/64 100 12/19/17 10:00 74 18 100 12/19/17 09:03 74 18 115/53 L 100 12/19/17 09:00 71 18 100 12/19/17 08:33 73 18 118/59 L 99 12/19/17 08:03 70 15 113/58 L 99 12/19/17 08:00 72 16 99 12/19/17 07:33 71 15 99 Intake and Output (Last 8hrs): Intake & Output 12/18/17 12/19/17 12/19/17 22:59 06:59 14:59 Intake Total 45 540 858 Output Total 785 425 400 Balance -740 115 458 Intake: Intake, IV Amount 45 540 360 Left External Jugular 500 300 Right External Jugular 45 40 60 Oral 0 Blood Product 0 Red Blood Cells Cp2d As3 0 Lr Unit [id number] Albumin 498 Output: Urine 785 425 400 Urethral (Zamarripa) 785 425 400 - Medications Active Medications: Active Medications Generic Name Dose Route Start Last Admin Trade Name Freq PRN Reason Stop Dose Admin Ceftriaxone Sodium 50 mls @ 100 mls/hr 12/17/17 13:30 12/19/17 10:40 Rocephin Iv 1 Gm Duplex IVPB 100 mls/hr DAILY RUPINDER Administration Albumin Human 500 mls @ 166.667 mls/hr 12/18/17 16:00 12/19/17 07:54 Albutein 5% 500 Ml IVPB 12/21/17 10:59 166.667 mls/hr Q8H RUPINDER Administration Octreotide Acetate 1,250 mcg/ 252.5 mls @ 5.05 mls/hr 12/19/17 19:00 Dextrose IV .Q24H RUPINDER 25 MCG/HR Lactulose 20 gm 12/17/17 10:45 12/19/17 09:41 Enulose PO 20 gm BID RUPINDER Administration Morphine Sulfate 2 mg 12/19/17 01:03 12/19/17 09:41 Morphine IV 2 mg Q3 PRN Administration Pain, moderate (4-7) Pantoprazole Sodium 40 mg 12/19/17 07:30 12/19/17 07:38 Protonix Inj IV 40 mg ACB RUPINDER Administration Thiamine HCl 100 mg 12/19/17 11:30 Vitamin B1 Tab PO DAILY RUPINDER Vitamin A 1 ea 12/18/17 10:00 12/19/17 09:43 Vitamin A & D Oint Ud Foilpak TOP 1 ea BID RUPINDER Administration - Patient Studies Lab Studies: Microbiology Studies 12/16/17 21:00 MRSA Culture (Admit) - Final Naris MRSA NOT DETECTED Lab Studies 12/19/17 12/19/17 12/19/17 Range/Units 06:11 06:11 06:11 WBC (4.8-10.8) K/uL RBC (4.40-5.90) Mil/uL Hgb (12.0-18.0) g/dL Hct (35.0-51.0) % MCV (80.0-94.0) fL MCH (27.0-31.0) pg MCHC (33.0-37.0) g/dL RDW (11.5-14.5) % Plt Count (130-400) K/uL MPV (7.2-11.7) fL Neut % (Auto) (50.0-75.0) % Lymph % (Auto) (20.0-40.0) % Bland % (Auto) (0.0-10.0) % Eos % (Auto) (0.0-4.0) % Baso % (Auto) (0.0-2.0) % Neut # (Auto) (1.8-7.0) K/uL Lymph # (Auto) (1.0-4.3) K/uL Bland # (Auto) (0.0-0.8) K/uL Eos # (Auto) (0.0-0.7) K/uL Baso # (Auto) (0.0-0.2) K/uL Smear Path Review PT 23.3 H (9.7-12.2) SECONDS INR 2.0 Sodium 138 (132-148) mmol/L Potassium 3.6 (3.6-5.2) mmol/L Chloride 115 H (98-107) mmol/L Carbon Dioxide 13 L (22-30) mmol/L Anion Gap 13 (10-20) BUN 33 H (9-20) mg/dL Creatinine 1.8 H (0.8-1.5) mg/dL Est GFR ( Amer) 53 Est GFR (Non-Af Amer) 44 POC Glucose (mg/dL) (65-110) mg/dL Random Glucose 60 L (75-110) mg/dL Calcium 6.5 L (8.6-10.4) mg/dl Phosphorus 3.9 (2.5-4.5) mg/dL Magnesium 1.5 L (1.6-2.3) mg/dL Total Bilirubin 5.2 H (0.2-1.3) mg/dL AST 50 (17-59) U/L ALT 39 (21-72) U/L Alkaline Phosphatase 22 L D (38-126) U/L Total Protein 5.8 L (6.3-8.3) g/dL Albumin 2.3 L (3.5-5.0) g/dL Globulin 3.6 (2.2-3.9) gm/dL Albumin/Globulin Ratio 0.6 L (1.0-2.1) Alpha Fetoprotein (0.0-7.5) ng/mL Urine Color (YELLOW) Urine Clarity (Clear) Urine pH (5.0-8.0) Ur Specific [place] (1.003-1.030) Urine Protein (NEGATIVE) mg/dL Urine Glucose (UA) (Normal) mg/dL Urine Ketones (NEGATIVE) mg/dL Urine Blood (NEGATIVE) Urine Nitrate (NEGATIVE) Urine Bilirubin (NEGATIVE) Urine Urobilinogen (0.2-1.0) mg/dL Ur Leukocyte Esterase (Negative) Kiesha/uL Urine WBC (Auto) (0-5) /hpf Urine RBC (Auto) (0-3) /hpf Urine Osmolality (300-1000) mosm/kg Ur Random Creatinine mg/dL Ur Random Sodium mmol/L Complement C3 < 40.0 L (88.0-165.0) mg/dL Complement C4 < 8.0 L (14.0-44.0) mg/dL Blood Type Antibody Screen 12/19/17 12/19/17 12/18/17 Range/Units 06:11 06:11 23:52 WBC 2.8 L (4.8-10.8) K/uL RBC 2.29 L (4.40-5.90) Mil/uL Hgb 6.5 L* (12.0-18.0) g/dL Hct 19.4 L (35.0-51.0) % MCV 85.0 (80.0-94.0) fL MCH 28.5 (27.0-31.0) pg MCHC 33.5 (33.0-37.0) g/dL RDW 16.4 H (11.5-14.5) % Plt Count 34 L D (130-400) K/uL MPV 10.0 (7.2-11.7) fL Neut % (Auto) 54.3 (50.0-75.0) % Lymph % (Auto) 20.6 (20.0-40.0) % Bland % (Auto) 13.5 H (0.0-10.0) % Eos % (Auto) 9.4 H (0.0-4.0) % Baso % (Auto) 2.2 H (0.0-2.0) % Neut # (Auto) 1.5 L (1.8-7.0) K/uL Lymph # (Auto) 0.6 L (1.0-4.3) K/uL Bland # (Auto) 0.4 (0.0-0.8) K/uL Eos # (Auto) 0.3 (0.0-0.7) K/uL Baso # (Auto) 0.1 (0.0-0.2) K/uL Smear Path Review PT (9.7-12.2) SECONDS INR Sodium (132-148) mmol/L Potassium (3.6-5.2) mmol/L Chloride (98-107) mmol/L Carbon Dioxide (22-30) mmol/L Anion Gap (10-20) BUN (9-20) mg/dL Creatinine (0.8-1.5) mg/dL Est GFR ( Amer) Est GFR (Non-Af Amer) POC Glucose (mg/dL) 85 (65-110) mg/dL Random Glucose (75-110) mg/dL Calcium (8.6-10.4) mg/dl Phosphorus (2.5-4.5) mg/dL Magnesium (1.6-2.3) mg/dL Total Bilirubin (0.2-1.3) mg/dL AST (17-59) U/L ALT (21-72) U/L Alkaline Phosphatase (38-126) U/L Total Protein (6.3-8.3) g/dL Albumin (3.5-5.0) g/dL Globulin (2.2-3.9) gm/dL Albumin/Globulin Ratio (1.0-2.1) Alpha Fetoprotein 2.7 (0.0-7.5) ng/mL Urine Color (YELLOW) Urine Clarity (Clear) Urine pH (5.0-8.0) Ur Specific [place] (1.003-1.030) Urine Protein (NEGATIVE) mg/dL Urine Glucose (UA) (Normal) mg/dL Urine Ketones (NEGATIVE) mg/dL Urine Blood (NEGATIVE) Urine Nitrate (NEGATIVE) Urine Bilirubin (NEGATIVE) Urine Urobilinogen (0.2-1.0) mg/dL Ur Leukocyte Esterase (Negative) Kiesha/uL Urine WBC (Auto) (0-5) /hpf Urine RBC (Auto) (0-3) /hpf Urine Osmolality (300-1000) mosm/kg Ur Random Creatinine mg/dL Ur Random Sodium mmol/L Complement C3 (88.0-165.0) mg/dL Complement C4 (14.0-44.0) mg/dL Blood Type Antibody Screen 12/18/17 12/18/17 12/18/17 Range/Units 22:42 21:55 19:00 WBC 3.0 L (4.8-10.8) K/uL RBC 2.48 L (4.40-5.90) Mil/uL Hgb 7.0 L (12.0-18.0) g/dL Hct 20.8 L (35.0-51.0) % MCV 84.0 (80.0-94.0) fL MCH 28.4 (27.0-31.0) pg MCHC 33.8 (33.0-37.0) g/dL RDW 16.5 H (11.5-14.5) % Plt Count 63 L D (130-400) K/uL MPV 10.5 (7.2-11.7) fL Neut % (Auto) 57.9 (50.0-75.0) % Lymph % (Auto) 19.7 L (20.0-40.0) % Bland % (Auto) 13.3 H (0.0-10.0) % Eos % (Auto) 7.3 H (0.0-4.0) % Baso % (Auto) 1.8 (0.0-2.0) % Neut # (Auto) 1.7 L (1.8-7.0) K/uL Lymph # (Auto) 0.6 L (1.0-4.3) K/uL Bland # (Auto) 0.4 (0.0-0.8) K/uL Eos # (Auto) 0.2 (0.0-0.7) K/uL Baso # (Auto) 0.1 (0.0-0.2) K/uL Smear Path Review PT (9.7-12.2) SECONDS INR Sodium (132-148) mmol/L Potassium (3.6-5.2) mmol/L Chloride (98-107) mmol/L Carbon Dioxide (22-30) mmol/L Anion Gap (10-20) BUN (9-20) mg/dL Creatinine (0.8-1.5) mg/dL Est GFR ( Amer) Est GFR (Non-Af Amer) POC Glucose (mg/dL) (65-110) mg/dL Random Glucose (75-110) mg/dL Calcium (8.6-10.4) mg/dl Phosphorus (2.5-4.5) mg/dL Magnesium (1.6-2.3) mg/dL Total Bilirubin (0.2-1.3) mg/dL AST (17-59) U/L ALT (21-72) U/L Alkaline Phosphatase (38-126) U/L Total Protein (6.3-8.3) g/dL Albumin (3.5-5.0) g/dL Globulin (2.2-3.9) gm/dL Albumin/Globulin Ratio (1.0-2.1) Alpha Fetoprotein (0.0-7.5) ng/mL Urine Color Yellow (YELLOW) Urine Clarity Clear (Clear) Urine pH 5.0 (5.0-8.0) Ur Specific [place] 1.010 (1.003-1.030) Urine Protein Negative (NEGATIVE) mg/dL Urine Glucose (UA) Normal (Normal) mg/dL Urine Ketones Negative (NEGATIVE) mg/dL Urine Blood 3+ H (NEGATIVE) Urine Nitrate Negative (NEGATIVE) Urine Bilirubin Negative (NEGATIVE) Urine Urobilinogen Normal (0.2-1.0) mg/dL Ur Leukocyte Esterase Trace (Negative) Kiesha/uL Urine WBC (Auto) 24 H (0-5) /hpf Urine RBC (Auto) 567 H (0-3) /hpf Urine Osmolality 344 (300-1000) mosm/kg Ur Random Creatinine 72.1 mg/dL Ur Random Sodium 53 mmol/L Complement C3 (88.0-165.0) mg/dL Complement C4 (14.0-44.0) mg/dL Blood Type Antibody Screen 12/18/17 12/16/17 12/16/17 Range/Units 17:45 18:11 17:42 WBC (4.8-10.8) K/uL RBC (4.40-5.90) Mil/uL Hgb (12.0-18.0) g/dL Hct (35.0-51.0) % MCV (80.0-94.0) fL MCH (27.0-31.0) pg MCHC (33.0-37.0) g/dL RDW (11.5-14.5) % Plt Count (130-400) K/uL MPV (7.2-11.7) fL Neut % (Auto) (50.0-75.0) % Lymph % (Auto) (20.0-40.0) % Bland % (Auto) (0.0-10.0) % Eos % (Auto) (0.0-4.0) % Baso % (Auto) (0.0-2.0) % Neut # (Auto) (1.8-7.0) K/uL Lymph # (Auto) (1.0-4.3) K/uL Bland # (Auto) (0.0-0.8) K/uL Eos # (Auto) (0.0-0.7) K/uL Baso # (Auto) (0.0-0.2) K/uL Smear Path Review PT (9.7-12.2) SECONDS INR Sodium (132-148) mmol/L Potassium (3.6-5.2) mmol/L Chloride (98-107) mmol/L Carbon Dioxide (22-30) mmol/L Anion Gap (10-20) BUN (9-20) mg/dL Creatinine (0.8-1.5) mg/dL Est GFR ( Amer) Est GFR (Non-Af Amer) POC Glucose (mg/dL) 109 (65-110) mg/dL Random Glucose (75-110) mg/dL Calcium (8.6-10.4) mg/dl Phosphorus (2.5-4.5) mg/dL Magnesium (1.6-2.3) mg/dL Total Bilirubin (0.2-1.3) mg/dL AST (17-59) U/L ALT (21-72) U/L Alkaline Phosphatase (38-126) U/L Total Protein (6.3-8.3) g/dL Albumin (3.5-5.0) g/dL Globulin (2.2-3.9) gm/dL Albumin/Globulin Ratio (1.0-2.1) Alpha Fetoprotein (0.0-7.5) ng/mL Urine Color (YELLOW) Urine Clarity (Clear) Urine pH (5.0-8.0) Ur Specific [place] (1.003-1.030) Urine Protein (NEGATIVE) mg/dL Urine Glucose (UA) (Normal) mg/dL Urine Ketones (NEGATIVE) mg/dL Urine Blood (NEGATIVE) Urine Nitrate (NEGATIVE) Urine Bilirubin (NEGATIVE) Urine Urobilinogen (0.2-1.0) mg/dL Ur Leukocyte Esterase (Negative) Kiesha/uL Urine WBC (Auto) (0-5) /hpf Urine RBC (Auto) (0-3) /hpf Urine Osmolality (300-1000) mosm/kg Ur Random Creatinine mg/dL Ur Random Sodium mmol/L Complement C3 (88.0-165.0) mg/dL Complement C4 (14.0-44.0) mg/dL Blood Type A POSITIVE Antibody Screen Negative Laboratory Results - last 24 hr 12/16/17 12/16/17 12/18/17 17:42 18:11 17:45 WBC RBC Hgb Hct MCV MCH MCHC RDW Plt Count MPV Neut % (Auto) Lymph % (Auto) Bland % (Auto) Eos % (Auto) Baso % (Auto) Neut # (Auto) Lymph # (Auto) Bland # (Auto) Eos # (Auto) Baso # (Auto) Smear Path Review PT INR Sodium Potassium Chloride Carbon Dioxide Anion Gap BUN Creatinine Est GFR ( Amer) Est GFR (Non-Af Amer) POC Glucose (mg/dL) 109 Random Glucose Calcium Phosphorus Magnesium Total Bilirubin AST ALT Alkaline Phosphatase Total Protein Albumin Globulin Albumin/Globulin Ratio Alpha Fetoprotein Urine Color Urine Clarity Urine pH Ur Specific [place] Urine Protein Urine Glucose (UA) Urine Ketones Urine Blood Urine Nitrate Urine Bilirubin Urine Urobilinogen Ur Leukocyte Esterase Urine WBC (Auto) Urine RBC (Auto) Urine Osmolality Ur Random Creatinine Ur Random Sodium Complement C3 Complement C4 Blood Type A POSITIVE Antibody Screen Negative 12/18/17 12/18/17 12/18/17 19:00 21:55 22:42 WBC 3.0 L RBC 2.48 L Hgb 7.0 L Hct 20.8 L MCV 84.0 MCH 28.4 MCHC 33.8 RDW 16.5 H Plt Count 63 L D MPV 10.5 Neut % (Auto) 57.9 Lymph % (Auto) 19.7 L Bland % (Auto) 13.3 H Eos % (Auto) 7.3 H Baso % (Auto) 1.8 Neut # (Auto) 1.7 L Lymph # (Auto) 0.6 L Bland # (Auto) 0.4 Eos # (Auto) 0.2 Baso # (Auto) 0.1 Smear Path Review PT INR Sodium Potassium Chloride Carbon Dioxide Anion Gap BUN Creatinine Est GFR ( Amer) Est GFR (Non-Af Amer) POC Glucose (mg/dL) Random Glucose Calcium Phosphorus Magnesium Total Bilirubin AST ALT Alkaline Phosphatase Total Protein Albumin Globulin Albumin/Globulin Ratio Alpha Fetoprotein Urine Color Yellow Urine Clarity Clear Urine pH 5.0 Ur Specific [place] 1.010 Urine Protein Negative Urine Glucose (UA) Normal Urine Ketones Negative Urine Blood 3+ H Urine Nitrate Negative Urine Bilirubin Negative Urine Urobilinogen Normal Ur Leukocyte Esterase Trace Urine WBC (Auto) 24 H Urine RBC (Auto) 567 H Urine Osmolality 344 Ur Random Creatinine 72.1 Ur Random Sodium 53 Complement C3 Complement C4 Blood Type Antibody Screen 12/18/17 12/19/17 12/19/17 23:52 06:11 06:11 WBC 2.8 L RBC 2.29 L Hgb 6.5 L* Hct 19.4 L MCV 85.0 MCH 28.5 MCHC 33.5 RDW 16.4 H Plt Count 34 L D MPV 10.0 Neut % (Auto) 54.3 Lymph % (Auto) 20.6 Bland % (Auto) 13.5 H Eos % (Auto) 9.4 H Baso % (Auto) 2.2 H Neut # (Auto) 1.5 L Lymph # (Auto) 0.6 L Bland # (Auto) 0.4 Eos # (Auto) 0.3 Baso # (Auto) 0.1 Smear Path Review PT INR Sodium Potassium Chloride Carbon Dioxide Anion Gap BUN Creatinine Est GFR ( Amer) Est GFR (Non-Af Amer) POC Glucose (mg/dL) 85 Random Glucose Calcium Phosphorus Magnesium Total Bilirubin AST ALT Alkaline Phosphatase Total Protein Albumin Globulin Albumin/Globulin Ratio Alpha Fetoprotein 2.7 Urine Color Urine Clarity Urine pH Ur Specific [place] Urine Protein Urine Glucose (UA) Urine Ketones Urine Blood Urine Nitrate Urine Bilirubin Urine Urobilinogen Ur Leukocyte Esterase Urine WBC (Auto) Urine RBC (Auto) Urine Osmolality Ur Random Creatinine Ur Random Sodium Complement C3 Complement C4 Blood Type Antibody Screen 12/19/17 12/19/17 12/19/17 06:11 06:11 06:11 WBC RBC Hgb Hct MCV MCH MCHC RDW Plt Count MPV Neut % (Auto) Lymph % (Auto) Bland % (Auto) Eos % (Auto) Baso % (Auto) Neut # (Auto) Lymph # (Auto) Bland # (Auto) Eos # (Auto) Baso # (Auto) Smear Path Review PT 23.3 H INR 2.0 Sodium 138 Potassium 3.6 Chloride 115 H Carbon Dioxide 13 L Anion Gap 13 BUN 33 H Creatinine 1.8 H Est GFR ( Amer) 53 Est GFR (Non-Af Amer) 44 POC Glucose (mg/dL) Random Glucose 60 L Calcium 6.5 L Phosphorus 3.9 Magnesium 1.5 L Total Bilirubin 5.2 H AST 50 ALT 39 Alkaline Phosphatase 22 L D Total Protein 5.8 L Albumin 2.3 L Globulin 3.6 Albumin/Globulin Ratio 0.6 L Alpha Fetoprotein Urine Color Urine Clarity Urine pH Ur Specific [place] Urine Protein Urine Glucose (UA) Urine Ketones Urine Blood Urine Nitrate Urine Bilirubin Urine Urobilinogen Ur Leukocyte Esterase Urine WBC (Auto) Urine RBC (Auto) Urine Osmolality Ur Random Creatinine Ur Random Sodium Complement C3 < 40.0 L Complement C4 < 8.0 L Blood Type Antibody Screen Critical Care Progress Note - Nutrition Nutrition: Nutrition Category Date Time Status Liquid Diet [DIET] Diets 12/19/17 Lunch Active Assessment/Plan - Assessment and Plan (Free Text) Assessment: 32M Severe anemia, Extensive varices Plan: Psych: Schizophrenia - Seroquel 200mg PO BID held - Risperdal 0.25mg PO qd Neuro: Seizure disorder - Renew Keppra 500mg @ 420ml/hr IVPD q12h - Metoclopramide 10mg IVP qd - check lactate dehydrogenase and CPK to check for possible seizure activity overnight accompanying acutely increased WBC Cards: Tachycardia (persistent), HTN - Lopressor 100mg BID; 5mg IV q2h PRN given this AM - Magnesium sulfate 1g in 100ml D5W IVPB x1 - Dextrose 5%/0.9% NS 1000 ml @ 50ml/hr IV q20h x1 on 12/18 Pulm: PRVC ventilator - CXR taken this AM showed trach tube, R central venous catheter, NGT, and L PICC all in place and stable; positive for subtle patchy opacities @ medial R lower lobe - CPAP 5ps 10FiO2 40%, vent settings back to PRVC 116 tv 450 FiO2 40% p+5 (per nurse note) - O2 via Trach Collar; add T for inline suction for trach GI: Biliary emesis, constipation - Small bowel series taken at bedside with contrast; no leaks/extravasation - NGT replaced after pt removed - TPN - Feeding to resume at 10cc/hr - Dulcolax 10mg IN q24h Renal: UTI (g+ cocci in urine 12/04) - Cefepime 1g in 5% dextrose water @ 100ml/hr IVPD qd - Linezolid 600mg in D5W 300ml PPx: - Drisdol 50,000 IU 1cap PO qwk - VitC 500mg tab PO qd - Multivitamin: 5ml PO qd - Heparin 5000 U SC q8 - Protonix 20mg IVP BID <Diomedes Joyce S - Last Filed: 12/19/17 18:38> CCU Objective - Vital Signs / Intake & Output Vital Signs (Last 4 hours): Vital Signs Temp Pulse Resp BP Pulse Ox 12/19/17 18:22 122/67 12/19/17 18:00 79 20 100 12/19/17 17:57 122/67 12/19/17 17:00 74 13 100 12/19/17 16:57 74 14 114/63 100 12/19/17 16:00 76 20 100 12/19/17 15:57 74 15 123/67 100 12/19/17 15:27 123/64 12/19/17 15:26 78 18 100 12/19/17 15:00 97.9 F 72 17 100 Intake and Output (Last 8hrs): Intake & Output 12/19/17 12/19/17 12/19/17 06:59 14:59 22:59 Intake Total 540 1759 352 Output Total 425 1000 575 Balance 115 759 -223 Intake: Intake, IV Amount 540 470 20 Left External Jugular 500 300 Right External Jugular 40 170 20 Oral 236 Blood Product 555 Red Blood Cells Cp2d As3 325 Lr Unit [id number] Albumin 498 332 Output: Urine 425 1000 575 Urethral (Zamarripa) 425 1000 575 - Medications Active Medications: Active Medications Generic Name Dose Route Start Last Admin Trade Name Freq PRN Reason Stop Dose Admin Calcium Carbonate 1,000 mg 12/19/17 18:15 Tums PO BID RUPINDER Ceftriaxone Sodium 50 mls @ 100 mls/hr 12/17/17 13:30 12/19/17 10:40 Rocephin Iv 1 Gm Duplex IVPB 100 mls/hr DAILY RUPINDER Administration Octreotide Acetate 1,250 mcg/ 252.5 mls @ 5.05 mls/hr 12/19/17 19:00 Dextrose IV .Q24H RUPINDER 25 MCG/HR Lactulose 20 gm 12/17/17 10:45 12/19/17 18:22 Enulose PO 20 gm BID RUPINDER Administration Morphine Sulfate 2 mg 12/19/17 01:03 12/19/17 16:27 Morphine IV 2 mg Q3 PRN Administration Pain, moderate (4-7) Pantoprazole Sodium 40 mg 12/19/17 07:30 12/19/17 07:38 Protonix Inj IV 40 mg ACB RUPINDER Administration Spironolactone 25 mg 12/19/17 18:15 12/19/17 18:22 Aldactone PO 25 mg BID RUPINDER Administration Thiamine HCl 100 mg 12/19/17 11:30 12/19/17 12:26 Vitamin B1 Tab PO 100 mg DAILY RUPINDER Administration Vitamin A 1 ea 12/18/17 10:00 12/19/17 09:43 Vitamin A & D Oint Ud Foilpak TOP 1 ea BID RUPINDER Administration - Patient Studies Lab Studies: Lab Studies 12/19/17 12/19/17 12/19/17 Range/Units 15:42 15:42 06:11 WBC 3.3 L (4.8-10.8) K/uL RBC 2.72 L (4.40-5.90) Mil/uL Hgb 7.7 L (12.0-18.0) g/dL Hct 23.5 L (35.0-51.0) % MCV 86.5 (80.0-94.0) fL MCH 28.2 (27.0-31.0) pg MCHC 32.6 L (33.0-37.0) g/dL RDW 16.4 H (11.5-14.5) % Plt Count 52 L (130-400) K/uL MPV 10.0 (7.2-11.7) fL Neut % (Auto) 65.3 (50.0-75.0) % Lymph % (Auto) 15.5 L (20.0-40.0) % Bland % (Auto) 10.2 H (0.0-10.0) % Eos % (Auto) 7.7 H (0.0-4.0) % Baso % (Auto) 1.3 (0.0-2.0) % Neut # (Auto) 2.1 (1.8-7.0) K/uL Lymph # (Auto) 0.5 L (1.0-4.3) K/uL Bland # (Auto) 0.3 (0.0-0.8) K/uL Eos # (Auto) 0.3 (0.0-0.7) K/uL Baso # (Auto) 0.0 (0.0-0.2) K/uL PT 23.3 H (9.7-12.2) SECONDS INR 2.0 Sodium (132-148) mmol/L Potassium (3.6-5.2) mmol/L Chloride (98-107) mmol/L Carbon Dioxide (22-30) mmol/L Anion Gap (10-20) BUN (9-20) mg/dL Creatinine (0.8-1.5) mg/dL Est GFR ( Amer) Est GFR (Non-Af Amer) POC Glucose (mg/dL) (65-110) mg/dL Random Glucose (75-110) mg/dL Calcium (8.6-10.4) mg/dl Phosphorus (2.5-4.5) mg/dL Magnesium (1.6-2.3) mg/dL Total Bilirubin (0.2-1.3) mg/dL AST (17-59) U/L ALT (21-72) U/L Alkaline Phosphatase (38-126) U/L Ammonia 83 H D (9-33) umol/L Total Protein (6.3-8.3) g/dL Albumin (3.5-5.0) g/dL Globulin (2.2-3.9) gm/dL Albumin/Globulin Ratio (1.0-2.1) Alpha Fetoprotein (0.0-7.5) ng/mL Urine Color (YELLOW) Urine Clarity (Clear) Urine pH (5.0-8.0) Ur Specific [place] (1.003-1.030) Urine Protein (NEGATIVE) mg/dL Urine Glucose (UA) (Normal) mg/dL Urine Ketones (NEGATIVE) mg/dL Urine Blood (NEGATIVE) Urine Nitrate (NEGATIVE) Urine Bilirubin (NEGATIVE) Urine Urobilinogen (0.2-1.0) mg/dL Ur Leukocyte Esterase (Negative) Kiesha/uL Urine WBC (Auto) (0-5) /hpf Urine RBC (Auto) (0-3) /hpf Urine Osmolality (300-1000) mosm/kg Ur Random Creatinine mg/dL Ur Random Sodium mmol/L Complement C3 (88.0-165.0) mg/dL Complement C4 (14.0-44.0) mg/dL Blood Type Antibody Screen 12/19/17 12/19/17 12/19/17 Range/Units 06:11 06:11 06:11 WBC 2.8 L (4.8-10.8) K/uL RBC 2.29 L (4.40-5.90) Mil/uL Hgb 6.5 L* (12.0-18.0) g/dL Hct 19.4 L (35.0-51.0) % MCV 85.0 (80.0-94.0) fL MCH 28.5 (27.0-31.0) pg MCHC 33.5 (33.0-37.0) g/dL RDW 16.4 H (11.5-14.5) % Plt Count 34 L D (130-400) K/uL MPV 10.0 (7.2-11.7) fL Neut % (Auto) 54.3 (50.0-75.0) % Lymph % (Auto) 20.6 (20.0-40.0) % Bland % (Auto) 13.5 H (0.0-10.0) % Eos % (Auto) 9.4 H (0.0-4.0) % Baso % (Auto) 2.2 H (0.0-2.0) % Neut # (Auto) 1.5 L (1.8-7.0) K/uL Lymph # (Auto) 0.6 L (1.0-4.3) K/uL Bland # (Auto) 0.4 (0.0-0.8) K/uL Eos # (Auto) 0.3 (0.0-0.7) K/uL Baso # (Auto) 0.1 (0.0-0.2) K/uL PT (9.7-12.2) SECONDS INR Sodium 138 (132-148) mmol/L Potassium 3.6 (3.6-5.2) mmol/L Chloride 115 H (98-107) mmol/L Carbon Dioxide 13 L (22-30) mmol/L Anion Gap 13 (10-20) BUN 33 H (9-20) mg/dL Creatinine 1.8 H (0.8-1.5) mg/dL Est GFR ( Amer) 53 Est GFR (Non-Af Amer) 44 POC Glucose (mg/dL) (65-110) mg/dL Random Glucose 60 L (75-110) mg/dL Calcium 6.5 L (8.6-10.4) mg/dl Phosphorus 3.9 (2.5-4.5) mg/dL Magnesium 1.5 L (1.6-2.3) mg/dL Total Bilirubin 5.2 H (0.2-1.3) mg/dL AST 50 (17-59) U/L ALT 39 (21-72) U/L Alkaline Phosphatase 22 L D (38-126) U/L Ammonia (9-33) umol/L Total Protein 5.8 L (6.3-8.3) g/dL Albumin 2.3 L (3.5-5.0) g/dL Globulin 3.6 (2.2-3.9) gm/dL Albumin/Globulin Ratio 0.6 L (1.0-2.1) Alpha Fetoprotein (0.0-7.5) ng/mL Urine Color (YELLOW) Urine Clarity (Clear) Urine pH (5.0-8.0) Ur Specific [place] (1.003-1.030) Urine Protein (NEGATIVE) mg/dL Urine Glucose (UA) (Normal) mg/dL Urine Ketones (NEGATIVE) mg/dL Urine Blood (NEGATIVE) Urine Nitrate (NEGATIVE) Urine Bilirubin (NEGATIVE) Urine Urobilinogen (0.2-1.0) mg/dL Ur Leukocyte Esterase (Negative) Kiesha/uL Urine WBC (Auto) (0-5) /hpf Urine RBC (Auto) (0-3) /hpf Urine Osmolality (300-1000) mosm/kg Ur Random Creatinine mg/dL Ur Random Sodium mmol/L Complement C3 < 40.0 L (88.0-165.0) mg/dL Complement C4 < 8.0 L (14.0-44.0) mg/dL Blood Type Antibody Screen 12/19/17 12/18/17 12/18/17 Range/Units 06:11 23:52 22:42 WBC 3.0 L (4.8-10.8) K/uL RBC 2.48 L (4.40-5.90) Mil/uL Hgb 7.0 L (12.0-18.0) g/dL Hct 20.8 L (35.0-51.0) % MCV 84.0 (80.0-94.0) fL MCH 28.4 (27.0-31.0) pg MCHC 33.8 (33.0-37.0) g/dL RDW 16.5 H (11.5-14.5) % Plt Count 63 L D (130-400) K/uL MPV 10.5 (7.2-11.7) fL Neut % (Auto) 57.9 (50.0-75.0) % Lymph % (Auto) 19.7 L (20.0-40.0) % Bland % (Auto) 13.3 H (0.0-10.0) % Eos % (Auto) 7.3 H (0.0-4.0) % Baso % (Auto) 1.8 (0.0-2.0) % Neut # (Auto) 1.7 L (1.8-7.0) K/uL Lymph # (Auto) 0.6 L (1.0-4.3) K/uL Bland # (Auto) 0.4 (0.0-0.8) K/uL Eos # (Auto) 0.2 (0.0-0.7) K/uL Baso # (Auto) 0.1 (0.0-0.2) K/uL PT (9.7-12.2) SECONDS INR Sodium (132-148) mmol/L Potassium (3.6-5.2) mmol/L Chloride (98-107) mmol/L Carbon Dioxide (22-30) mmol/L Anion Gap (10-20) BUN (9-20) mg/dL Creatinine (0.8-1.5) mg/dL Est GFR ( Amer) Est GFR (Non-Af Amer) POC Glucose (mg/dL) 85 (65-110) mg/dL Random Glucose (75-110) mg/dL Calcium (8.6-10.4) mg/dl Phosphorus (2.5-4.5) mg/dL Magnesium (1.6-2.3) mg/dL Total Bilirubin (0.2-1.3) mg/dL AST (17-59) U/L ALT (21-72) U/L Alkaline Phosphatase (38-126) U/L Ammonia (9-33) umol/L Total Protein (6.3-8.3) g/dL Albumin (3.5-5.0) g/dL Globulin (2.2-3.9) gm/dL Albumin/Globulin Ratio (1.0-2.1) Alpha Fetoprotein 2.7 (0.0-7.5) ng/mL Urine Color (YELLOW) Urine Clarity (Clear) Urine pH (5.0-8.0) Ur Specific [place] (1.003-1.030) Urine Protein (NEGATIVE) mg/dL Urine Glucose (UA) (Normal) mg/dL Urine Ketones (NEGATIVE) mg/dL Urine Blood (NEGATIVE) Urine Nitrate (NEGATIVE) Urine Bilirubin (NEGATIVE) Urine Urobilinogen (0.2-1.0) mg/dL Ur Leukocyte Esterase (Negative) Kiesha/uL Urine WBC (Auto) (0-5) /hpf Urine RBC (Auto) (0-3) /hpf Urine Osmolality (300-1000) mosm/kg Ur Random Creatinine mg/dL Ur Random Sodium mmol/L Complement C3 (88.0-165.0) mg/dL Complement C4 (14.0-44.0) mg/dL Blood Type Antibody Screen 02/03/3012/18/17 12/16/17 Range/Units 21:55 19:00 18:11 WBC (4.8-10.8) K/uL RBC (4.40-5.90) Mil/uL Hgb (12.0-18.0) g/dL Hct (35.0-51.0) % MCV (80.0-94.0) fL MCH (27.0-31.0) pg MCHC (33.0-37.0) g/dL RDW (11.5-14.5) % Plt Count (130-400) K/uL MPV (7.2-11.7) fL Neut % (Auto) (50.0-75.0) % Lymph % (Auto) (20.0-40.0) % [place] % (Auto) (0.0-10.0) % Eos % (Auto) (0.0-4.0) % Baso % (Auto) (0.0-2.0) % Neut # (Auto) (1.8-7.0) K/uL Lymph # (Auto) (1.0-4.3) K/uL [place] # (Auto) (0.0-0.8) K/uL Eos # (Auto) (0.0-0.7) K/uL Baso # (Auto) (0.0-0.2) K/uL PT (9.7-12.2) SECONDS INR Sodium (132-148) mmol/L Potassium (3.6-5.2) mmol/L Chloride (98-107) mmol/L Carbon Dioxide (22-30) mmol/L Anion Gap (10-20) BUN (9-20) mg/dL Creatinine (0.8-1.5) mg/dL Est GFR ( Amer) Est GFR (Non-Af Amer) POC Glucose (mg/dL) (65-110) mg/dL Random Glucose (75-110) mg/dL Calcium (8.6-10.4) mg/dl Phosphorus (2.5-4.5) mg/dL Magnesium (1.6-2.3) mg/dL Total Bilirubin (0.2-1.3) mg/dL AST (17-59) U/L ALT (21-72) U/L Alkaline Phosphatase (38-126) U/L Ammonia (9-33) umol/L Total Protein (6.3-8.3) g/dL Albumin (3.5-5.0) g/dL Globulin (2.2-3.9) gm/dL Albumin/Globulin Ratio (1.0-2.1) Alpha Fetoprotein (0.0-7.5) ng/mL Urine Color Yellow (YELLOW) Urine Clarity Clear (Clear) Urine pH 5.0 (5.0-8.0) Ur Specific [place] 1.010 (1.003-1.030) Urine Protein Negative (NEGATIVE) mg/dL Urine Glucose (UA) Normal (Normal) mg/dL Urine Ketones Negative (NEGATIVE) mg/dL Urine Blood 3+ H (NEGATIVE) Urine Nitrate Negative (NEGATIVE) Urine Bilirubin Negative (NEGATIVE) Urine Urobilinogen Normal (0.2-1.0) mg/dL Ur Leukocyte Esterase Trace (Negative) Kiesha/uL Urine WBC (Auto) 24 H (0-5) /hpf Urine RBC (Auto) 567 H (0-3) /hpf Urine Osmolality 344 (300-1000) mosm/kg Ur Random Creatinine 72.1 mg/dL Ur Random Sodium 53 mmol/L Complement C3 (88.0-165.0) mg/dL Complement C4 (14.0-44.0) mg/dL Blood Type A POSITIVE Antibody Screen Negative Laboratory Results - last 24 hr 12/16/17 12/18/17 12/18/17 18:11 19:00 21:55 WBC RBC Hgb Hct MCV MCH MCHC RDW Plt Count MPV Neut % (Auto) Lymph % (Auto) [place] % (Auto) Eos % (Auto) Baso % (Auto) Neut # (Auto) Lymph # (Auto) [place] # (Auto) Eos # (Auto) Baso # (Auto) PT INR Sodium Potassium Chloride Carbon Dioxide Anion Gap BUN Creatinine Est GFR ( Amer) Est GFR (Non-Af Amer) POC Glucose (mg/dL) Random Glucose Calcium Phosphorus Magnesium Total Bilirubin AST ALT Alkaline Phosphatase Ammonia Total Protein Albumin Globulin Albumin/Globulin Ratio Alpha Fetoprotein Urine Color Yellow Urine Clarity Clear Urine pH 5.0 Ur Specific [place] 1.010 Urine Protein Negative Urine Glucose (UA) Normal Urine Ketones Negative Urine Blood 3+ H Urine Nitrate Negative Urine Bilirubin Negative Urine Urobilinogen Normal Ur Leukocyte Esterase Trace Urine WBC (Auto) 24 H Urine RBC (Auto) 567 H Urine Osmolality 344 Ur Random Creatinine 72.1 Ur Random Sodium 53 Complement C3 Complement C4 Blood Type A POSITIVE Antibody Screen Negative 12/18/17 12/18/17 12/19/17 22:42 23:52 06:11 WBC 3.0 L RBC 2.48 L Hgb 7.0 L Hct 20.8 L MCV 84.0 MCH 28.4 MCHC 33.8 RDW 16.5 H Plt Count 63 L D MPV 10.5 Neut % (Auto) 57.9 Lymph % (Auto) 19.7 L Bland % (Auto) 13.3 H Eos % (Auto) 7.3 H Baso % (Auto) 1.8 Neut # (Auto) 1.7 L Lymph # (Auto) 0.6 L [place] # (Auto) 0.4 Eos # (Auto) 0.2 Baso # (Auto) 0.1 PT INR Sodium Potassium Chloride Carbon Dioxide Anion Gap BUN Creatinine Est GFR ( Amer) Est GFR (Non-Af Amer) POC Glucose (mg/dL) 85 Random Glucose Calcium Phosphorus Magnesium Total Bilirubin AST ALT Alkaline Phosphatase Ammonia Total Protein Albumin Globulin Albumin/Globulin Ratio Alpha Fetoprotein 2.7 Urine Color Urine Clarity Urine pH Ur Specific [place] Urine Protein Urine Glucose (UA) Urine Ketones Urine Blood Urine Nitrate Urine Bilirubin Urine Urobilinogen Ur Leukocyte Esterase Urine WBC (Auto) Urine RBC (Auto) Urine Osmolality Ur Random Creatinine Ur Random Sodium Complement C3 Complement C4 Blood Type Antibody Screen 12/19/17 12/19/17 12/19/17 06:11 06:11 06:11 WBC 2.8 L RBC 2.29 L Hgb 6.5 L* Hct 19.4 L MCV 85.0 MCH 28.5 MCHC 33.5 RDW 16.4 H Plt Count 34 L D MPV 10.0 Neut % (Auto) 54.3 Lymph % (Auto) 20.6 Bland % (Auto) 13.5 H Eos % (Auto) 9.4 H Baso % (Auto) 2.2 H Neut # (Auto) 1.5 L Lymph # (Auto) 0.6 L [place] # (Auto) 0.4 Eos # (Auto) 0.3 Baso # (Auto) 0.1 PT INR Sodium 138 Potassium 3.6 Chloride 115 H Carbon Dioxide 13 L Anion Gap 13 BUN 33 H Creatinine 1.8 H Est GFR ( Amer) 53 Est GFR (Non-Af Amer) 44 POC Glucose (mg/dL) Random Glucose 60 L Calcium 6.5 L Phosphorus 3.9 Magnesium 1.5 L Total Bilirubin 5.2 H AST 50 ALT 39 Alkaline Phosphatase 22 L D Ammonia Total Protein 5.8 L Albumin 2.3 L Globulin 3.6 Albumin/Globulin Ratio 0.6 L Alpha Fetoprotein Urine Color Urine Clarity Urine pH Ur Specific [place] Urine Protein Urine Glucose (UA) Urine Ketones Urine Blood Urine Nitrate Urine Bilirubin Urine Urobilinogen Ur Leukocyte Esterase Urine WBC (Auto) Urine RBC (Auto) Urine Osmolality Ur Random Creatinine Ur Random Sodium Complement C3 < 40.0 L Complement C4 < 8.0 L Blood Type Antibody Screen 12/19/17 12/19/17 12/19/17 06:11 15:42 15:42 WBC 3.3 L RBC 2.72 L Hgb 7.7 L Hct 23.5 L MCV 86.5 MCH 28.2 MCHC 32.6 L RDW 16.4 H Plt Count 52 L MPV 10.0 Neut % (Auto) 65.3 Lymph % (Auto) 15.5 L Bland % (Auto) 10.2 H Eos % (Auto) 7.7 H Baso % (Auto) 1.3 Neut # (Auto) 2.1 Lymph # (Auto) 0.5 L [place] # (Auto) 0.3 Eos # (Auto) 0.3 Baso # (Auto) 0.0 PT 23.3 H INR 2.0 Sodium Potassium Chloride Carbon Dioxide Anion Gap BUN Creatinine Est GFR ( Amer) Est GFR (Non-Af Amer) POC Glucose (mg/dL) Random Glucose Calcium Phosphorus Magnesium Total Bilirubin AST ALT Alkaline Phosphatase Ammonia 83 H D Total Protein Albumin Globulin Albumin/Globulin Ratio Alpha Fetoprotein Urine Color Urine Clarity Urine pH Ur Specific [place] Urine Protein Urine Glucose (UA) Urine Ketones Urine Blood Urine Nitrate Urine Bilirubin Urine Urobilinogen Ur Leukocyte Esterase Urine WBC (Auto) Urine RBC (Auto) Urine Osmolality Ur Random Creatinine Ur Random Sodium Complement C3 Complement C4 Blood Type Antibody Screen Critical Care Progress Note - Nutrition Nutrition: Nutrition Category Date Time Status Liquid Diet [DIET] Diets 12/19/17 Lunch Active Attending/Attestation - Attestation I have personally seen and examined this patient.: Yes I have fully participated in the care of the patient.: Yes I have reviewed all pertinent clinical information: Yes Notes (Text): 12/19/17 18:35 patient seen and examined in the intensive care unit. Case discussed with house staff in the morning Status post transfusion PACKED RBCs, FFP and vitamin K No active bleeding noted Status post EGD and banding of varices On octreotide and Protonix Albumin discontinued Nephrology follow-up Monitor hemoglobin, platelets and PT INR
--- NOTE | 2017-12-19 12:02 | CP.PCM.CON ---
History of Present Illness - History of Present Illness History of Present Illness: Palliative consult requested for goals of care discussion Patient is 32 years old male admitted from home with altered mental status. Patient was found by his brother, confused, unable to speak, and was only rolling his eyes. Patient's brother called 911 and patient was admitted for further treatment. Ultrasound of abdomen was significant for ascites, and liver cirrhosis. CAT scan of the head was negative acute findings. Patient underwent endo-for varicose veins bonding. Albumin IV, Sandostatin IV, lactulose by mouth, and Rocephin IV on 4. White blood count 2.8, hemoglobin 6.5, BUN 33, creatinine 1.8, total bili 5.2. Dr. Pelaez from GI on board. Past medical history, alcohol abuse seen some 1998, previously hospitalized here at [facility] and [facility] in [facility] for the same reason, was on the supervision of his and was sober for the last 6 months. According to ED report went out of town for the week and patient was drinking during that time. 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 Nursing patient has been sleeping most of the time no acute distress. Past Patient History - Past Medical History & Family History Past Medical History?: Yes - Past Social History Smoking Status: Never Smoked - CARDIAC Hx Atrial Fibrillation: No - PULMONARY Hx Respiratory Disorders: No - NEUROLOGICAL Hx Neurological Disorder: No - HEENT Hx HEENT Problems: No - RENAL Hx Chronic Kidney Disease: No - ENDOCRINE/METABOLIC Hx Endocrine Disorders: No - HEMATOLOGICAL/ONCOLOGICAL Hx Anemia: Yes - INTEGUMENTARY Hx Dermatological Problems: No - MUSCULOSKELETAL/RHEUMATOLOGICAL Hx Falls: No - GASTROINTESTINAL Hx Gastritis: Yes - GENITOURINARY/GYNECOLOGICAL Hx Genitourinary Disorders: No - PSYCHIATRIC Hx Substance Use: No - SURGICAL HISTORY Hx Surgeries: No - ANESTHESIA Hx Anesthesia: Yes Hx Anesthesia Reactions: No Meds Allergies/Adverse Reactions: Allergies Allergy/AdvReac Type Severity Reaction Status Date / Time No Known Allergies Allergy Verified 09/07/16 10:21 - Medications Medications: Current Medications Ceftriaxone Sodium (Rocephin Iv 1 Gm Duplex) 50 mls @ 100 mls/hr IVPB DAILY [facility] Last Admin: 12/19/17 10:40 Dose: 100 mls/hr Albumin Human (Albutein 5% 500 Ml) 500 mls @ 166.667 mls/hr IVPB Q8H [facility] Stop: 12/21/17 10:59 Last Admin: 12/19/17 07:54 Dose: 166.667 mls/hr Octreotide Acetate 1,250 mcg/ (Dextrose) 252.5 mls @ 5.05 mls/hr IV .Q24H [facility] PRN Reason: 25 MCG/HR Lactulose (Enulose) 20 gm PO BID [facility] Last Admin: 12/19/17 09:41 Dose: 20 gm Morphine Sulfate (Morphine) 2 mg IV Q3 PRN PRN Reason: Pain, moderate (4-7) Last Admin: 12/19/17 09:41 Dose: 2 mg Pantoprazole Sodium (Protonix Inj) 40 mg IV ACB [facility] Last Admin: 12/19/17 07:38 Dose: 40 mg Thiamine HCl (Vitamin B1 Tab) 100 mg PO DAILY [facility] Vitamin A (Vitamin A & D Oint Ud Foilpak) 1 ea TOP BID [facility] Last Admin: 12/19/17 09:43 Dose: 1 ea Physical Exam - Constitutional Appears: Chronically Ill - Head Exam Head Exam: ATRAUMATIC, NORMAL INSPECTION, NORMOCEPHALIC - Eye Exam Eye Exam: EOMI, Normal appearance, PERRL Pupil Exam: NORMAL ACCOMODATION Additional comments: Scleral jaundice - ENT Exam ENT Exam: Mucous Membranes Dry - Neck Exam Neck exam: Positive for: Normal Inspection - Respiratory Exam Respiratory Exam: Decreased Breath Sounds - Cardiovascular Exam Cardiovascular Exam: Tachycardia, REGULAR RHYTHM - GI/Abdominal Exam GI & Abdominal Exam: Distended, Firm, Guarding - Rectal Exam Rectal Exam: Deferred - Exam Exam: NORMAL INSPECTION - Extremities Exam Extremities exam: Positive for: pedal edema - Back Exam Back exam: NORMAL INSPECTION - Neurological Exam Neurological exam: Alert, Altered - Psychiatric Exam Psychiatric exam: Flat Affect - Skin Additional comments: Jaundice Results - Vital Signs Recent Vital Signs: Last Vital Signs Temp 98.1 F 12/19/17 11:41 Pulse 70 12/19/17 11:41 Resp 15 12/19/17 11:41 BP 122/70 12/19/17 11:41 Pulse Ox 100 12/19/17 11:41 - Labs Result Diagrams: 12/19/17 06:11 12/19/17 06:11 Labs: Laboratory Results - last 24 hr 12/16/17 12/18/17 12/18/17 18:11 17:45 19:00 WBC RBC Hgb Hct MCV MCH MCHC RDW Plt Count MPV Neut % (Auto) Lymph % (Auto) [place] % (Auto) Eos % (Auto) Baso % (Auto) Neut # (Auto) Lymph # (Auto) [place] # (Auto) Eos # (Auto) Baso # (Auto) PT INR Sodium Potassium Chloride Carbon Dioxide Anion Gap BUN Creatinine Est GFR ( Amer) Est GFR (Non-Af Amer) POC Glucose (mg/dL) 109 Random Glucose Calcium Phosphorus Magnesium Total Bilirubin AST ALT Alkaline Phosphatase Total Protein Albumin Globulin Albumin/Globulin Ratio Alpha Fetoprotein Urine Color Urine Clarity Urine pH Ur Specific [place] Urine Protein Urine Glucose (UA) Urine Ketones Urine Blood Urine Nitrate Urine Bilirubin Urine Urobilinogen Ur Leukocyte Esterase Urine WBC (Auto) Urine RBC (Auto) Urine Osmolality 344 Ur Random Creatinine 72.1 Ur Random Sodium 53 Complement C3 Complement C4 Blood Type A POSITIVE Antibody Screen Negative 12/18/17 12/18/17 12/18/17 21:55 22:42 23:52 WBC 3.0 L RBC 2.48 L Hgb 7.0 L Hct 20.8 L MCV 84.0 MCH 28.4 MCHC 33.8 RDW 16.5 H Plt Count 63 L D MPV 10.5 Neut % (Auto) 57.9 Lymph % (Auto) 19.7 L [place] % (Auto) 13.3 H Eos % (Auto) 7.3 H Baso % (Auto) 1.8 Neut # (Auto) 1.7 L Lymph # (Auto) 0.6 L [place] # (Auto) 0.4 Eos # (Auto) 0.2 Baso # (Auto) 0.1 PT INR Sodium Potassium Chloride Carbon Dioxide Anion Gap BUN Creatinine Est GFR ( Amer) Est GFR (Non-Af Amer) POC Glucose (mg/dL) 85 Random Glucose Calcium Phosphorus Magnesium Total Bilirubin AST ALT Alkaline Phosphatase Total Protein Albumin Globulin Albumin/Globulin Ratio Alpha Fetoprotein Urine Color Yellow Urine Clarity Clear Urine pH 5.0 Ur Specific [place] 1.010 Urine Protein Negative Urine Glucose (UA) Normal Urine Ketones Negative Urine Blood 3+ H Urine Nitrate Negative Urine Bilirubin Negative Urine Urobilinogen Normal Ur Leukocyte Esterase Trace Urine WBC (Auto) 24 H Urine RBC (Auto) 567 H Urine Osmolality Ur Random Creatinine Ur Random Sodium Complement C3 Complement C4 Blood Type Antibody Screen 12/19/17 12/19/17 12/19/17 06:11 06:11 06:11 WBC 2.8 L RBC 2.29 L Hgb 6.5 L* Hct 19.4 L MCV 85.0 MCH 28.5 MCHC 33.5 RDW 16.4 H Plt Count 34 L D MPV 10.0 Neut % (Auto) 54.3 Lymph % (Auto) 20.6 [place] % (Auto) 13.5 H Eos % (Auto) 9.4 H Baso % (Auto) 2.2 H Neut # (Auto) 1.5 L Lymph # (Auto) 0.6 L [place] # (Auto) 0.4 Eos # (Auto) 0.3 Baso # (Auto) 0.1 PT INR Sodium 138 Potassium 3.6 Chloride 115 H Carbon Dioxide 13 L Anion Gap 13 BUN 33 H Creatinine 1.8 H Est GFR ( Amer) 53 Est GFR (Non-Af Amer) 44 POC Glucose (mg/dL) Random Glucose 60 L Calcium 6.5 L Phosphorus 3.9 Magnesium 1.5 L Total Bilirubin 5.2 H AST 50 ALT 39 Alkaline Phosphatase 22 L D Total Protein 5.8 L Albumin 2.3 L Globulin 3.6 Albumin/Globulin Ratio 0.6 L Alpha Fetoprotein 2.7 Urine Color Urine Clarity Urine pH Ur Specific [place] Urine Protein Urine Glucose (UA) Urine Ketones Urine Blood Urine Nitrate Urine Bilirubin Urine Urobilinogen Ur Leukocyte Esterase Urine WBC (Auto) Urine RBC (Auto) Urine Osmolality Ur Random Creatinine Ur Random Sodium Complement C3 Complement C4 Blood Type Antibody Screen 12/19/17 12/19/17 06:11 06:11 WBC RBC Hgb Hct MCV MCH MCHC RDW Plt Count MPV Neut % (Auto) Lymph % (Auto) [place] % (Auto) Eos % (Auto) Baso % (Auto) Neut # (Auto) Lymph # (Auto) [place] # (Auto) Eos # (Auto) Baso # (Auto) PT 23.3 H INR 2.0 Sodium Potassium Chloride Carbon Dioxide Anion Gap BUN Creatinine Est GFR ( Amer) Est GFR (Non-Af Amer) POC Glucose (mg/dL) Random Glucose Calcium Phosphorus Magnesium Total Bilirubin AST ALT Alkaline Phosphatase Total Protein Albumin Globulin Albumin/Globulin Ratio Alpha Fetoprotein Urine Color Urine Clarity Urine pH Ur Specific [place] Urine Protein Urine Glucose (UA) Urine Ketones Urine Blood Urine Nitrate Urine Bilirubin Urine Urobilinogen Ur Leukocyte Esterase Urine WBC (Auto) Urine RBC (Auto) Urine Osmolality Ur Random Creatinine Ur Random Sodium Complement C3 < 40.0 L Complement C4 < 8.0 L Blood Type Antibody Screen Assessment & Plan - Assessment and Plan (Free Text) Assessment: Palliative consult There is no advanced directive in the chart, called status full code, BPS 10%'s I reviewed medical records all diagnostic studies, examined patient in the bed, and discussed goals of care with patient's brother. Patient seen and examined in bed, looking chronically ill, lethargic, easily arousable, opens his eyes when called name, and answers simple questions. Skin and sclera jaundiced. Breath sounds diminished. Abdomen distended, diminished bowel sounds, reports pain upon palpation, denies nausea. There is a mild to moderate pedal edema. Urine is dark. Patient was ordered that clear liquids diet by Dr. Pelaez and was to have the diet today for lunch. Away from the bed goals of care discussed with patient's brother Mr. Vyas, phone number [phone]. The brother admitted being very concerned with patient's condition and is willing to do whatever it takes to help his brother. I reviewed patient's symptoms in regards of his diagnosis. The brother understand the severity of the disease and would like to talk to Dr. Wilfredo pierce and to get more information. I asked nursing to get in touch with Dr. Pelaez office and to help the family in these regards. Impression * Disease is chronically you young man with multiple admissions to the hospital with the same symptoms do not believe a cirrhosis. * There is abdominal pain due to distention * The diet is advanced clearly beats today for lunch * Patient is very lethargic and sleeps most of the day * Patient's brother stays at the bedside and advocates for the patient * Brother wants to talk to Dr. Estes and get more detailed information about patient's condition Suggestions * Symptoms control * Clear liquids as tolerated * Aspiration precaution * Control abdominal pain, morphine 2 mg IV every 4 hours as needed for pain Contact information given to the brother. Palliative care will continue to follow up with this patient and his family and offer support Advanced planning time, 45 minutes
[2017-12-19 15:59] LABS: BASO % 1.3 % (0.0-2.0); EOS # 0.3 K/uL (0.0-0.7); EOS % 7.7 % (0.0-4.0); HEMOGLOBIN 7.7 g/dL (12.0-18.0); LYMPH # 0.5 K/uL (1.0-4.3); LYMPH % 15.5 % (20.0-40.0); MEAN CELL VOLUME 86.5 fL (80.0-94.0); MEAN CORPUSCULAR HEMOGLOBIN 28.2 pg (27.0-31.0); MEAN CORPUSCULAR HGB CONC 32.6 g/dL (33.0-37.0); MONO # 0.3 K/uL (0.0-0.8); MONO % 10.2 % (0.0-10.0); NEUT # 2.1 K/uL (1.8-7.0); NEUT % 65.3 % (50.0-75.0); RBC 2.72 Mil/uL (4.40-5.90); RED CELL DISTRIBUTION WIDTH 16.4 % (11.5-14.5); WHITE BLOOD COUNT 3.3 K/uL (4.8-10.8)
--- NOTE | 2017-12-19 17:31 | CP.PCM.PN ---
Subjective - Date & Time of Evaluation Date of Evaluation: 12/19/17 Time of Evaluation: 17:00 - Subjective Subjective: Hosptitalist Progress Note Patient was seen and examined at 5:00 PM 12/19/17 ICU Bed #16 Please see Assessment and Plans below for details ROS: Had last bowel movement was evening of 12/17/17 and has not had a bowel movement since then Burning type mid abdominal pain extending up to his sternum. NO chest pain NO palpitations NO n/v/d/c NO burning/pain with urination: has yeh in place NO new changes in vision NO new changes in hearing NO paresthesias Bilateral Feet/Leg Edema since August 2016 and Right Arm Edema since 12/18/17 Also on Exam: HEENT: NCA, EOMI, PERRLA, (+) Scleral Icterus bilaterallyNO Pharyngeal erythema/ exudate, NO cervical/supraclavicular/submandibular lymphadenopathy, NO thyromegaly, dried blood on his lower lip Cardio: NS1 and NS2, NO M/R/G Resp: CTA B/L, NO R/R/W GI: NT, (+) Distention, BSx4, Liver and Spleen could not be adequately palpated , NO rebound/guarding, Tenderness to palpation in the LUQ Ext: Pulses are strong and equal, Capillary Refill is 2 seconds, (+) Edema 1+ from bilateral feet to the the knees. NON pitting edema of the Right Hand to entire hand Skin: has a slightly yellowish hue to it particularly upper body Neuro: CN II through XII are grossly intactq Explained to patient that he has Alcohol related Liver failure and that he will need to follow up with [facility] through our [facility] Assessment/Plan 1) Altered Mental Status Secondary Hepatic Encephalopathy History of Liver Cirrhosis with Known History of Varices GI Bleed Severe Anemia likely secondary to GI bleed Coagulopathy * Admitted to the Critical Care Unit * GI (Dr. Pelaez) on the case * Abdominal US (09/08/16): increased echogenicity of the liver consistent with stated history of cirrhosis. Gallbladder wall thickening up to 6mm which may be related to liver pathology/cirrhosis versus less likely cholecystitis. * Abdominal US (12/18/17): ascites. Hepatic cirrhosis. Reversal of normal flow direction in portal vein. No evidence of portal venous thrombosis. Mildly thickening gallbladder wall, nonspecific. Marked splenomegaly. * Prior Endoscopy (2015): Grade III varcies in the lower third of esopahgus. One varix with visible vessel present. Three bands successfuly placed with incomplete eradication of varcies. 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 Portal Hypertensive gastropathy in gastric body. * Prior endoscopy (2015): grade II and large (>5mm) varcies with no bleeding were found in the middle third of the esophagus. Lower third the esophagus and the GE junction 30 to 40 cm from the incisors. Stigmata of recent bledding. Varices had red mary signs. Six bands were successfully placed with complete eradication resulting in deflation of varices. Bleeding had stopped at the end of the procedure. * CT Head (12/16/17): no definite acute intracranial abnormality. (further findings per report) * Upper Endoscopy (12/18/17): done by Dr. Pelaez and showed large esophageal varices and 5 were banded, portal hypertensive gastropathy, enlarged gastric folds * As of 12/19/17 he was given 6 units of PRBCs: HgB/Hct currently at 7.7/23.5 * Elevated INR: improved to 1.9 after Vitamin K 10 mg IV x 1 dose 12/16/17 and multiple units FFP * On Octreotide Drip started 12/16/17 * On Protonix Drip started 12/16/17 * Lactulose 20 gm PO BID: he has not had a bowel movement since evening 12/17/17. * Rocephin 1 gram IVPB daily (active since 12/17/17) for SBP prophylaxis * Albumin 5% 500 ml Q8H for a total of 9 doses with last dose on 12/21/17 * Awaiting IR Dr. Ever Phillips to perform therapeutic paracentesis: ascites fluid culture and cytology already ordered 2) Acute Renal Failure * Nephrology (Dr. Keen) on consult for further recommendations * Unclear if renal failure is reflection of patient's suspected bleeding vs. hepatorenal syndrome given liver cirrhosis * lbumin 5% 500 ml Q8H for a total of 9 doses with last dose on 12/21/17 and follow up BUN/Cr to see if there is a response * Baseline Creatine: 0.6 (09/10/16) * Monitor urine output 3) B/l Leg Edema and Right Upper Arm Edema * Likely secondary to decompensated liver cirrhosis and elevated INR * Bilateral UE and LE Venous Doppler (12/19/17): negative for DVT 4) Hyperkalemia * Given in the ED, given Calcium gluconate 1amp, 1 amp D50, 10 units of Regular insulin to stabilize the potassium; Patient given additional Kayaexlate overnight. Potassium improved and now has normalized * EKG In the ED: ST depression V4 and V5 (not official read). W 5) Prophylactic Measure * Protonix Drip * Octreotide Drip * Bilateral SCDs and NO anticoagulation considering Anemia and Elevated INR and Thrombocytopenia Objective - Vital Signs/Intake and Output Vital Signs (last 24 hours): Temp Pulse Resp BP Pulse Ox 97.9 F 74 14 114/63 100 12/19/17 15:00 12/19/17 16:57 12/19/17 16:57 12/19/17 16:57 12/19/17 16:57 Intake and Output: 12/19/17 12/19/17 06:59 18:59 Intake Total 565 1940 Output Total 862 1375 Balance -297 565 - Medications Medications: Current Medications Ceftriaxone Sodium (Rocephin Iv 1 Gm Duplex) 50 mls @ 100 mls/hr IVPB DAILY [facility] Last Admin: 12/19/17 10:40 Dose: 100 mls/hr Albumin Human (Albutein 5% 500 Ml) 500 mls @ 166.667 mls/hr IVPB Q8H [facility] Stop: 12/21/17 10:59 Last Admin: 12/19/17 16:09 Dose: 166.667 mls/hr Octreotide Acetate 1,250 mcg/ (Dextrose) 252.5 mls @ 5.05 mls/hr IV .Q24H [facility] PRN Reason: 25 MCG/HR Lactulose (Enulose) 20 gm PO BID [facility] Last Admin: 12/19/17 09:41 Dose: 20 gm Morphine Sulfate (Morphine) 2 mg IV Q3 PRN PRN Reason: Pain, moderate (4-7) Last Admin: 12/19/17 16:27 Dose: 2 mg Pantoprazole Sodium (Protonix Inj) 40 mg IV ACB [facility] Last Admin: 12/19/17 07:38 Dose: 40 mg Thiamine HCl (Vitamin B1 Tab) 100 mg PO DAILY [facility] Last Admin: 12/19/17 12:26 Dose: 100 mg Vitamin A (Vitamin A & D Oint Ud Foilpak) 1 ea TOP BID [facility] Last Admin: 12/19/17 09:43 Dose: 1 ea - Labs Labs: 12/19/17 15:42 12/19/17 06:11 PT 23.3 SECONDS (9.7-12.2) H 12/19/17 06:11 INR 2.0 12/19/17 06:11 APTT 30 SECONDS (21-34) 12/16/17 18:59
--- NOTE | 2017-12-19 17:35 | CP.PCM.PN ---
Subjective - Date & Time of Evaluation Date of Evaluation: 12/19/17 Time of Evaluation: 17:33 - Subjective Subjective: 32 yo M w/ pmh of severe portal htn s/p esophageal banding, ETOH abuse, admitted with severe anemia, RADHA; Patient being started on clear liquid diet; denies nausea/vomiting; reporting epigastric/mid chest pain; denies shortness of breath; Objective - Vital Signs/Intake and Output Vital Signs (last 24 hours): Temp Pulse Resp BP Pulse Ox 97.9 F 74 14 114/63 100 12/19/17 15:00 12/19/17 16:57 12/19/17 16:57 12/19/17 16:57 12/19/17 16:57 Intake and Output: 12/19/17 12/19/17 06:59 18:59 Intake Total 565 1940 Output Total 862 1375 Balance -297 565 - Medications Medications: Current Medications Ceftriaxone Sodium (Rocephin Iv 1 Gm Duplex) 50 mls @ 100 mls/hr IVPB DAILY [facility] Last Admin: 12/19/17 10:40 Dose: 100 mls/hr Albumin Human (Albutein 5% 500 Ml) 500 mls @ 166.667 mls/hr IVPB Q8H [facility] Stop: 12/21/17 10:59 Last Admin: 12/19/17 16:09 Dose: 166.667 mls/hr Octreotide Acetate 1,250 mcg/ (Dextrose) 252.5 mls @ 5.05 mls/hr IV .Q24H [facility] PRN Reason: 25 MCG/HR Lactulose (Enulose) 20 gm PO BID [facility] Last Admin: 12/19/17 09:41 Dose: 20 gm Morphine Sulfate (Morphine) 2 mg IV Q3 PRN PRN Reason: Pain, moderate (4-7) Last Admin: 12/19/17 16:27 Dose: 2 mg Pantoprazole Sodium (Protonix Inj) 40 mg IV ACB [facility] Last Admin: 12/19/17 07:38 Dose: 40 mg Thiamine HCl (Vitamin B1 Tab) 100 mg PO DAILY [facility] Last Admin: 12/19/17 12:26 Dose: 100 mg Vitamin A (Vitamin A & D Oint Ud Foilpak) 1 ea TOP BID [facility] Last Admin: 12/19/17 09:43 Dose: 1 ea - Labs Labs: 12/19/17 15:42 12/19/17 06:11 PT 23.3 SECONDS (9.7-12.2) H 12/19/17 06:11 INR 2.0 12/19/17 06:11 APTT 30 SECONDS (21-34) 12/16/17 18:59 - Constitutional Appears: Non-toxic, No Acute Distress - Eye Exam Eye Exam: Scleral icterus - ENT Exam ENT Exam: Mucous Membranes Moist - Respiratory Exam Respiratory Exam: absent: Respiratory Distress Additional comments: L basal rales; - Cardiovascular Exam Cardiovascular Exam: RRR, +S1, +S2 - GI/Abdominal Exam GI & Abdominal Exam: Distended, Soft, Tenderness Additional comments: mild tenderness - Extremities Exam Additional comments: markedly edematous legs extending to low back, anasarca; - Neurological Exam Neurological Exam: Alert, Awake - Psychiatric Exam Psychiatric exam: absent: Agitated - Skin Skin Exam: Warm. absent: Cyanosis Assessment and Plan - Assessment and Plan (Free Text) Assessment: 1- RADHA - Non-oliguric renal failure in the setting of hypotension and intravascular volume depletion; responding well to volume repletion with blood products and IV albumin w/ saline which is consistent with pre-renal etiology ( possibly with some degree of extension to ATN as well); Volume excess on exam with elevated JVD and L basal rales; should avoid excessive volume administration to prevent respiratory compromise and intra-abd htn in patient already anasarca and compromised renal function; -obtaining CXR -hold further IV albumin -continue SBP prophylaxis (may help prevent HRS) 2- Hematuria - Marked hematuria on direct visualization of urine microscopy yesterday but no dysmorphic RBC's or cellular casts seen; profound complement consumption likely due to decreased hepatic synthesis rather than an underlying glomerulonephritis; will re-assess after yeh removed; 3- Metabolic acidosis - Non-gap acidosis, worsened by chloride containing IVF administration; will d/c; 4- Electrolyte Abnormalities - Mild hypocalcemia in the setting of receiving large amounts of blood products, exacerbated by hypomagnesemia (replenished today); montor, replenish prn;
[2017-12-19] MEDS ORDERED: Octreotide 1,250 MCG in Dextrose 5% In Water 250 ML IV SCH (19:00)
[2017-12-19] MEDS: Calcium Carbonate 500 mg Chewable Antacid Tab PO SCH (19:04)
[2017-12-20] MEDS: Morphine 4 MG/ML VIAL IV PRN ×5 (02:35→21:40)
--- NOTE | 2017-12-20 06:29 | CP.PCM.PN ---
<Tripp Lawrence - Last Filed: 12/20/17 09:32> Subjective - Date & Time of Evaluation Date of Evaluation: 12/20/17 Time of Evaluation: 05:30 - Subjective Subjective: GI Progress note: Pt seen and examined at bedside. No acute events overnight. Pt complaining of some abdominal distension and discomfort. Last BM 3 days ago. Denies any nausea or vomiting. Tolerated clear liquid diet. No other complaints. 12 Point ROS performed and negative other than stated above. Objective - Vital Signs/Intake and Output Vital Signs (last 24 hours): Temp Pulse Resp BP Pulse Ox 98.4 F 90 14 119/64 97 12/20/17 00:00 12/20/17 03:00 12/20/17 03:00 12/20/17 02:31 12/20/17 03:00 Intake and Output: 12/19/17 12/20/17 18:59 06:59 Intake Total 2111 55 Output Total 1575 450 Balance 536 -395 - Medications Medications: Current Medications Calcium Carbonate (Tums) 1,000 mg PO BID [facility] Last Admin: 12/19/17 19:04 Dose: 1,000 mg Ceftriaxone Sodium (Rocephin Iv 1 Gm Duplex) 50 mls @ 100 mls/hr IVPB DAILY [facility] Last Admin: 12/19/17 10:40 Dose: 100 mls/hr Octreotide Acetate 1,250 mcg/ (Dextrose) 252.5 mls @ 5.05 mls/hr IV .Q24H [facility] PRN Reason: 25 MCG/HR Last Admin: 12/19/17 19:04 Dose: 5.05 mls/hr Lactulose (Enulose) 20 gm PO BID [facility] Last Admin: 12/19/17 18:22 Dose: 20 gm Morphine Sulfate (Morphine) 2 mg IV Q3 PRN PRN Reason: Pain, moderate (4-7) Last Admin: 12/20/17 02:35 Dose: 2 mg Pantoprazole Sodium (Protonix Inj) 40 mg IV ACB [facility] Last Admin: 12/19/17 07:38 Dose: 40 mg Spironolactone (Aldactone) 25 mg PO BID [facility] Last Admin: 12/19/17 18:22 Dose: 25 mg Thiamine HCl (Vitamin B1 Tab) 100 mg PO DAILY [facility] Last Admin: 12/19/17 12:26 Dose: 100 mg Vitamin A (Vitamin A & D Oint Ud Foilpak) 1 ea TOP BID [facility] Last Admin: 12/19/17 18:36 Dose: Not Given - Labs Labs: 12/19/17 15:42 12/19/17 06:11 PT 23.3 SECONDS (9.7-12.2) H 12/19/17 06:11 INR 2.0 12/19/17 06:11 APTT 30 SECONDS (21-34) 12/16/17 18:59 - Constitutional Appears: In Acute Distress - Head Exam Head Exam: ATRAUMATIC, NORMOCEPHALIC - Eye Exam Eye Exam: EOMI Pupil Exam: NORMAL ACCOMODATION - ENT Exam ENT Exam: Mucous Membranes Moist - Respiratory Exam Respiratory Exam: Clear to Ausculation Bilateral. absent: Rales, Wheezes - Cardiovascular Exam Cardiovascular Exam: REGULAR RHYTHM, +S1, +S2 - GI/Abdominal Exam GI & Abdominal Exam: Distended, Tenderness, Normal Bowel Sounds. absent: Organomegaly Additional comments: Mild tenderness, Distended - Extremities Exam Extremities Exam: Pedal Edema. absent: Calf Tenderness, Tenderness - Neurological Exam Neurological Exam: Alert, Awake, Oriented x3 - Psychiatric Exam Psychiatric exam: Normal Mood - Skin Skin Exam: Dry, Intact, Warm Assessment and Plan - Assessment and Plan (Free Text) Assessment: 31yo male with PMHx significant for decompensated alcoholic cirrhosis with esophageal varices s/p banding in July 2016 who presents with altered mental status and severe normocytic anemia. s/p 6 units PRBCs. S/p EGD showing large esophageal varices w/ 5 bands placed successfully, portal hypertensive gastropathy and enlarged gastric folds. -Normocytic anemia -Decompensated alcholic cirrhosis complicated by hepatic encephalopathy, and esophageal varices -Hyperbilirubinemia -Coagulopathy of cirrhosis -Hyperkalemia - resolved -Renal Failure Plan: -Will consider advancing diet today to full liquids -Continue Albumin 25gm Q8H total of 9 bottles -Anemia - S/p 7 units total of PRBC with goal hgb ~ 7-8, - likely from known varices, portal hypertensive gastropathy, or bone marrow suppression from chronic ETOH abuse -s/p 1 unit PRBC yesterday -IR consulted for therapeutic paracentesis -Cont to monitor H/H -Continue Protonix 40mg IV ACB -Discontinue Octreotide drip today -Consider beta evelin therapy for prevention of variceal hemorrhage -Ceftriaxone 1g IV daily for SBP ppx -Increase lactulose, titrate so patient is having 2-3 bowel movements daily -Anti-emetics PRN -Pain control -Abdominal U/S showed hepatic cirrhosis, extensive ascites, splenomegaly, no evidence of PVT, hepatofugal flow consistent with severe portal HTN -Renal failure- FENA of 1.7 - intrinsic cause, abd US of kidneys with normal limits, Cr this morning dec to 1.5 -F/u renal consult recs -MELD- NA of 27 yesterday -Cont to monitor patients clinical course Case and plan was reviewed and discussed in detail with Dr Vaughan. <Maximilian Vaughan - Last Filed: 12/20/17 11:27> Objective - Vital Signs/Intake and Output Vital Signs (last 24 hours): Temp Pulse Resp BP Pulse Ox 98.2 F 86 13 114/63 95 12/20/17 04:00 12/20/17 08:00 12/20/17 08:00 12/20/17 05:31 12/20/17 08:00 Intake and Output: 12/20/17 12/20/17 06:59 18:59 Intake Total 60 5 Output Total 1999 150 Balance -1940 -145 - Medications Medications: Current Medications Calcium Carbonate (Tums) 1,000 mg PO BID [facility] Last Admin: 12/20/17 10:48 Dose: 1,000 mg Ceftriaxone Sodium (Rocephin Iv 1 Gm Duplex) 50 mls @ 100 mls/hr IVPB DAILY [facility] Last Admin: 12/20/17 10:48 Dose: 100 mls/hr Lactulose (Enulose) 20 gm PO BID [facility] Last Admin: 12/20/17 10:47 Dose: 20 gm Morphine Sulfate (Morphine) 2 mg IV Q3 PRN PRN Reason: Pain, moderate (4-7) Last Admin: 12/20/17 09:05 Dose: 2 mg Pantoprazole Sodium (Protonix Inj) 40 mg IV ACB [facility] Last Admin: 12/20/17 10:47 Dose: 40 mg Spironolactone (Aldactone) 25 mg PO BID [facility] Last Admin: 12/20/17 10:47 Dose: 25 mg Thiamine HCl (Vitamin B1 Tab) 100 mg PO DAILY [facility] Last Admin: 12/20/17 10:48 Dose: 100 mg Vitamin A (Vitamin A & D Oint Ud Foilpak) 1 ea TOP BID [facility] Last Admin: 12/20/17 10:49 Dose: 1 ea - Labs Labs: 12/20/17 06:40 12/20/17 06:29 PT 23.3 SECONDS (9.7-12.2) H 12/19/17 06:11 INR 2.0 12/19/17 06:11 APTT 30 SECONDS (21-34) 12/16/17 18:59 Attending/Attestation - Attestation I have personally seen and examined this patient.: Yes I have fully participated in the care of the patient.: Yes I have reviewed all pertinent clinical information, including history, physical exam and plan: Yes Notes (Text): 12/20/17 11:25 31 year old male with alcoholic cirrhosis c/b esophageal variceael bleeding s/p banding. 1. Alcoholic cirrhosis 2. Ascites 3. Esophageal varices 4. Acute renal failure Plan: -s/p EGD with banding -on abx for SBP proph -recommend paracentesis to r/o sbp -hold diuretics due to renal insufficiency -would avoid removing more than 5 liters of ascitic fluid due to renal failure -give albumin resuscitation -may stop octreotide today and transition PPI to oral -supportive measures advance diet
[2017-12-20 07:02] LABS: ALB/GLOB RATIO 0.7 (1.0-2.1); ALBUMIN 3.1 g/dL (3.5-5.0); ALT/SGPT 43 U/L (21-72); AST/SGOT 53 U/L (17-59); BLOOD UREA NITROGEN 28 mg/dL (9-20); CALCIUM 9.2 mg/dl (8.6-10.4); GFR AFRICAN-AMERICAN > 60; GFR NON-AFRICAN AMERICAN 54; MAGNESIUM 1.8 mg/dL (1.6-2.3)
[2017-12-20 07:12] LABS: BASO # 0.1 K/uL (0.0-0.2); BASO % 1.4 % (0.0-2.0); EOS # 0.3 K/uL (0.0-0.7); EOS % 6.5 % (0.0-4.0); HEMOGLOBIN 7.9 g/dL (12.0-18.0); LYMPH # 0.6 K/uL (1.0-4.3); LYMPH % 14.5 % (20.0-40.0); MEAN CELL VOLUME 86.9 fL (80.0-94.0); MEAN CORPUSCULAR HEMOGLOBIN 28.6 pg (27.0-31.0); MEAN CORPUSCULAR HGB CONC 32.9 g/dL (33.0-37.0); MEAN PLATELET VOLUME 9.6 fL (7.2-11.7); MONO # 0.6 K/uL (0.0-0.8); NEUT # 2.5 K/uL (1.8-7.0); NEUT % 62.6 % (50.0-75.0); NRBC % 1.4 % (0.0-2.0); RBC 2.76 Mil/uL (4.40-5.90); RED CELL DISTRIBUTION WIDTH 16.7 % (11.5-14.5)
[2017-12-20] MEDS ORDERED: Magnesium Sulfate 1 gm in D5W 1 GM/100 ML BAG IVPB ONE (07:48)
--- NOTE | 2017-12-20 09:19 | RAD ---
HISTORY: r/o CHF COMPARISON: 12/16/2017. FINDINGS: LUNGS: There are low lung volumes. Again seen is mild pulmonary venous congestion. PLEURA: No significant pleural effusion identified, no pneumothorax apparent. CARDIOVASCULAR: There is persistent severe cardiomegaly. OSSEOUS STRUCTURES: No significant abnormalities. VISUALIZED UPPER ABDOMEN: Normal. OTHER FINDINGS: None. IMPRESSION: Persistent severe cardiomegaly and mild venous congestion. Low lung volumes may be related to poor inspiratory effort.No active pulmonary disease.
--- NOTE | 2017-12-20 10:34 | CP.CCUPN ---
<Blanie Molina - Last Filed: 12/20/17 11:25> CCU Subjective - Physician Review Subjective (Free Text): 12/20/17 10:32 Patient seen and examined at bedside comfortable no complaints at this time extensive varices H/H stable today, no need for transfusion at this time GI for further management will continue to monitor closely CCU Objective - Vital Signs / Intake & Output Vital Signs (Last 4 hours): Vital Signs Pulse Resp Pulse Ox 12/20/17 08:00 86 13 95 12/20/17 07:00 89 14 95 Intake and Output (Last 8hrs): Intake & Output 12/19/17 12/20/17 12/20/17 22:59 06:59 14:59 Intake Total 372 40 5 Output Total 1455 1120 150 Balance -1083 -1080 -145 Intake: Intake, IV Amount 40 40 5 Left External Jugular 5 Right External Jugular 35 40 5 Albumin 332 Output: Urine 1455 1120 150 Urethral (Zamarripa) 1455 1120 150 Stool 0 0 - Medications Active Medications: Active Medications Generic Name Dose Route Start Last Admin Trade Name Freq PRN Reason Stop Dose Admin Calcium Carbonate 1,000 mg 12/19/17 18:15 12/19/17 19:04 Tums PO 1,000 mg BID [facility] Administration Ceftriaxone Sodium 50 mls @ 100 mls/hr 12/17/17 13:30 12/19/17 10:40 Rocephin Iv 1 Gm Duplex IVPB 100 mls/hr DAILY [facility] Administration Lactulose 20 gm 12/17/17 10:45 12/19/17 18:22 Enulose PO 20 gm BID [facility] Administration Morphine Sulfate 2 mg 12/19/17 01:03 12/20/17 09:05 Morphine IV 2 mg Q3 PRN Administration Pain, moderate (4-7) Pantoprazole Sodium 40 mg 12/19/17 07:30 12/19/17 07:38 Protonix Inj IV 40 mg ACB [facility] Administration Spironolactone 25 mg 12/19/17 18:15 12/19/17 18:22 Aldactone PO 25 mg BID [facility] Administration Thiamine HCl 100 mg 12/19/17 11:30 12/19/17 12:26 Vitamin B1 Tab PO 100 mg DAILY [facility] Administration Vitamin A 1 ea 12/18/17 10:00 12/19/17 18:36 Vitamin A & D Oint Ud Foilpak TOP Not Given BID [facility] - Patient Studies Lab Studies: Lab Studies 12/20/17 12/20/17 12/19/17 Range/Units 06:40 06:29 15:42 WBC 4.0 L (4.8-10.8) K/uL RBC 2.76 L (4.40-5.90) Mil/uL Hgb 7.9 L (12.0-18.0) g/dL Hct 24.0 L (35.0-51.0) % MCV 86.9 (80.0-94.0) fL MCH 28.6 (27.0-31.0) pg MCHC 32.9 L (33.0-37.0) g/dL RDW 16.7 H (11.5-14.5) % Plt Count 35 L (130-400) K/uL MPV 9.6 (7.2-11.7) fL Neut % (Auto) 62.6 (50.0-75.0) % Lymph % (Auto) 14.5 L (20.0-40.0) % [place] % (Auto) 15.0 H (0.0-10.0) % Eos % (Auto) 6.5 H (0.0-4.0) % Baso % (Auto) 1.4 (0.0-2.0) % Neut # (Auto) 2.5 (1.8-7.0) K/uL Lymph # (Auto) 0.6 L (1.0-4.3) K/uL [place] # (Auto) 0.6 (0.0-0.8) K/uL Eos # (Auto) 0.3 (0.0-0.7) K/uL Baso # (Auto) 0.1 (0.0-0.2) K/uL Sodium 139 (132-148) mmol/L Potassium 4.3 (3.6-5.2) mmol/L Chloride 108 H (98-107) mmol/L Carbon Dioxide 20 L (22-30) mmol/L Anion Gap 16 (10-20) BUN 28 H (9-20) mg/dL Creatinine 1.5 (0.8-1.5) mg/dL Est GFR ( Amer) > 60 Est GFR (Non-Af Amer) 54 Random Glucose 102 (75-110) mg/dL Calcium 9.2 (8.6-10.4) mg/dl Phosphorus 4.0 (2.5-4.5) mg/dL Magnesium 1.8 (1.6-2.3) mg/dL Total Bilirubin 9.5 H (0.2-1.3) mg/dL AST 53 (17-59) U/L ALT 43 (21-72) U/L Alkaline Phosphatase 37 L D (38-126) U/L Ammonia 83 H D (9-33) umol/L Total Protein 7.4 (6.3-8.3) g/dL Albumin 3.1 L D (3.5-5.0) g/dL Globulin 4.2 H (2.2-3.9) gm/dL Albumin/Globulin Ratio 0.7 L (1.0-2.1) Blood Type Antibody Screen 12/19/17 12/16/17 Range/Units 15:42 18:11 WBC 3.3 L (4.8-10.8) K/uL RBC 2.72 L (4.40-5.90) Mil/uL Hgb 7.7 L (12.0-18.0) g/dL Hct 23.5 L (35.0-51.0) % MCV 86.5 (80.0-94.0) fL MCH 28.2 (27.0-31.0) pg MCHC 32.6 L (33.0-37.0) g/dL RDW 16.4 H (11.5-14.5) % Plt Count 52 L (130-400) K/uL MPV 10.0 (7.2-11.7) fL Neut % (Auto) 65.3 (50.0-75.0) % Lymph % (Auto) 15.5 L (20.0-40.0) % [place] % (Auto) 10.2 H (0.0-10.0) % Eos % (Auto) 7.7 H (0.0-4.0) % Baso % (Auto) 1.3 (0.0-2.0) % Neut # (Auto) 2.1 (1.8-7.0) K/uL Lymph # (Auto) 0.5 L (1.0-4.3) K/uL [place] # (Auto) 0.3 (0.0-0.8) K/uL Eos # (Auto) 0.3 (0.0-0.7) K/uL Baso # (Auto) 0.0 (0.0-0.2) K/uL Sodium (132-148) mmol/L Potassium (3.6-5.2) mmol/L Chloride (98-107) mmol/L Carbon Dioxide (22-30) mmol/L Anion Gap (10-20) BUN (9-20) mg/dL Creatinine (0.8-1.5) mg/dL Est GFR ( Amer) Est GFR (Non-Af Amer) Random Glucose (75-110) mg/dL Calcium (8.6-10.4) mg/dl Phosphorus (2.5-4.5) mg/dL Magnesium (1.6-2.3) mg/dL Total Bilirubin (0.2-1.3) mg/dL AST (17-59) U/L ALT (21-72) U/L Alkaline Phosphatase (38-126) U/L Ammonia (9-33) umol/L Total Protein (6.3-8.3) g/dL Albumin (3.5-5.0) g/dL Globulin (2.2-3.9) gm/dL Albumin/Globulin Ratio (1.0-2.1) Blood Type A POSITIVE Antibody Screen Negative Laboratory Results - last 24 hr 12/16/17 12/19/17 12/19/17 18:11 15:42 15:42 WBC 3.3 L RBC 2.72 L Hgb 7.7 L Hct 23.5 L MCV 86.5 MCH 28.2 MCHC 32.6 L RDW 16.4 H Plt Count 52 L MPV 10.0 Neut % (Auto) 65.3 Lymph % (Auto) 15.5 L [place] % (Auto) 10.2 H Eos % (Auto) 7.7 H Baso % (Auto) 1.3 Neut # (Auto) 2.1 Lymph # (Auto) 0.5 L [place] # (Auto) 0.3 Eos # (Auto) 0.3 Baso # (Auto) 0.0 Sodium Potassium Chloride Carbon Dioxide Anion Gap BUN Creatinine Est GFR ( Amer) Est GFR (Non-Af Amer) Random Glucose Calcium Phosphorus Magnesium Total Bilirubin AST ALT Alkaline Phosphatase Ammonia 83 H D Total Protein Albumin Globulin Albumin/Globulin Ratio Blood Type A POSITIVE Antibody Screen Negative 12/20/17 12/20/17 06:29 06:40 WBC 4.0 L RBC 2.76 L Hgb 7.9 L Hct 24.0 L MCV 86.9 MCH 28.6 MCHC 32.9 L RDW 16.7 H Plt Count 35 L MPV 9.6 Neut % (Auto) 62.6 Lymph % (Auto) 14.5 L [place] % (Auto) 15.0 H Eos % (Auto) 6.5 H Baso % (Auto) 1.4 Neut # (Auto) 2.5 Lymph # (Auto) 0.6 L [place] # (Auto) 0.6 Eos # (Auto) 0.3 Baso # (Auto) 0.1 Sodium 139 Potassium 4.3 Chloride 108 H Carbon Dioxide 20 L Anion Gap 16 BUN 28 H Creatinine 1.5 Est GFR ( Amer) > 60 Est GFR (Non-Af Amer) 54 Random Glucose 102 Calcium 9.2 Phosphorus 4.0 Magnesium 1.8 Total Bilirubin 9.5 H AST 53 ALT 43 Alkaline Phosphatase 37 L D Ammonia Total Protein 7.4 Albumin 3.1 L D Globulin 4.2 H Albumin/Globulin Ratio 0.7 L Blood Type Antibody Screen Critical Care Progress Note - Nutrition Nutrition: Nutrition Category Date Time Status Liquid Diet [DIET] Diets 12/19/17 Lunch Active Assessment/Plan - Assessment and Plan (Free Text) Assessment: Patient is a 32 year-old male with severe anemia, alcohol use disorder complicated by hepatic encephalopathy, and extensive varices treated with banding procedure. Plan: Heme: severe anemia, acute; edema in extremities - continue monitoring H/H (appear stabilized) and platelets; repeat CBC and consider coags to follow INR - Venous Doppler Ultrasound for b/l LE edema and RUE negative for DVT Nephro: acute renal failure 2/2 ischemia - Aldactone 25mg PO BID - NON AG met. acid. - Rx HCO3 if pH < 7.2 - Continue monitoring urine output - Albutein 5% D/C'd GI: hepatic encephalopathy; gib - clear liquid diet as tolerated - therapeutic paracentesis by IR (Alan) with culture - Rocephin IV 1g duplex for SBP ppx - Lactulose 20mg PO BID titrate to 2-3 BM per day (last BM 3 days ago) - Octreotide D/C'd PPx: - Mariann and D ointment - Morphine 2mg IV q3 PRN - Protonix 40mg IV ACB - Thiamine B1 tab 100mg PO qd - MgSO4 1g in 100ml IVPD x1 <Luz Joyceudhry Carli - Last Filed: 12/20/17 16:21> CCU Objective - Vital Signs / Intake & Output Intake and Output (Last 8hrs): Intake & Output 12/20/17 12/20/17 12/20/17 06:59 14:59 22:59 Intake Total 40 10 Output Total 1120 150 Balance -1080 -140 Intake: Intake, IV Amount 40 10 Right External Jugular 40 10 Output: Urine 1120 150 Urethral (Zamarripa) 1120 150 Stool 0 0 - Medications Active Medications: Active Medications Generic Name Dose Route Start Last Admin Trade Name Freq PRN Reason Stop Dose Admin Calcium Carbonate 1,000 mg 12/19/17 18:15 12/20/17 10:48 Tums PO 1,000 mg BID [facility] Administration Ceftriaxone Sodium 50 mls @ 100 mls/hr 12/17/17 13:30 12/20/17 10:48 Rocephin Iv 1 Gm Duplex IVPB 100 mls/hr DAILY [facility] Administration Lactulose 20 gm 12/17/17 10:45 12/20/17 10:47 Enulose PO 20 gm BID [facility] Administration Morphine Sulfate 2 mg 12/19/17 01:03 12/20/17 15:33 Morphine IV 2 mg Q3 PRN Administration Pain, moderate (4-7) Pantoprazole Sodium 40 mg 12/19/17 07:30 12/20/17 10:47 Protonix Inj IV 40 mg ACB [facility] Administration Spironolactone 25 mg 12/19/17 18:15 12/20/17 10:47 Aldactone PO 25 mg BID [facility] Administration Thiamine HCl 100 mg 12/19/17 11:30 12/20/17 10:48 Vitamin B1 Tab PO 100 mg DAILY [facility] Administration Vitamin A 1 ea 12/18/17 10:00 12/20/17 10:49 Vitamin A & D Oint Ud Foilpak TOP 1 ea BID [facility] Administration - Patient Studies Lab Studies: Lab Studies 12/20/17 12/20/17 Range/Units 06:40 06:29 WBC 4.0 L (4.8-10.8) K/uL RBC 2.76 L (4.40-5.90) Mil/uL Hgb 7.9 L (12.0-18.0) g/dL Hct 24.0 L (35.0-51.0) % MCV 86.9 (80.0-94.0) fL MCH 28.6 (27.0-31.0) pg MCHC 32.9 L (33.0-37.0) g/dL RDW 16.7 H (11.5-14.5) % Plt Count 35 L (130-400) K/uL MPV 9.6 (7.2-11.7) fL Neut % (Auto) 62.6 (50.0-75.0) % Lymph % (Auto) 14.5 L (20.0-40.0) % [place] % (Auto) 15.0 H (0.0-10.0) % Eos % (Auto) 6.5 H (0.0-4.0) % Baso % (Auto) 1.4 (0.0-2.0) % Neut # (Auto) 2.5 (1.8-7.0) K/uL Lymph # (Auto) 0.6 L (1.0-4.3) K/uL [place] # (Auto) 0.6 (0.0-0.8) K/uL Eos # (Auto) 0.3 (0.0-0.7) K/uL Baso # (Auto) 0.1 (0.0-0.2) K/uL Sodium 139 (132-148) mmol/L Potassium 4.3 (3.6-5.2) mmol/L Chloride 108 H (98-107) mmol/L Carbon Dioxide 20 L (22-30) mmol/L Anion Gap 16 (10-20) BUN 28 H (9-20) mg/dL Creatinine 1.5 (0.8-1.5) mg/dL Est GFR ( Amer) > 60 Est GFR (Non-Af Amer) 54 Random Glucose 102 (75-110) mg/dL Calcium 9.2 (8.6-10.4) mg/dl Phosphorus 4.0 (2.5-4.5) mg/dL Magnesium 1.8 (1.6-2.3) mg/dL Total Bilirubin 9.5 H (0.2-1.3) mg/dL AST 53 (17-59) U/L ALT 43 (21-72) U/L Alkaline Phosphatase 37 L D (38-126) U/L Total Protein 7.4 (6.3-8.3) g/dL Albumin 3.1 L D (3.5-5.0) g/dL Globulin 4.2 H (2.2-3.9) gm/dL Albumin/Globulin Ratio 0.7 L (1.0-2.1) Laboratory Results - last 24 hr 12/20/17 12/20/17 06:29 06:40 WBC 4.0 L RBC 2.76 L Hgb 7.9 L Hct 24.0 L MCV 86.9 MCH 28.6 MCHC 32.9 L RDW 16.7 H Plt Count 35 L MPV 9.6 Neut % (Auto) 62.6 Lymph % (Auto) 14.5 L [place] % (Auto) 15.0 H Eos % (Auto) 6.5 H Baso % (Auto) 1.4 Neut # (Auto) 2.5 Lymph # (Auto) 0.6 L [place] # (Auto) 0.6 Eos # (Auto) 0.3 Baso # (Auto) 0.1 Sodium 139 Potassium 4.3 Chloride 108 H Carbon Dioxide 20 L Anion Gap 16 BUN 28 H Creatinine 1.5 Est GFR ( Amer) > 60 Est GFR (Non-Af Amer) 54 Random Glucose 102 Calcium 9.2 Phosphorus 4.0 Magnesium 1.8 Total Bilirubin 9.5 H AST 53 ALT 43 Alkaline Phosphatase 37 L D Total Protein 7.4 Albumin 3.1 L D Globulin 4.2 H Albumin/Globulin Ratio 0.7 L Critical Care Progress Note - Nutrition Nutrition: Nutrition Category Date Time Status Liquid Diet [DIET] Diets 12/19/17 Lunch Active Attending/Attestation - Attestation I have personally seen and examined this patient.: Yes I have fully participated in the care of the patient.: Yes I have reviewed all pertinent clinical information: Yes Notes (Text): 12/20/17 16:19 patient seen and examined in the intensive care unit. No further bleeding noted Status post transfusion PACKED RBCs yesterday For paracentesis by IR Continue antibiotic for possible SBP Off octreotide drip
[2017-12-20] MEDS: Calcium Carbonate 500 mg Chewable Antacid Tab PO SCH ×2 (10:48→18:34)
[2017-12-20] MEDS: cefTRIAXone IV 1 gm in Dextros 50 ML IVPB SCH (10:48)
[2017-12-20] MEDS: Vitamins A & D Oint UD Foilpak TOP SCH ×2 (10:49→18:39)
--- NOTE | 2017-12-20 11:51 | VASCLAB ---
PROCEDURE: Upper Extremity Venous Duplex Exam HISTORY: swelling PRIORS: None. TECHNIQUE: Bilateral upper extremity, internal jugular, subclavian, axillary, brachial, ulnar, radial, basilic and upper cephalic veins were evaluated. Flow was assessed with color Doppler, compressibility, assessment of phasic flow and augmentation response. Report prepared by MYRIAM Meraz, RVT FINDINGS: RIGHT: 1. Internal Jugular: 1.1. Compressibility - Fully compressible: Thrombus - None : Flow - Phasic: Augmentation -Normal: Reflux - None. 2. Subclavian: 2.1. Compressibility - Fully compressible: Thrombus - None : Flow - Phasic: Augmentation -Normal: Reflux - None. 3. Axillary: 3.1. Compressibility - Fully compressible: Thrombus - None : Flow - Phasic: Augmentation -Normal: Reflux - None. 4. Brachial: 4.1. Compressibility - Fully compressible: Thrombus - None: Flow - Phasic: Augmentation -Normal: Reflux - None. 5. Ulnar: 5.1. Compressibility - Fully compressible: Thrombus - None: Flow - Phasic: Augmentation -Normal: Reflux - None. 6. Radial: 6.1. Compressibility - Fully compressible: Thrombus - None: Flow - Phasic: Augmentation - Normal: Reflux - None. 7. Cephalic: 7.1. Compressibility - Fully compressible: Thrombus - None: Flow - Phasic: Augmentation -Normal: Reflux - None. 8. Basilic: 8.1. Compressibility - Fully compressible: Thrombus - None: Flow - Phasic: Augmentation -Normal: Reflux - None. LEFT: 1. Internal Jugular: 1.1. Compressibility - Fully compressible: Thrombus - None : Flow - Phasic: Augmentation -Normal: Reflux - None. 2. Subclavian: 2.1. Compressibility - Fully compressible: Thrombus - None : Flow - Phasic: Augmentation -Normal: Reflux - None. 3. Axillary: 3.1. Compressibility - Fully compressible: Thrombus - None : Flow - Phasic: Augmentation -Normal: Reflux - None. 4. Brachial: 4.1. Compressibility - Fully compressible: Thrombus - None: Flow - Phasic: Augmentation -Normal: Reflux - None. 5. Ulnar: 5.1. Compressibility - Fully compressible: Thrombus - None: Flow - Phasic: Augmentation -Normal: Reflux - None. 6. Radial: 6.1. Compressibility - Fully compressible: Thrombus - None: Flow - Phasic: Augmentation - Normal: Reflux - None. 7. Cephalic: 7.1. Compressibility - Fully compressible: Thrombus - None: Flow - Phasic: Augmentation -Normal: Reflux - None. 8. Basilic: 8.1. Compressibility - Fully compressible: Thrombus - None: Flow - Phasic: Augmentation -Normal: Reflux - None. OTHER FINDINGS: Right: None. Left: None. IMPRESSION: Right: No evidence of vein thrombosis of the right upper extremity with excellent venous flow. Normal valve function noted of the right side. Left: No evidence of vein thrombosis of the left upper extremity with excellent venous flow. Normal valve function noted of the left side.
--- NOTE | 2017-12-20 11:52 | VASCLAB ---
PROCEDURE: Lower Extremity Venous Duplex Exam. HISTORY: swelling PRIORS: None. TECHNIQUE: Bilateral common femoral, femoral, popliteal and posterior tibial, peroneal and great saphenous veins were evaluated. Flow was assessed with color Doppler, compressibility, assessment of phasic flow and augmentation response. Report prepared by MYRIAM Meraz, RVT FINDINGS: RIGHT: 1. Common Femoral Vein: 1.1. Compressibility - Fully compressible: Thrombus - None : Flow - Phasic: Augmentation -Normal: Reflux - None. 2. Femoral Vein: 2.1. Compressibility - Fully compressible: Thrombus - None : Flow - Phasic: Augmentation -Normal: Reflux - None. 3. Popliteal Vein: 3.1. Compressibility - Fully compressible: Thrombus - None : Flow - Phasic: Augmentation -Normal: Reflux - None. 4. Posterior Tibial Vein: 4.1. Compressibility - Fully compressible: Thrombus - None: Flow - Phasic: Augmentation -Normal: Reflux - None. 5. Peroneal Vein: 5.1. Compressibility - Fully compressible: Thrombus - None: Flow - Phasic: Augmentation -Normal: Reflux - None. 6. Great Saphenous Vein: 6.1. Compressibility - Fully compressible: Thrombus - None: Flow - Phasic: Augmentation - Normal: Reflux - None. LEFT: 1. Common Femoral Vein: 1.1. Compressibility - Fully compressible: Thrombus - None: Flow - Phasic: Augmentation -Normal: Reflux - None. 2. Femoral Vein: 2.1. Compressibility - Fully compressible: Thrombus - None: Flow - Phasic: Augmentation -Normal: Reflux - None. 3. Popliteal Vein: 3.1. Compressibility - Fully compressible: Thrombus - None : Flow - Phasic: Augmentation -Normal: Reflux - None. 4. Posterior Tibial Vein: 4.1. Compressibility - Fully compressible: Thrombus - None: Flow - Phasic: Augmentation -Normal: Reflux - None. 5. Peroneal Vein: 5.1. Compressibility - Fully compressible: Thrombus - None: Flow - Phasic: Augmentation -Normal: Reflux - None. 6. Great Saphenous Vein: 6.1. Compressibility - Fully compressible: Thrombus - None: Flow - Phasic: Augmentation - Normal: Reflux - None. OTHER FINDINGS: Right: None significant. Left: None significant. IMPRESSION: Right: No evidence of deep or superficial vein thrombosis of the right lower extremity. Normal valve function noted of the right side. Left: No evidence of deep or superficial vein thrombosis of the left lower extremity. Normal valve function noted of the left side.
--- NOTE | 2017-12-20 14:08 | CARD ---
APPROVED REPORT EKG Measurement Heart [id number] <Conclusion> Normal sinus rhythm Nonspecific ST and T wave abnormality Prolonged QT Abnormal ECG
--- NOTE | 2017-12-20 17:13 | CP.PCM.PN ---
Subjective - Date & Time of Evaluation Date of Evaluation: 12/20/17 Time of Evaluation: 17:00 - Subjective Subjective: Hosptitalist Progress Note Patient was seen and examined at 5:00 PM 12/20/17 ICU Bed #16 with brother Asael [phone] present at bedside Please see Assessment and Plans below for details ROS: Had last bowel movement was evening of 12/17/17 and has not had a bowel movement since then Burning type mid abdominal pain extending up to his sternum after trying to eat (liquid diet of juice and jello) NO chest pain NO palpitations NO n/v/d NO burning/pain with urination: has yeh in place NO new changes in vision NO new changes in hearing NO paresthesias Bilateral Feet/Leg Edema since August 2016 and Right Arm Edema since 12/18/17 Also on Exam: HEENT: NCA, EOMI, PERRLA, (+) Scleral Icterus bilaterally, NO Pharyngeal erythema/exudate, NO cervical/supraclavicular/submandibular lymphadenopathy, NO thyromegaly Cardio: NS1 and NS2, NO M/R/G Resp: CTA B/L, NO R/R/W GI: NT, (+) Distention, BSx4, Liver and Spleen could not be adequately palpated , NO rebound/guarding, Tenderness to palpation in the LUQ Ext: Pulses are strong and equal, Capillary Refill is 2 seconds, (+) Edema 1+ from bilateral feet to the the knees. NON pitting edema of the Right Hand to entire hand Skin: has a slightly yellowish hue to it particularly upper body Neuro: CN II through XII are grossly intact Explained to patient and his brother that he has Alcohol related Liver failure and that he will need to follow up with [facility] through our [facility] Assessment/Plan 1) Altered Mental Status Secondary Hepatic Encephalopathy History of Liver Cirrhosis with Known History of Varices GI Bleed Severe Anemia likely secondary to GI bleed Coagulopathy * Admitted to the Critical Care Unit * GI (Dr. Pelaez) on the case * Abdominal US (09/08/16): increased echogenicity of the liver consistent with stated history of cirrhosis. Gallbladder wall thickening up to 6mm which may be related to liver pathology/cirrhosis versus less likely cholecystitis. * Abdominal US (12/18/17): ascites. Hepatic cirrhosis. Reversal of normal flow direction in portal vein. No evidence of portal venous thrombosis. Mildly thickening gallbladder wall, nonspecific. Marked splenomegaly. * Prior Endoscopy (2015): Grade III varcies in the lower third of esopahgus. One varix with visible vessel present. Three bands successfuly placed with incomplete eradication of varcies. 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 Portal Hypertensive gastropathy in gastric body. * Prior endoscopy (2015): grade II and large (>5mm) varcies with no bleeding were found in the middle third of the esophagus. Lower third the esophagus and the GE junction 30 to 40 cm from the incisors. Stigmata of recent bledding. Varices had red mary signs. Six bands were successfully placed with complete eradication resulting in deflation of varices. Bleeding had stopped at the end of the procedure. * CT Head (12/16/17): no definite acute intracranial abnormality. (further findings per report) * Upper Endoscopy (12/18/17): done by Dr. Pelaez and showed large esophageal varices and 5 were banded, portal hypertensive gastropathy, enlarged gastric folds * As of 12/20/17 he was given 7 units of PRBCs: HgB at 7.9 * Elevated INR: improved to 1.9 after Vitamin K 10 mg IV x 1 dose 12/16/17 and multiple units FFP * Was on Octreotide Drip but this was discontinued 12/20/17 * Protonix 40 mg IV ACB * Lactulose 20 gm PO BID: he has not had a bowel movement since evening 12/17/17 and still no bowel movement * Rocephin 1 gram IVPB daily (active since 12/17/17) for SBP prophylaxis * Propanolol 5 mg PO Q8H (started at lower dose of 5 mg instead of 10 considering low end of normal blood pressure) * Aldactone 25 mg PO BID * Awaiting IR Dr. Ever Phillips to perform therapeutic paracentesis: ascites fluid culture and cytology already ordered 2) Acute Renal Failure * Nephrology (Dr. Keen) on consult for further recommendations * Unclear if renal failure is reflection of patient's suspected bleeding vs. hepatorenal syndrome given liver cirrhosi * Baseline Creatine: 0.6 (09/10/16) * Monitor urine output 3) B/l Leg Edema and Right Upper Arm Edema * Likely secondary to decompensated liver cirrhosis and elevated INR * Bilateral UE and LE Venous Doppler (12/19/17): negative for DVT 4) Hyperkalemia * Given in the ED, given Calcium gluconate 1amp, 1 amp D50, 10 units of Regular insulin to stabilize the potassium; Patient given additional Kayaexlate overnight. Potassium improved and now has normalized * EKG In the ED: ST depression V4 and V5 (not official read). 5). Hypomagnesemia * Replenished 6). Hypocalcemia * Calcium Carbonate 1,000 mg PO BID 7). Metabolic Acidosis * Improving 8) Prophylactic Measure * Protonix 40 mg IV AB * Bilateral SCDs and NO anticoagulation considering Anemia and Elevated INR and Thrombocytopenia * Morphine 2 mg IV Q3H PRN Severe Pain * Clear Liquid Diet: explained to patient that he must get out of bed with assistance to sit in chair during his meals and then afterwards stay in chair for at least 30 to 45 minutes before getting back into bed. Artemio Mendoza D.O. Objective - Vital Signs/Intake and Output Vital Signs (last 24 hours): Temp Pulse Resp BP Pulse Ox 98.3 F 95 H 12 130/64 90 L 12/20/17 16:00 12/20/17 16:00 12/20/17 16:00 12/20/17 15:31 12/20/17 16:00 Intake and Output: 12/20/17 12/20/17 06:59 18:59 Intake Total 60 110 Output Total 2000 950 Balance -1940 -840 - Medications Medications: Current Medications Calcium Carbonate (Tums) 1,000 mg PO BID [facility] Last Admin: 12/20/17 10:48 Dose: 1,000 mg Ceftriaxone Sodium (Rocephin Iv 1 Gm Duplex) 50 mls @ 100 mls/hr IVPB DAILY [facility] Last Admin: 12/20/17 10:48 Dose: 100 mls/hr Lactulose (Enulose) 20 gm PO BID [facility] Last Admin: 12/20/17 10:47 Dose: 20 gm Morphine Sulfate (Morphine) 2 mg IV Q3 PRN PRN Reason: Pain, moderate (4-7) Last Admin: 12/20/17 15:33 Dose: 2 mg Pantoprazole Sodium (Protonix Inj) 40 mg IV ACB [facility] Last Admin: 12/20/17 10:47 Dose: 40 mg Spironolactone (Aldactone) 25 mg PO BID [facility] Last Admin: 12/20/17 10:47 Dose: 25 mg Thiamine HCl (Vitamin B1 Tab) 100 mg PO DAILY [facility] Last Admin: 12/20/17 10:48 Dose: 100 mg Vitamin A (Vitamin A & D Oint Ud Foilpak) 1 ea TOP BID [facility] Last Admin: 12/20/17 10:49 Dose: 1 ea - Labs Labs: 12/20/17 06:40 12/20/17 06:29 PT 23.3 SECONDS (9.7-12.2) H 12/19/17 06:11 INR 2.0 12/19/17 06:11 APTT 30 SECONDS (21-34) 12/16/17 18:59
[2017-12-20] MEDS: Propranolol 5 mg Tab PO SCH (18:39)
--- NOTE | 2017-12-20 19:08 | CP.PCM.PN ---
Subjective - Date & Time of Evaluation Date of Evaluation: 12/20/17 Time of Evaluation: 12:00 - Subjective Subjective: Patient tolerating liquid diet; awaiting paracentesis; complaining of abd discomfort; not short of breath; Objective - Vital Signs/Intake and Output Vital Signs (last 24 hours): Temp Pulse Resp BP Pulse Ox 98.3 F 89 13 110/59 L 92 L 12/20/17 16:00 12/20/17 18:31 12/20/17 18:31 12/20/17 18:31 12/20/17 18:31 Intake and Output: 12/20/17 12/21/17 18:59 06:59 Intake Total 110 Output Total 950 Balance -840 - Medications Medications: Current Medications Ceftriaxone Sodium (Rocephin Iv 1 Gm Duplex) 50 mls @ 100 mls/hr IVPB DAILY [facility] Last Admin: 12/20/17 10:48 Dose: 100 mls/hr Lactulose (Enulose) 20 gm PO BID [facility] Last Admin: 12/20/17 18:39 Dose: 20 gm Morphine Sulfate (Morphine) 2 mg IV Q3 PRN PRN Reason: Pain, moderate (4-7) Last Admin: 12/20/17 18:39 Dose: 2 mg Pantoprazole Sodium (Protonix Inj) 40 mg IV ACB [facility] Last Admin: 12/20/17 10:47 Dose: 40 mg Propranolol HCl (Inderal) 5 mg PO TID [facility] Last Admin: 12/20/17 18:39 Dose: 5 mg Spironolactone (Aldactone) 25 mg PO BID [facility] Last Admin: 12/20/17 18:39 Dose: 25 mg Thiamine HCl (Vitamin B1 Tab) 100 mg PO DAILY [facility] Last Admin: 12/20/17 10:48 Dose: 100 mg Vitamin A (Vitamin A & D Oint Ud Foilpak) 1 ea TOP BID [facility] Last Admin: 12/20/17 18:39 Dose: 1 ea - Labs Labs: 12/20/17 06:40 12/20/17 06:29 PT 23.3 SECONDS (9.7-12.2) H 12/19/17 06:11 INR 2.0 12/19/17 06:11 APTT 30 SECONDS (21-34) 12/16/17 18:59 - Constitutional Appears: Non-toxic, No Acute Distress - Eye Exam Eye Exam: Scleral icterus - ENT Exam ENT Exam: Mucous Membranes Moist - Respiratory Exam Respiratory Exam: absent: Rhonchi, Wheezes, Respiratory Distress - Cardiovascular Exam Cardiovascular Exam: JVD, RRR, +S1, +S2 - GI/Abdominal Exam GI & Abdominal Exam: Distended, Soft - Extremities Exam Additional comments: markedly edematous legs, anasarca; - Neurological Exam Neurological Exam: Alert, Awake - Psychiatric Exam Psychiatric exam: Normal Affect, Normal Mood. absent: Agitated - Skin Skin Exam: Warm. absent: Cyanosis Assessment and Plan (1) RADHA (acute kidney injury) Assessment & Plan: Resolving; non-oliguric renal failure most consistent with pre-renal etiology; avoid nephrotoxic insults; otherwise, is volume replete and doesn't need any more replenishment for now; Status: Acute (2) Cardiomegaly Assessment & Plan: Seen on CXR; obtain echo to look for evidence of ETOH cardiomyopathy; Status: Acute (3) Cirrhosis Assessment & Plan: Decompensated liver failure; awaiting paracentesis; replenish with IV albumin 6- 8 g per liter removed after large volume paracentesis to avoid precipitating HRS ; Status: Acute
--- NOTE | 2017-12-21 06:50 | CP.PCM.PN ---
Addendum entered and electronically signed by Tripp Lawrence DO 12/21/17 09:50 : Altered GI/hepatic diet for lunch. Pt started on Aldactone 100mg PO daily and Lasix 40mg PO daily. Original Note: <Tripp Lawrence - Last Filed: 12/21/17 08:18> Subjective - Date & Time of Evaluation Date of Evaluation: 12/21/17 Time of Evaluation: 05:50 - Subjective Subjective: GI Progress note: Pt seen and examined at bedside. No acute events overnight. Pt complaining of some abdominal distension. One episode of nausea with small amount of non bloody vomiting. Tolerated clear liquid diet otherwise. 12 Point ROS performed and negative other than stated above. Objective - Vital Signs/Intake and Output Vital Signs (last 24 hours): Temp Pulse Resp BP Pulse Ox 98.7 F 79 14 92/56 L 93 L 12/21/17 04:00 12/21/17 04:04 12/21/17 04:04 12/21/17 04:04 12/21/17 04:04 Intake and Output: 12/20/17 12/21/17 18:59 06:59 Intake Total 110 160 Output Total 950 200 Balance -840 -40 - Medications Medications: Current Medications Ceftriaxone Sodium (Rocephin Iv 1 Gm Duplex) 50 mls @ 100 mls/hr IVPB DAILY [facility] Last Admin: 12/20/17 10:48 Dose: 100 mls/hr Lactulose (Enulose) 20 gm PO BID [facility] Last Admin: 12/20/17 18:39 Dose: 20 gm Morphine Sulfate (Morphine) 2 mg IV Q3 PRN PRN Reason: Pain, moderate (4-7) Last Admin: 12/20/17 21:40 Dose: 2 mg Pantoprazole Sodium (Protonix Inj) 40 mg IV ACB [facility] Last Admin: 12/21/17 06:30 Dose: 40 mg Propranolol HCl (Inderal) 5 mg PO TID [facility] Last Admin: 12/20/17 18:39 Dose: 5 mg Spironolactone (Aldactone) 25 mg PO BID [facility] Last Admin: 12/20/17 18:39 Dose: 25 mg Thiamine HCl (Vitamin B1 Tab) 100 mg PO DAILY [facility] Last Admin: 12/20/17 10:48 Dose: 100 mg Vitamin A (Vitamin A & D Oint Ud Foilpak) 1 ea TOP BID [facility] Last Admin: 12/20/17 18:39 Dose: 1 ea - Labs Labs: 12/20/17 06:40 12/20/17 06:29 PT 23.3 SECONDS (9.7-12.2) H 12/19/17 06:11 INR 2.0 12/19/17 06:11 APTT 30 SECONDS (21-34) 12/16/17 18:59 - Constitutional Appears: No Acute Distress - Head Exam Head Exam: ATRAUMATIC, NORMOCEPHALIC - Eye Exam Eye Exam: EOMI - ENT Exam ENT Exam: Mucous Membranes Moist - Respiratory Exam Respiratory Exam: Clear to Ausculation Bilateral. absent: Rales, Wheezes - Cardiovascular Exam Cardiovascular Exam: REGULAR RHYTHM, RRR, +S1, +S2 - GI/Abdominal Exam GI & Abdominal Exam: Distended, Soft, Normal Bowel Sounds. absent: Tenderness, Organomegaly Additional comments: mildly distended - Extremities Exam Extremities Exam: absent: Calf Tenderness - Neurological Exam Neurological Exam: Alert, Awake, Oriented x3 - Psychiatric Exam Psychiatric exam: Normal Mood - Skin Skin Exam: Dry, Intact, Warm Assessment and Plan - Assessment and Plan (Free Text) Assessment: 31yo male with PMHx significant for decompensated alcoholic cirrhosis with esophageal varices s/p banding in July 2016 who presents with altered mental status and severe normocytic anemia. s/p 6 units PRBCs. S/p EGD showing large esophageal varices w/ 5 bands placed successfully, portal hypertensive gastropathy and enlarged gastric folds. -Normocytic anemia -Decompensated alcholic cirrhosis complicated by hepatic encephalopathy, and esophageal varices -Coagulopathy of cirrhosis -Esophageal varices -Acute renal Failure -CLD as tolerated -Completed Albumin 25gm Q8H total of 9 bottles -Anemia - S/p 7 units total of PRBC with goal hgb ~ 7-8, - likely from known varices, portal hypertensive gastropathy, or bone marrow suppression from chronic ETOH abuse -Started on beta evelni therapy for prevention of variceal hemorrhage -Continue Aldactone 25mg BID -IR consulted for therapeutic paracentesis -Cont to monitor H/H -Continue Protonix 40mg IV ACB -Discontinued Octreotide drip yesterday -Ceftriaxone 1g IV daily for SBP ppx -Increased lactulose to 30mg TID, titrate to 2-3 bowel movements daily -Anti-emetics PRN -Pain control -Abdominal U/S showed hepatic cirrhosis, extensive ascites, splenomegaly, no evidence of PVT, hepatofugal flow consistent with severe portal HTN -Renal failure- FENA of 1.7 - intrinsic cause, abd US of kidneys with normal limits, Cr this morning pending -F/u renal consult recs -MELD- NA of 27 on 12/19/17 -Advised the patient regarding the importance of abstinence of any alcohol use. Recommend following up in the outpatient clinic upon discharge -Patient will need a follow up EGD in 2 months for esophageal varices -Cont to monitor patients clinical course Case and plan was reviewed and discussed in detail with Dr Pelaez. <Jake Pelaez - Last Filed: 12/21/17 10:20> Objective - Vital Signs/Intake and Output Vital Signs (last 24 hours): Temp Pulse Resp BP Pulse Ox 98.7 F 74 13 129/74 96 12/21/17 04:00 12/21/17 06:02 12/21/17 06:02 12/21/17 09:35 12/21/17 06:02 Intake and Output: 12/21/17 12/21/17 06:59 18:59 Intake Total 220 Output Total 800 Balance -580 - Medications Medications: Current Medications Furosemide (Lasix) 40 mg PO DAILY [facility] Last Admin: 12/21/17 09:35 Dose: 40 mg Ceftriaxone Sodium (Rocephin Iv 1 Gm Duplex) 50 mls @ 100 mls/hr IVPB DAILY [facility] Last Admin: 12/21/17 09:55 Dose: 100 mls/hr Lactulose (Enulose) 30 gm PO TID [facility] Last Admin: 12/21/17 09:34 Dose: 30 gm Morphine Sulfate (Morphine) 2 mg IV Q3 PRN PRN Reason: Pain, moderate (4-7) Last Admin: 12/20/17 21:40 Dose: 2 mg Pantoprazole Sodium (Protonix Inj) 40 mg IV ACB [facility] Last Admin: 12/21/17 06:30 Dose: 40 mg Propranolol HCl (Inderal) 5 mg PO TID [facility] Last Admin: 12/21/17 09:33 Dose: 5 mg Spironolactone (Aldactone) 100 mg PO DAILY [facility] Last Admin: 12/21/17 09:34 Dose: 100 mg Thiamine HCl (Vitamin B1 Tab) 100 mg PO DAILY [facility] Last Admin: 12/21/17 09:33 Dose: 100 mg Vitamin A (Vitamin A & D Oint Ud Foilpak) 1 ea TOP BID [facility] Last Admin: 12/21/17 09:35 Dose: 1 ea - Labs Labs: 12/21/17 08:22 12/21/17 08:22 PT 28.7 SECONDS (9.7-12.2) H D 12/21/17 08:22 INR 2.4 12/21/17 08:22 APTT 30 SECONDS (21-34) 12/16/17 18:59 Attending/Attestation - Attestation I have personally seen and examined this patient.: Yes I have fully participated in the care of the patient.: Yes I have reviewed all pertinent clinical information, including history, physical exam and plan: Yes Notes (Text): 12/21/17 10:15 I have seen and examined patient with GI fellow and medical device sales consultant. No acute events overnight, he is seen sitting at bedside appears comfortable. He complains of frequent belching but denies abdominal pain, nausea, vomiting, melena. Tolerating liquid diet without difficulty. ETOH cirrhosis, decompensated Anemia s/p EGD with variceal band ligation Ascites - Advance diet to low sodium as tolerated - Continue with PPI therapy - Anti-emetic therapy PRN - Creatinine normalized, would resume diuretic therapy and continue to monitor electrolytes - Continue with antibiotic therapy for 1 additional day to complete 5 day course - Patient would benefit from paracentesis following correction of thrombocytopenia - Continue with b-evelin therapy for variceal prophylaxis, monitor HR - Continue with lactulose therapy for HE prevention, titrate so patient has 2-3 bowel movements daily - H/H stable, continue to monitor - Elevated bilirubin noted, there is potential lag period in acute ETOH hepatitis, would continue to monitor. US imaging from a few days ago shows normal caliber CBD. - ETOH cessation counseling - Patient would benefit from repeat EGD within 2 months for variceal banding. No further planned GI intervention, will sign off case. Please reconsult as necessary, thank you.
[2017-12-21 08:43] LABS: ALB/GLOB RATIO 0.7 (1.0-2.1); ALBUMIN 3.4 g/dL (3.5-5.0); ALT/SGPT 39 U/L (21-72); AST/SGOT 50 U/L (17-59); BLOOD UREA NITROGEN 16 mg/dL (9-20); CALCIUM 9.8 mg/dl (8.6-10.4); GFR AFRICAN-AMERICAN > 60; GFR NON-AFRICAN AMERICAN > 60
[2017-12-21 08:48] LABS: BASO # 0.1 K/uL (0.0-0.2); BASO % 1.4 % (0.0-2.0); EOS # 0.3 K/uL (0.0-0.7); EOS % 6.9 % (0.0-4.0); HEMOGLOBIN 8.4 g/dL (12.0-18.0); LYMPH # 0.5 K/uL (1.0-4.3); LYMPH % 12.9 % (20.0-40.0); MEAN CELL VOLUME 88.4 fL (80.0-94.0); MEAN CORPUSCULAR HEMOGLOBIN 28.6 pg (27.0-31.0); MEAN CORPUSCULAR HGB CONC 32.3 g/dL (33.0-37.0); MONO # 0.7 K/uL (0.0-0.8); NEUT # 2.6 K/uL (1.8-7.0); NEUT % 62.8 % (50.0-75.0); NRBC % 0.8 % (0.0-2.0); RBC 2.95 Mil/uL (4.40-5.90); RED CELL DISTRIBUTION WIDTH 17.2 % (11.5-14.5); WHITE BLOOD COUNT 4.1 K/uL (4.8-10.8)
[2017-12-21 08:56] LABS: INR 2.4; PROTHROMBIN TIME 28.7 SECONDS (9.7-12.2)
[2017-12-21] MEDS: Propranolol 5 mg Tab PO SCH ×3 (09:33→18:51)
[2017-12-21] MEDS: Vitamins A & D Oint UD Foilpak TOP SCH ×2 (09:35→18:51)
[2017-12-21] MEDS: cefTRIAXone IV 1 gm in Dextros 50 ML IVPB SCH (09:55)
--- NOTE | 2017-12-21 13:23 | CP.PCM.PN ---
Subjective - Date & Time of Evaluation Date of Evaluation: 12/21/17 Time of Evaluation: 13:20 - Subjective Subjective: Hosptitalist Progress Note Patient was seen and examined at 1:20 PM 12/21/17 ICU Bed #16 with brother Asael [phone] present at bedside Please see Assessment and Plans below for details ROS: Had last bowel movement was evening of 12/17/17 and has not had a bowel movement since then Burning type mid abdominal pain extending up to his sternum has reduced NO chest pain NO palpitations NO n/v/d NO burning/pain with urination: yeh has been removed NO new changes in vision NO new changes in hearing NO paresthesias Bilateral Feet/Leg Edema since August 2016 and Right Arm Edema since 12/18/17: This has improved Also on Exam: HEENT: NCA, EOMI, PERRLA, (+) Scleral Icterus bilaterally, NO Pharyngeal erythema/exudate, NO cervical/supraclavicular/submandibular lymphadenopathy, NO thyromegaly Cardio: NS1 and NS2, NO M/R/G Resp: CTA B/L, NO R/R/W GI: NT, (+) Distention, BSx4, Liver and Spleen could not be adequately palpated , NO rebound/guarding, Tenderness to palpation in the LUQ Ext: Pulses are strong and equal, Capillary Refill is 2 seconds, (+) Edema 1+ from bilateral feet to the the knees. NON pitting edema of the Right Hand to entire arm Skin: has a slightly yellowish hue to it particularly upper body Neuro: CN II through XII are grossly intact Explained to patient and his brother that he has Alcohol related Liver failure and that he will need to follow up with [facility] through our [facility] Assessment/Plan 1) Altered Mental Status Secondary Hepatic Encephalopathy History of Liver Cirrhosis with Known History of Varices GI Bleed Severe Anemia likely secondary to GI bleed Coagulopathy * Admitted to the Critical Care Unit * GI (Dr. Pelaez) on the case * Abdominal US (09/08/16): increased echogenicity of the liver consistent with stated history of cirrhosis. Gallbladder wall thickening up to 6mm which may be related to liver pathology/cirrhosis versus less likely cholecystitis. * Abdominal US (12/18/17): ascites. Hepatic cirrhosis. Reversal of normal flow direction in portal vein. No evidence of portal venous thrombosis. Mildly thickening gallbladder wall, nonspecific. Marked splenomegaly. * Prior Endoscopy (2015): Grade III varcies in the lower third of esopahgus. One varix with visible vessel present. Three bands successfuly placed with incomplete eradication of varcies. 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 Portal Hypertensive gastropathy in gastric body. * Prior endoscopy (2015): grade II and large (>5mm) varcies with no bleeding were found in the middle third of the esophagus. Lower third the esophagus and the GE junction 30 to 40 cm from the incisors. Stigmata of recent bledding. Varices had red mary signs. Six bands were successfully placed with complete eradication resulting in deflation of varices. Bleeding had stopped at the end of the procedure. * CT Head (12/16/17): no definite acute intracranial abnormality. (further findings per report) * Upper Endoscopy (12/18/17): done by Dr. Pelaez and showed large esophageal varices and 5 were banded, portal hypertensive gastropathy, enlarged gastric folds * As of 12/20/17 he was given 7 units of PRBCs: HgB at 7.9 * Elevated INR: improved to 1.9 after Vitamin K 10 mg IV x 1 dose 12/16/17 and multiple units FFP * Was on Octreotide Drip but this was discontinued 12/20/17 * Protonix 40 mg IV ACB * Lactulose 20 gm PO BID: he has not had a bowel movement since evening 12/17/17 and still no bowel movement * Rocephin 1 gram IVPB daily (active since 12/17/17) for SBP prophylaxis through and then D/C to finish 5 day course * Propanolol 5 mg PO Q8H (started at lower dose of 5 mg instead of 10 considering low end of normal blood pressure) * Aldactone 100 mg PO 1x/day * Lasix 40 mg PO 1x/day * 12/21/17: Spoke with IR Dr. Ever Phillips and he will plan for therapeutic paracentesis 12/22/17. Pertineal Fluid Culture and Cytology already has been ordered. In anticipation of this 1 unit Platelets ordered to be transfused at 4 AM 12/22/17 and 1 unit of FFP to be transfused at 5 AM 12/22/17. 2) Acute Renal Failure * Nephrology (Dr. Keen) on consult for further recommendations * Unclear if renal failure is reflection of patient's suspected bleeding vs. hepatorenal syndrome given liver cirrhosi * Baseline Creatine: 0.6 (09/10/16) * Monitor urine output 3) B/l Leg Edema and Right Upper Arm Edema * Likely secondary to decompensated liver cirrhosis and elevated INR * Bilateral UE and LE Venous Doppler (12/19/17): negative for DVT 4) Hyperkalemia * Given in the ED, given Calcium gluconate 1amp, 1 amp D50, 10 units of Regular insulin to stabilize the potassium; Patient given additional Kayaexlate overnight. Potassium improved and now has normalized * EKG In the ED: ST depression V4 and V5 (not official read). 5). Hypomagnesemia * Replenished 6). Hypocalcemia * Calcium Carbonate 1,000 mg PO BID 7). Metabolic Acidosis * Improving 8). Cardiomegaly As seen on Chest X Ray F/U 2D Echocardiogram 9) Prophylactic Measure * Protonix 40 mg IV AB * Bilateral SCDs and NO anticoagulation considering Anemia and Elevated INR and Thrombocytopenia * Morphine 1 mg IV Q6H PRN Severe Pain * Low Sodium Soft Diet: explained to patient that he must get out of bed with assistance to sit in chair during his meals and then afterwards stay in chair for at least 30 to 45 minutes before getting back into bed. Artemio Mendoza D.O. Objective - Vital Signs/Intake and Output Vital Signs (last 24 hours): Temp Pulse Resp BP Pulse Ox 98.6 F 88 16 119/64 96 12/21/17 08:00 12/21/17 12:00 12/21/17 12:00 12/21/17 12:00 12/21/17 06:02 Intake and Output: 12/21/17 12/21/17 06:59 18:59 Intake Total 220 Output Total 800 Balance -580 - Medications Medications: Current Medications Furosemide (Lasix) 40 mg PO DAILY [facility] Last Admin: 12/21/17 09:35 Dose: 40 mg Ceftriaxone Sodium (Rocephin Iv 1 Gm Duplex) 50 mls @ 100 mls/hr IVPB DAILY [facility] Last Admin: 12/21/17 09:55 Dose: 100 mls/hr Lactulose (Enulose) 30 gm PO TID [facility] Last Admin: 12/21/17 09:34 Dose: 30 gm Morphine Sulfate (Morphine) 1 mg IV Q6 PRN PRN Reason: Pain, severe (8-10) Pantoprazole Sodium (Protonix Inj) 40 mg IV ACB [facility] Last Admin: 12/21/17 06:30 Dose: 40 mg Propranolol HCl (Inderal) 5 mg PO TID [facility] Last Admin: 12/21/17 09:33 Dose: 5 mg Spironolactone (Aldactone) 100 mg PO DAILY [facility] Last Admin: 12/21/17 09:34 Dose: 100 mg Thiamine HCl (Vitamin B1 Tab) 100 mg PO DAILY [facility] Last Admin: 12/21/17 09:33 Dose: 100 mg Vitamin A (Vitamin A & D Oint Ud Foilpak) 1 ea TOP BID [facility] Last Admin: 12/21/17 09:35 Dose: 1 ea - Labs Labs: 12/21/17 08:22 12/21/17 08:22 PT 28.7 SECONDS (9.7-12.2) H D 12/21/17 08:22 INR 2.4 12/21/17 08:22 APTT 30 SECONDS (21-34) 12/16/17 18:59
--- NOTE | 2017-12-21 22:09 | CP.PCM.PN ---
Subjective - Date & Time of Evaluation Date of Evaluation: 12/21/17 Time of Evaluation: 22:00 - Subjective Subjective: Patient tolerating diet; no sob; abd feeling softer; Objective - Vital Signs/Intake and Output Vital Signs (last 24 hours): Temp Pulse Resp BP Pulse Ox 98.2 F 92 H 15 115/65 96 12/21/17 20:00 12/21/17 20:00 12/21/17 20:00 12/21/17 20:00 12/21/17 06:02 Intake and Output: 12/21/17 12/22/17 18:59 06:59 Intake Total 800 Output Total 1100 Balance -300 - Medications Medications: Current Medications Furosemide (Lasix) 40 mg PO DAILY [facility] Last Admin: 12/21/17 09:35 Dose: 40 mg Ceftriaxone Sodium (Rocephin Iv 1 Gm Duplex) 50 mls @ 100 mls/hr IVPB DAILY [facility] Last Admin: 12/21/17 09:55 Dose: 100 mls/hr Lactulose (Enulose) 30 gm PO TID [facility] Last Admin: 12/21/17 18:00 Dose: Not Given Morphine Sulfate (Morphine) 1 mg IV Q6 PRN PRN Reason: Pain, severe (8-10) Pantoprazole Sodium (Protonix Inj) 40 mg IV ACB [facility] Last Admin: 12/21/17 06:30 Dose: 40 mg Propranolol HCl (Inderal) 5 mg PO TID [facility] Last Admin: 12/21/17 18:51 Dose: 5 mg Spironolactone (Aldactone) 100 mg PO DAILY [facility] Last Admin: 12/21/17 09:34 Dose: 100 mg Thiamine HCl (Vitamin B1 Tab) 100 mg PO DAILY [facility] Last Admin: 12/21/17 09:33 Dose: 100 mg Vitamin A (Vitamin A & D Oint Ud Foilpak) 1 ea TOP BID [facility] Last Admin: 12/21/17 18:51 Dose: 1 ea - Labs Labs: 12/21/17 08:22 12/21/17 08:22 PT 28.7 SECONDS (9.7-12.2) H D 12/21/17 08:22 INR 2.4 12/21/17 08:22 APTT 30 SECONDS (21-34) 12/16/17 18:59 - Constitutional Appears: Non-toxic - ENT Exam ENT Exam: Mucous Membranes Moist - Respiratory Exam Respiratory Exam: Clear to Ausculation Bilateral. absent: Respiratory Distress - Cardiovascular Exam Cardiovascular Exam: RRR, +S1, +S2 - GI/Abdominal Exam GI & Abdominal Exam: Distended, Soft. absent: Tenderness - Extremities Exam Additional comments: markedly edematous legs; - Neurological Exam Neurological Exam: Alert, Awake - Psychiatric Exam Psychiatric exam: Normal Affect, Normal Mood. absent: Agitated - Skin Skin Exam: Warm. absent: Cyanosis Assessment and Plan (1) RADHA (acute kidney injury) Assessment & Plan: Pre-renal etiology, resolving; for possible paracentesis tomorrow, need to give IV albumin thereafter is large volume removed; Status: Acute (2) Cardiomegaly Assessment & Plan: Underwent echo today, awaiting results; Status: Acute (3) Cirrhosis Assessment & Plan: Started on lasix 40 mg and aldactone 100 mg daily to help prevent ascites recurrence; monitor electrolytes closely; Status: Acute (4) Hematuria Assessment & Plan: Profound microscopic hematuria; possibly yeh trauma in the setting of coagulopathy/thrombocytopenia; yeh removed so will repeat UA to look for improvement; Status: Acute
--- NOTE | 2017-12-22 06:51 | CARD ---
APPROVED REPORT EXAM: Two-dimensional and M-mode echocardiogram with Doppler and color Doppler. Other Information Quality : GoodRhythm : INDICATION Murmur Cardiomegaly/ Hepatic Cirrhosis 2D DIMENSIONS IVSd1.0 (0.7-1.1cm)LVDd5.2 (3.9-5.9cm) PWd1.1 (0.7-1.1cm)LVDs3.0 (2.5-4.0cm) FS (%) 43.1 %LVEF (%)60.0 (>50%) M-Mode DIMENSIONS Left Atrium (MM)4.75 (2.5-4.0cm)Aortic Root3.20 (2.2-3.7cm) Aortic Cusp Exc.2.46 (1.5-2.0cm) Aortic Valve AI P 1/2 [id number] Mitral Valve MV E Azidxdhy866.3cm/sMV A Yferyzrj13.4cm/sE/A ratio1.7 TDI E/Lateral E'0.0E/Medial E'0.0 Tricuspid Valve TR Peak [id number]/sTR Peak Gr.[id number] LEFT VENTRICLE The left ventricle is normal size. There is normal left ventricular wall thickness. Left ventricle systolic function is normal. The Ejection Fraction is 55-60%. There is normal LV segmental wall motion. The left ventricular diastolic function is normal. RIGHT VENTRICLE The right ventricle is normal size. There is normal right ventricular wall thickness. The right ventricular systolic function is normal. ATRIA The left atrium size is normal. The right atrium size is normal. The interatrial septum is intact with no evidence for an atrial septal defect. AORTIC VALVE The aortic valve is normal in structure. No aortic regurgitation is present. There is no aortic valvular stenosis. There is no aortic valvular vegetation. MITRAL VALVE The mitral valve is normal in structure. There is no evidence of mitral valve prolapse. There is no mitral valve stenosis. Mitral regurgitation is mild. TRICUSPID VALVE The tricuspid valve is normal in structure. There is moderate tricuspid regurgitation. Right ventricular systolic pressure is estimated at 50-60 mmHg. There is moderate pulmonary hypertension. PULMONIC VALVE The pulmonic valve is not well visualized. There is mild pulmonic valvular regurgitation. GREAT VESSELS The aortic root is normal in size. PERICARDIAL EFFUSION There is no significant pericardial effusion. <Conclusion> Left ventricle systolic function is normal. The Ejection Fraction is 55-60%. There is no aortic valvular vegetation. Mitral regurgitation is mild. There is moderate tricuspid regurgitation. There is moderate pulmonary hypertension. There is mild pulmonic valvular regurgitation.
--- NOTE | 2017-12-22 08:05 | CP.PCM.PN ---
Subjective - Date & Time of Evaluation Date of Evaluation: 12/22/17 Time of Evaluation: 07:45 - Subjective Subjective: Hosptitalist Progress Note Patient was seen and examined at 7:45 AM 12/22/17 ICU Bed #16. Brother Asael was NOT present at bedside at the time of exam this morning Please see Assessment and Plans below for details ROS: Had 4 large watery brown nonbloody bowel movements after my exam last night Had episode of nausea/vomiting brown watery material after my exam 12/21/17 States he feels that there has been significant reduction in the swelling of belly NO longer experiencing burning abdominal pain to the sternum and is now able to sit up without experiencing abdominal pain NO chest pain NO palpitations NO burning/pain with urination NO new changes in vision NO new changes in hearing NO paresthesias Bilateral Feet/Leg Edema since August 2016 and Right Arm Edema since 12/18/17: This has improved Also on Exam: HEENT: NCA, EOMI, PERRLA, (+) Scleral Icterus bilaterally, NO Pharyngeal erythema/exudate, NO cervical/supraclavicular/submandibular lymphadenopathy, NO thyromegaly Cardio: NS1 and NS2, Early Systolic Ejection Murmur along left sternal border Resp: CTA B/L, NO R/R/W GI: NT, (+) Distention markedly reduced after the 4 large bowel movements 12/21/17 , BSx4, Liver and Spleen could not be adequately palpated, NO rebound/guarding, Tenderness to palpation in the LUQ Ext: Pulses are strong and equal, Capillary Refill is 2 seconds, (+) Edema 1+ from bilateral feet to the the knees with Right greater than Left is improved. NON pitting edema of the Right Hand to entire arm is improved Skin: has a slightly yellowish hue to it particularly upper body Neuro: CN II through XII are grossly intact Explained to patient and his brother that he has Alcohol related Liver failure and that he will need to follow up with [facility] through our [facility] Assessment/Plan 1) Altered Mental Status Secondary Hepatic Encephalopathy History of Liver Cirrhosis with Known History of Varices GI Bleed Severe Anemia likely secondary to GI bleed Coagulopathy * Admitted to the Critical Care Unit * GI (Dr. Pelaez) on the case * Abdominal US (09/08/16): increased echogenicity of the liver consistent with stated history of cirrhosis. Gallbladder wall thickening up to 6mm which may be related to liver pathology/cirrhosis versus less likely cholecystitis. * Abdominal US (12/18/17): ascites. Hepatic cirrhosis. Reversal of normal flow direction in portal vein. No evidence of portal venous thrombosis. Mildly thickening gallbladder wall, nonspecific. Marked splenomegaly. * Prior Endoscopy (2015): Grade III varcies in the lower third of esopahgus. One varix with visible vessel present. Three bands successfuly placed with incomplete eradication of varcies. 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 Portal Hypertensive gastropathy in gastric body. * Prior endoscopy (2015): grade II and large (>5mm) varcies with no bleeding were found in the middle third of the esophagus. Lower third the esophagus and the GE junction 30 to 40 cm from the incisors. Stigmata of recent bledding. Varices had red mary signs. Six bands were successfully placed with complete eradication resulting in deflation of varices. Bleeding had stopped at the end of the procedure. * CT Head (12/16/17): no definite acute intracranial abnormality. (further findings per report) * Upper Endoscopy (12/18/17): done by Dr. Pelaez and showed large esophageal varices and 5 were banded, portal hypertensive gastropathy, enlarged gastric folds * As of 12/20/17 he was given 7 units of PRBCs: HgB at 7.9 * Elevated INR: improved to 1.9 after Vitamin K 10 mg IV x 1 dose 12/16/17 and multiple units FFP * Was on Octreotide Drip but this was discontinued 12/20/17 * Protonix 40 mg IV ACB * Lactulose 20 gm PO BID: Had 4 large watery brown nonbloody bowel movements after my exam last night 12/21/17 * Rocephin 1 gram IVPB daily (active since 12/17/17) for SBP prophylaxis through and then D/C to finish 5 day course * Propanolol 5 mg PO Q8H (started at lower dose of 5 mg instead of 10 considering low end of normal blood pressure) * Aldactone 100 mg PO 1x/day * Lasix 40 mg PO 1x/day * 12/22/17: he is for therapeutic paracentesis later today after finishing 1 unit of Platelets and 1 unit of FFP. Abdominal distention is significanly improved after the 4 large bowel movements on 12/21/17 evening/night. Will see if Dr. Phillips thinks paracentesis is still waranted 2) Acute Renal Failure * Nephrology (Dr. Keen) on consult for further recommendations * Unclear if renal failure is reflection of patient's suspected bleeding vs. hepatorenal syndrome given liver cirrhosi * Baseline Creatine: 0.6 (09/10/16) * Monitor urine output * Improved 3) B/l Leg Edema and Right Upper Arm Edema * Likely secondary to decompensated liver cirrhosis and elevated INR * Bilateral UE and LE Venous Doppler (12/19/17): negative for DVT * Improved 4) Hyperkalemia * Given in the ED, given Calcium gluconate 1amp, 1 amp D50, 10 units of Regular insulin to stabilize the potassium; Patient given additional Kayaexlate overnight. Potassium improved and now has normalized * EKG In the ED: ST depression V4 and V5 (not official read). 5). Hypomagnesemia * Replenished 6). Hypocalcemia * Resolved and Calcium Carbonate 1,000 mg PO BID discontinued 7). Metabolic Acidosis * Resolved 8). Cardiomegaly As seen on Chest X Ray 2D Echocardiogram 12/21/17: LV systolic function is normal, EF is 55 to 60%, NO aortic vegetation, Mild MR, Mild Pulmonic Valve Regurgitation, Moderate Pulmonary HTN 9) Prophylactic Measure * Protonix 40 mg IV AB * Bilateral SCDs and NO anticoagulation considering Anemia and Elevated INR and Thrombocytopenia * Morphine 1 mg IV Q6H PRN Severe Pain * Low Sodium Soft Diet: explained to patient that he must get out of bed with assistance to sit in chair during his meals and then afterwards stay in chair for at least 30 to 45 minutes before getting back into bed. Artemio Mendoza D.O. Objective - Vital Signs/Intake and Output Vital Signs (last 24 hours): Temp Pulse Resp BP Pulse Ox 98.3 F 56 L 15 119/60 99 12/22/17 07:00 12/22/17 07:00 12/22/17 07:00 12/22/17 07:00 12/22/17 00:00 Intake and Output: 12/22/17 12/22/17 06:59 18:59 Intake Total 619 Output Total 1000 Balance -381 - Medications Medications: Current Medications Furosemide (Lasix) 40 mg PO DAILY [facility] Last Admin: 12/21/17 09:35 Dose: 40 mg Ceftriaxone Sodium 1 gm/ (Sodium Chloride) 100 mls @ 100 mls/hr IVPB DAILY [facility] Lactulose (Enulose) 30 gm PO TID [facility] Last Admin: 12/21/17 18:00 Dose: Not Given Morphine Sulfate (Morphine) 1 mg IV Q6 PRN PRN Reason: Pain, severe (8-10) Pantoprazole Sodium (Protonix Inj) 40 mg IV ACB [facility] Last Admin: 12/21/17 06:30 Dose: 40 mg Propranolol HCl (Inderal) 5 mg PO TID [facility] Last Admin: 12/21/17 18:51 Dose: 5 mg Spironolactone (Aldactone) 100 mg PO DAILY [facility] Last Admin: 12/21/17 09:34 Dose: 100 mg Thiamine HCl (Vitamin B1 Tab) 100 mg PO DAILY [facility] Last Admin: 12/21/17 09:33 Dose: 100 mg Vitamin A (Vitamin A & D Oint Ud Foilpak) 1 ea TOP BID [facility] Last Admin: 12/21/17 18:51 Dose: 1 ea - Labs Labs: 12/21/17 08:22 12/21/17 08:22 PT 28.7 SECONDS (9.7-12.2) H D 12/21/17 08:22 INR 2.4 12/21/17 08:22 APTT 30 SECONDS (21-34) 12/16/17 18:59
[2017-12-22] MEDS: Vitamins A & D Oint UD Foilpak TOP SCH ×2 (09:01→17:56)
[2017-12-22] MEDS: Propranolol 5 mg Tab PO SCH ×3 (10:00→18:00)
[2017-12-22 10:18] LABS: SQUAMOUS EPITHIAL < 1 /hpf (0-5); URINE BILIRUBIN NEGATIVE (NEGATIVE); URINE BLOOD 1+ (NEGATIVE); URINE CLARITY Clear (Clear); URINE COLOR Amber (YELLOW); URINE GLUCOSE (UA) NORMAL (Normal); URINE LEUKOCYTE ESTERASE NEG Leu/uL (Negative); URINE NITRATE NEGATIVE (NEGATIVE); URINE PROTEIN NEGATIVE (NEGATIVE)
[2017-12-22 10:37] LABS: BASO % 1.7 % (0.0-2.0); EOS # 0.2 K/uL (0.0-0.7); EOS % 7.4 % (0.0-4.0); HEMOGLOBIN 7.5 g/dL (12.0-18.0); LYMPH # 0.5 K/uL (1.0-4.3); LYMPH % 20.7 % (20.0-40.0); MEAN CELL VOLUME 89.2 fL (80.0-94.0); MEAN CORPUSCULAR HEMOGLOBIN 29.6 pg (27.0-31.0); MEAN CORPUSCULAR HGB CONC 33.2 g/dL (33.0-37.0); MONO # 0.4 K/uL (0.0-0.8); MONO % 18.7 % (0.0-10.0); NEUT # 1.2 K/uL (1.8-7.0); NEUT % 51.5 % (50.0-75.0); RBC 2.52 Mil/uL (4.40-5.90); RED CELL DISTRIBUTION WIDTH 17.5 % (11.5-14.5); WHITE BLOOD COUNT 2.3 K/uL (4.8-10.8)
[2017-12-22 10:42] LABS: INR 2.4; PROTHROMBIN TIME 27.8 SECONDS (9.7-12.2)
[2017-12-22 10:51] LABS: ALB/GLOB RATIO 0.7 (1.0-2.1); ALT/SGPT 40 U/L (21-72); AST/SGOT 50 U/L (17-59); BLOOD UREA NITROGEN 11 mg/dL (9-20); GFR AFRICAN-AMERICAN > 60; GFR NON-AFRICAN AMERICAN > 60; MAGNESIUM 1.1 mg/dL (1.6-2.3)
--- NOTE | 2017-12-22 19:51 | CP.PCM.PN ---
Subjective - Date & Time of Evaluation Date of Evaluation: 12/22/17 Time of Evaluation: 17:15 - Subjective Subjective: Patient tolerating diet well; abd distention improving; Objective - Vital Signs/Intake and Output Vital Signs (last 24 hours): Temp Pulse Resp BP Pulse Ox 98.6 F 56 L 15 119/60 99 12/22/17 15:00 12/22/17 07:00 12/22/17 07:00 12/22/17 07:00 12/22/17 00:00 - Medications Medications: Current Medications Furosemide (Lasix) 40 mg PO DAILY [facility] Last Admin: 12/22/17 10:00 Dose: Not Given Ceftriaxone Sodium 1 gm/ (Sodium Chloride) 100 mls @ 100 mls/hr IVPB DAILY [facility] Last Admin: 12/22/17 09:01 Dose: 100 mls/hr Lactulose (Enulose) 20 gm PO BID [facility] Last Admin: 12/22/17 17:56 Dose: 20 gm Morphine Sulfate (Morphine) 1 mg IV Q6 PRN PRN Reason: Pain, severe (8-10) Pantoprazole Sodium (Protonix Inj) 40 mg IV ACB [facility] Last Admin: 12/22/17 08:59 Dose: 40 mg Propranolol HCl (Inderal) 5 mg PO TID [facility] Last Admin: 12/22/17 14:00 Dose: Not Given Spironolactone (Aldactone) 100 mg PO DAILY [facility] Last Admin: 12/22/17 10:00 Dose: Not Given Thiamine HCl (Vitamin B1 Tab) 100 mg PO DAILY [facility] Last Admin: 12/22/17 10:00 Dose: Not Given Vitamin A (Vitamin A & D Oint Ud Foilpak) 1 ea TOP BID [facility] Last Admin: 12/22/17 17:56 Dose: 1 ea - Labs Labs: 12/22/17 10:26 12/22/17 10:26 PT 27.8 SECONDS (9.7-12.2) H 12/22/17 10:26 INR 2.4 12/22/17 10:26 APTT 33 SECONDS (21-34) 12/22/17 10:26 - Constitutional Appears: Non-toxic, No Acute Distress - Eye Exam Eye Exam: Normal appearance. absent: Scleral icterus - ENT Exam ENT Exam: Mucous Membranes Moist - Respiratory Exam Additional comments: basal rales present b/l; - Cardiovascular Exam Cardiovascular Exam: RRR, +S1, +S2 - GI/Abdominal Exam GI & Abdominal Exam: Distended, Soft. absent: Tenderness - Extremities Exam Additional comments: b/l leg edema, improved; - Psychiatric Exam Psychiatric exam: Normal Mood. absent: Agitated - Skin Skin Exam: Warm. absent: Cyanosis Assessment and Plan (1) RADHA (acute kidney injury) Assessment & Plan: Resolving, serum creat now down to baseline; avoid nephrotoxic agents (NSAIDS, phosphate enema); Status: Acute (2) Cardiomegaly Assessment & Plan: Echo showing high pulm artery pressure; otherwise, normal LV function (were concerned for ETOH cardiomyopathy); continue diuretics; Status: Chronic (3) Cirrhosis Assessment & Plan: With portal hypertension; not much ascites reported; Status: Acute (4) Hematuria Assessment & Plan: Improved after removal of yeh; can check another UA as outpatient to look for complete resolution; Status: Acute - Assessment and Plan (Free Text) Assessment: Thank you for this consult, we will be signing off; please call us back for any questions.
[2017-12-22] MEDS: Magnesium Sulfate 1 gm in D5W 1 GM/100 ML BAG IVPB SCH ×2 (20:53→21:47)
[2017-12-23 06:47] LABS: INR 2.5; PROTHROMBIN TIME 29.1 SECONDS (9.7-12.2)
[2017-12-23 07:08] LABS: HEMOGLOBIN 7.4 g/dL (12.0-18.0); MEAN CELL VOLUME 88.6 fL (80.0-94.0); MEAN CORPUSCULAR HEMOGLOBIN 29.3 pg (27.0-31.0); MEAN PLATELET VOLUME 9.4 fL (7.2-11.7); RBC 2.51 Mil/uL (4.40-5.90); RED CELL DISTRIBUTION WIDTH 17.4 % (11.5-14.5)
[2017-12-23 07:13] LABS: ALB/GLOB RATIO 0.7 (1.0-2.1); ALBUMIN 2.8 g/dL (3.5-5.0); ALT/SGPT 34 U/L (21-72); AST/SGOT 50 U/L (17-59); BLOOD UREA NITROGEN 9 mg/dL (9-20); CALCIUM 8.8 mg/dl (8.6-10.4); GFR AFRICAN-AMERICAN > 60; GFR NON-AFRICAN AMERICAN > 60; MAGNESIUM 1.5 mg/dL (1.6-2.3)
[2017-12-23] MEDS: Propranolol 5 mg Tab PO SCH ×3 (09:00→18:25)
[2017-12-23 11:36] LABS: BASO % 2.2 % (0.0-2.0); EOS % 7.2 % (0.0-4.0); LYMPH % 37.3 % (20.0-40.0); MONO % 16.9 % (0.0-10.0); NEUT % 36.4 % (50.0-75.0); NRBC % 0.7 % (0.0-2.0)
[2017-12-23 11:37] LABS: EOS # 0.1 K/uL (0.0-0.7); LYMPH # 0.7 K/uL (1.0-4.3); MONO # 0.3 K/uL (0.0-0.8); NEUT # 0.7 K/uL (1.8-7.0)
[2017-12-23] MEDS: Vitamins A & D Oint UD Foilpak TOP SCH ×2 (12:51→18:24)
--- NOTE | 2017-12-23 15:53 | CP.PCM.DIS ---
Provider - Provider Date of Admission: 12/16/17 18:39 Attending physician: Artemio Mendoza MD Primary care physician: None Consults: GI Dr. Pelaez/[facility] Nephrology Dr. Ren Time Spent in preparation of Discharge (in minutes): 40 Hospital Course - Lab Results Lab Results: Micro Results 12/16/17 21:00 Naris MRSA Culture (Admit) - Final MRSA NOT DETECTED Most Recent Lab Values WBC 2.0 K/uL (4.8-10.8) L* 12/23/17 06:31 RBC 2.51 Mil/uL (4.40-5.90) L 12/23/17 06:31 Hgb 7.4 g/dL (12.0-18.0) L 12/23/17 06:31 Hct 22.3 % (35.0-51.0) L 12/23/17 06:31 MCV 88.6 fL (80.0-94.0) 12/23/17 06:31 MCH 29.3 pg (27.0-31.0) 12/23/17 06:31 MCHC 33.0 g/dL (33.0-37.0) 12/23/17 06:31 RDW 17.4 % (11.5-14.5) H 12/23/17 06:31 Plt Count 32 K/uL (130-400) L 12/23/17 06:31 MPV 9.4 fL (7.2-11.7) 12/23/17 06:31 Neut % (Auto) 36.4 % (50.0-75.0) L 12/23/17 06:31 Lymph % (Auto) 37.3 % (20.0-40.0) 12/23/17 06:31 [place]ulk % (Auto) 16.9 % (0.0-10.0) H 12/23/17 06:31 Eos % (Auto) 7.2 % (0.0-4.0) H 12/23/17 06:31 Baso % (Auto) 2.2 % (0.0-2.0) H 12/23/17 06:31 Neut # (Auto) 0.7 K/uL (1.8-7.0) L 12/23/17 06:31 Lymph # (Auto) 0.7 K/uL (1.0-4.3) L 12/23/17 06:31 [place] # (Auto) 0.3 K/uL (0.0-0.8) 12/23/17 06:31 Eos # (Auto) 0.1 K/uL (0.0-0.7) 12/23/17 06:31 Baso # (Auto) 0.0 K/uL (0.0-0.2) 12/23/17 06:31 Neutrophils % (Manual) 79 % (50-75) H 12/17/17 07:18 Lymphocytes % (Manual) 7 % (20-40) L 12/17/17 07:18 Monocytes % (Manual) 12 % (0-10) H 12/17/17 07:18 Eosinophils % (Manual) 2 % (0-4) 12/17/17 07:18 Nucleated RBC % 1 % (0-0) H 12/17/17 07:18 Differential Comment 12/22/17 10:26 Toxic Granulation Present 12/17/17 07:18 Platelet Estimate Markedly decreased (NORMAL) L 12/17/17 07:18 Large Platelets Present 12/17/17 07:18 Polychromasia Slight 12/17/17 07:18 Hypochromasia (manual) Slight 12/17/17 07:18 Poikilocytosis (manual Slight 12/17/17 07:18 Anisocytosis (manual) Slight 12/17/17 07:18 Microcytosis (manual) Slight 12/17/17 07:18 Macrocytosis (manual) Slight 12/17/17 07:18 Spherocytes Slight 12/17/17 07:18 Target Cells Slight 12/17/17 07:18 Tear Drop Cells Slight 12/17/17 07:18 Ovalocytes Slight 12/17/17 07:18 Sheeba Cells Slight 12/17/17 07:18 Schistocytes Slight 12/17/17 07:18 Smear Path Review 12/16/17 17:42 PT 29.1 SECONDS (9.7-12.2) H 18 06:31 INR 2.5 12/23/17 06:31 APTT 41 SECONDS (21-34) H D 12/23/17 06:31 Puncture Site Rba 12/16/17 20:54 pCO2 21 mm/Hg (35-45) L 12/16/17 20:54 pO2 173 mm/Hg (80-100) H 12/16/17 20:54 HCO3 17.5 mmol/L (21-28) L 12/16/17 20:54 ABG pH 7.40 (7.35-7.45) 12/16/17 20:54 ABG Total CO2 13.6 mmol/L (22-28) L 12/16/17 20:54 ABG Base Excess -9.6 mmol/L (-2.0-3.0) L 12/16/17 20:54 ABG Hemoglobin < 3.0 g/dL (11.7-17.4) L 12/16/17 20:54 Servando Test Na 12/16/17 20:54 A-a O2 Difference 15.0 mm/Hg 12/16/17 20:54 Respiratory Index 0.1 12/16/17 20:54 Liter Flow 3.0 12/16/17 20:54 FiO2 30.0 % 12/16/17 20:54 Sodium 136 mmol/L (132-148) 12/23/17 06:31 Potassium 3.7 mmol/L (3.6-5.2) 12/23/17 06:31 Chloride 103 mmol/L (98-107) 12/23/17 06:31 Carbon Dioxide 24 mmol/L (22-30) 12/23/17 06:31 Anion Gap 13 (10-20) 12/23/17 06:31 BUN 9 mg/dL (9-20) 12/23/17 06:31 Creatinine 0.8 mg/dL (0.8-1.5) 12/23/17 06:31 Est GFR ( Amer) > 60 12/23/17 06:31 Est GFR (Non-Af Amer) > 60 12/23/17 06:31 POC Glucose (mg/dL) 85 mg/dL (65-110) 12/18/17 23:52 Random Glucose 79 mg/dL (75-110) 12/23/17 06:31 Lactic Acid 1.0 mmol/L (0.7-2.1) 12/18/17 06:43 Calcium 8.8 mg/dl (8.6-10.4) 12/23/17 06:31 Phosphorus 2.9 mg/dL (2.5-4.5) 12/22/17 10:26 Magnesium 1.5 mg/dL (1.6-2.3) L 12/23/17 06:31 Total Bilirubin 11.7 mg/dL (0.2-1.3) H 12/23/17 06:31 Direct Bilirubin 6.8 mg/dL (0.0-0.4) H 12/22/17 10:26 AST 50 U/L (17-59) 12/23/17 06:31 ALT 34 U/L (21-72) 12/23/17 06:31 Alkaline Phosphatase 38 U/L (38-126) 12/23/17 06:31 Ammonia 83 umol/L (9-33) H D 12/19/17 15:42 Total Protein 7.1 g/dL (6.3-8.3) 12/23/17 06:31 Albumin 2.8 g/dL (3.5-5.0) L 12/23/17 06:31 Globulin 4.3 gm/dL (2.2-3.9) H 12/23/17 06:31 Albumin/Globulin Ratio 0.7 (1.0-2.1) L 12/23/17 06:31 Alpha Fetoprotein 2.7 ng/mL (0.0-7.5) 12/19/17 06:11 Urine Color [place] (YELLOW) 12/22/17 10:03 Urine Clarity Clear (Clear) 12/22/17 10:03 Urine pH 5.0 (5.0-8.0) 12/22/17 10:03 Ur Specific [place] 1.012 (1.003-1.030) 12/22/17 10:03 Urine Protein Negative mg/dL (NEGATIVE) 12/22/17 10:03 Urine Glucose (UA) Normal mg/dL (Normal) 12/22/17 10:03 Urine Ketones Negative mg/dL (NEGATIVE) 12/22/17 10:03 Urine Blood 1+ (NEGATIVE) H 12/22/17 10:03 Urine Nitrate Negative (NEGATIVE) 12/22/17 10:03 Urine Bilirubin Negative (NEGATIVE) 12/22/17 10:03 Urine Urobilinogen 2.0 mg/dL (0.2-1.0) 12/22/17 10:03 Ur Leukocyte Esterase Neg [place]/uL (Negative) 12/22/17 10:03 Urine WBC (Auto) 2 /hpf (0-5) 12/22/17 10:03 Urine RBC (Auto) 6 /hpf (0-3) H 12/22/17 10:03 Ur Squamous Epith Cells < 1 /hpf (0-5) 12/22/17 10:03 Urine Osmolality 344 mosm/kg (300-1000) 12/18/17 19:00 Ur Random Creatinine 72.1 mg/dL 12/18/17 19:00 U Random Total Protein 23.0 mg/dL (0.0-12.0) H 12/17/17 16:56 Ur Random Sodium 53 mmol/L 12/18/17 19:00 Ur Random Urea Nitrogn 277 mg/dL 12/18/17 06:43 Urine Microalbumin 58.9 mg/L (0.0-16.6) H 12/17/17 16:44 Salicylates < 1.0 mg/dL 1 12/16/17 17:42 Urine Opiates Screen Negative (NEGATIVE) 12/16/17 17:42 Urine Methadone Screen Negative (NEGATIVE) 12/16/17 17:42 Acetaminophen < 10.0 ug/mL (10.0-30.0) L 12/16/17 17:42 Ur Barbiturates Screen Negative (NEGATIVE) 12/16/17 17:42 Ur Phencyclidine Scrn Negative (NEGATIVE) 12/16/17 17:42 Ur Amphetamines Screen Negative (NEGATIVE) 12/16/17 17:42 U Benzodiazepines Scrn Negative (NEGATIVE) 12/16/17 17:42 U Oth Cocaine Metabols Negative (NEGATIVE) 12/16/17 17:42 U Cannabinoids Screen Negative (NEGATIVE) 12/16/17 17:42 Alcohol, Quantitative < 10 mg/dl (0-10) 12/16/17 17:42 Complement C3 < 40.0 mg/dL (88.0-165.0) L 12/19/17 06:11 Complement C4 < 8.0 mg/dL (14.0-44.0) L 12/19/17 06:11 Blood Type A POSITIVE 12/16/17 18:11 Antibody Screen Negative 12/16/17 18:11 - Hospital Course Hospital Course: Discharge Progress Note Patient was seen and examined at 3:30 PM 12/23/17 ICU Bed #16. Brother Asael was present at bedside at the time of exam. Please see individual Assessment and Plans below for details of this patient's hospital admission ROS: Had 2 large watery brown nonbloody bowel movements earlier this morning NO more episodes of nausea/vomiting States he feels that there has been significant reduction in the swelling of belly NO longer experiencing burning abdominal pain to the sternum and is now able to sit up without experiencing abdominal pain NO chest pain NO palpitations NO SOB but there is occasional dry coughing NO burning/pain with urination NO new changes in vision NO new changes in hearing NO paresthesias Bilateral Feet/Leg Edema since August 2016 and Right Arm Edema since 12/18/17: This has has significantly improved Also on Exam: HEENT: NCA, EOMI, PERRLA, (+) Scleral Icterus bilaterally, NO Pharyngeal erythema/exudate, NO cervical/supraclavicular/submandibular lymphadenopathy, NO thyromegaly Cardio: NS1 and NS2, Early Systolic Ejection Murmur along left sternal border Resp: CTA B/L, NO R/R/W GI: NT, (+) Distention markedly reduced after the 4 large bowel movements and 2 more this morning, BSx4, Liver and Spleen could not be adequately palpated, NO rebound/guarding, Tenderness to palpation in the LUQ Ext: Pulses are strong and equal, Capillary Refill is 2 seconds, (+) Edema 1+ from bilateral feet to the the knees with Right greater than Left is improved. 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 Pelaez) on the case * Abdominal US (09/08/16): increased echogenicity of the liver consistent with stated history of cirrhosis. Gallbladder wall thickening up to 6mm which may be related to liver pathology/cirrhosis versus less likely cholecystitis. * Abdominal US (12/18/17): ascites. Hepatic cirrhosis. Reversal of normal flow direction in portal vein. No evidence of portal venous thrombosis. Mildly thickening gallbladder wall, nonspecific. Marked splenomegaly. * Prior Endoscopy (2015): Grade III varcies in the lower third of esopahgus. One varix with visible vessel present. Three bands successfuly placed with incomplete eradication of varcies. 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 Portal Hypertensive gastropathy in gastric body. * Prior endoscopy (2016): grade II and large (>5mm) varcies with no bleeding were found in the middle third of the esophagus. Lower third the esophagus and the GE junction 30 to 40 cm from the incisors. Stigmata of recent bledding. Varices had red mary signs. Six bands were successfully placed with complete eradication resulting in deflation of varices. Bleeding had stopped at the end of the procedure. * CT Head (12/16/17): no definite acute intracranial abnormality. (further findings per report) * Upper Endoscopy (12/18/17): done by Dr. Pelaez and showed large esophageal varices and 5 were banded, portal hypertensive gastropathy, enlarged gastric folds * As of 12/20/17 he was given 7 units of PRBCs: HgB at 7.9 * Elevated INR: improved to 1.9 after Vitamin K 10 mg IV x 1 dose 12/16/17 and multiple units FFP * Was on Octreotide Drip but this was discontinued 12/20/17 * Protonix 40 mg IV ACB * Lactulose 20 gm PO BID: Had 4 large watery brown nonbloody bowel movements 12/21 and 2 this morning * Rocephin 1 gram IVPB daily (active since 12/17/17) for SBP prophylaxis through and then D/C to finish 5 day course * Propanolol 5 mg PO Q8H (started at lower dose of 5 mg instead of 10 considering low end of normal blood pressure) * Aldactone 100 mg PO 1x/day * Lasix 40 mg PO 1x/day * 12/22/17: evaluated by IR Dr. Ever Phillips and as there was significant improvement in abdominal distenstion, Paracentesis was not performed * 2) Acute Renal Failure * Nephrology (Dr. Keen) * Unclear if renal failure is reflection of patient's suspected bleeding vs. hepatorenal syndrome given liver cirrhosis * Baseline Creatinine: 0.6 (09/10/16) * Monitor urine output * Improved 3) B/l Leg Edema and Right Upper Arm Edema * Likely secondary to decompensated liver cirrhosis and elevated INR * Bilateral UE and LE Venous Doppler (12/19/17): negative for DVT * Improved 4) Hyperkalemia * Given in the ED, given Calcium gluconate 1amp, 1 amp D50, 10 units of Regular insulin to stabilize the potassium; Patient given additional Kayaexlate overnight. Potassium improved and now has normalized * EKG In the ED: ST depression V4 and V5 (not official read). 5). Hypomagnesemia * Replenished 6). Hypocalcemia * Resolved and Calcium Carbonate 1,000 mg PO BID discontinued 7). Metabolic Acidosis * Resolved 8). Cardiomegaly As seen on Chest X Ray 2D Echocardiogram 12/21/17: LV systolic function is normal, EF is 55 to 60%, NO aortic vegetation, Mild MR, Mild Pulmonic Valve Regurgitation, Moderate Pulmonary HTN 9) Prophylactic Measure * Protonix 40 mg IV AB * Bilateral SCDs and NO anticoagulation considering Anemia and Elevated INR and Thrombocytopenia * Morphine 1 mg IV Q6H PRN Severe Pain * Low Sodium Soft Diet: explained to patient that he must get out of bed with assistance to sit in chair during his meals and then afterwards stay in chair for at least 30 to 45 minutes before getting back into bed. He will resume this diet at home Explained to patient and his brother Asael that patient was stable for discharge. The following instructions were explained to patient and his brother and a copy of these instructions with the above discharge summarywas provided to them: 1). You do not have a primary care physician. Therefore schedule an appointment with the [facility] located at [address] in [place], [place] by calling [phone]. This appointment should take place in the next 7 to 10 days. The physicians at this clinic will be your primary care physicians, help you to coordinate your health care, and provide you with future prescriptions that need to be refilled at your pharmacy. 2). 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 Please schedule an appointment with the [facility] at [facility]/ [facility] located at the [facility] on [address], [address] in [place], [place] by calling [phone]. This appointment should take place in the next 7 to 14 days. 3). Please have the following prescriptions filled at your pharmacy on the way home from the hospital and start taking as directed on 12/24/17: Furosemide 40 mg, 1 tablet by mouth 1x/day (breakfast), Dispense #30, NO refills Lactulose 20 gm, 1 tablet by mouth 2x/day (breakfast and dinner), Dispense #60, NO refills Propanolol 5 mg, 1 tablet by mouth 3x/day (breakfast, lunch, dinner), Dispense # 90, NO refills Spironolactone 100 mg, 1 tablet by mouth 1x/day (breakfast), Dispense #30, NO refills 4). Through the [facility] at [facility] you must arrange for a repeat Upper Endoscopy to take place February 2018. 5). You must follow a low salt diet. 6). You can not take any Non-steroidal Antiinflammatory Drugs such as Ibuprofen , Motrin, Aleve, Naprosyn as these will cause bleeding. 7). Please attend Alcoholic Anonymous meetings. You may perform a GOOGLE search for the nearest one to the town that you will be staying in with your brother. 8). Please bring this discharge summary with you to your appointments at the [facility] and at the [facility]. 9). Please take care and be well. Artemio Mendoza D.O. Discharge Exam - Head Exam Head Exam: ATRAUMATIC, NORMOCEPHALIC Discharge Plan - Follow Up Plan Condition: CRITICAL Disposition: HOME/ ROUTINE
[2017-12-23 18:02] VITALS: BP 103/53; PULSE 61; RESP 20; TEMP 98.5; O2SAT 100
[2017-12-23] MEDS ORDERED: Influenza Vaccine 60 mcg/0.5 mL SYR (4YR UP) IM ONE (18:41)
[2017-12-23] MEDS ORDERED: Pneumococcal 23-Valent Vaccine IM ONE (18:42)
--- NOTE | 2017-12-24 22:20 | PCM.PSYCH ---
Initial Psychiatric Evaluation - Initial Psychiatric Evaluation Type of Admission: Voluntary Legal Status: Capacity Chief Complaint (in patient's own words): I dont know what happened.' Past Psychiatric History - Past Psychiatric History Previous Treatment History: None Pertinent Medical Hx (Current Medical&Sleep Prob, Allergies): Allergies Allergy/AdvReac Type Severity Reaction Status Date / Time No Known Allergies Allergy Verified 09/07/16 10:21 Furosemide [Lasix] 40 mg PO DAILY #30 tab 12/23/17 Lactulose [Enulose] 20 gm PO BID #60 udc 12/23/17 Propranolol [Inderal] 5 mg PO TID #90 tab 12/23/17 Spironolactone [Aldactone] 100 mg PO DAILY #30 tab 12/23/17 Review of Systems - Review of Systems All systems: reviewed and no additional remarkable complaints except - Psychiatric Psychiatric: Anxiety, Irritability. absent: Suicidal Ideation Mental Status Examination - Personal Presentation Personal Presentation: Looks older than stated age - Affect Affect: Constricted, Depressed - Motor Activity Motor Activity: Calm - Reliability in Providing Information Reliability in Providing Information: Fair - Speech Speech: Organized - Mood Mood: Anxious - Formal Thought Process Formal Thought Process: No Impairment - Obsessions/Compulsions Obsessions: No Compulsions: No - Cognitive Functions Orientation: Person, Place, Situation, Time Sensorium: Alert Attention/Concentration: Attentive Abstract Thinking: [place] Estimate of Intelligence: Below average Judgement: Imparied, as evidence by: Poor judgement, Imparied, as evidence by: Lack of insight into illness - Risk Risk: Diminished functioning - Strength & Assets Inventory Strength & Assets Inventory: Family support DSM 5 DX - DSM 5 DSM 5 Diagnosis: Depressive disorder NOS Alcohol use severe - Recommended/Plan of Treatment Treatment Recommendations and Plan of Treatment: Depressive disorder NOS Alcohol use severe
--- NOTE | 2017-12-26 09:31 | US ---
HISTORY: CHECK FOR ASCITES COMPARISON: None. TECHNIQUE: Sonographic evaluation of the abdomen was performed for purposes of paracentesis. . FINDINGS: Ultrasound of the right upper abdomen, right lower abdomen, left lower abdomen, and left upper abdomen was performed. There is no significant ascites present. IMPRESSION: No significant ascites. Paracentesis was not performed.
== END 2017-12-24 00:16 | disposition home or self-care (01) | DRG 432 ==
LOC: C.ER 17:19 → C.9I 18:39
PROVIDERS: ADMIT Family Medicine; ATTEND Family Medicine
PROC: 06L38CZ Occlusion of Esophageal Vein with Extraluminal Device, Via Natural or Artificial Opening Endoscopic (ICD-10-PCS; principal; 2017-12-18 13:57)
PROC: 30233N1 Transfusion of Nonautologous Red Blood Cells into Peripheral Vein, Percutaneous Approach (ICD-10-PCS; 2017-12-19)
PROC: 30233R1 Transfusion of Nonautologous Platelets into Peripheral Vein, Percutaneous Approach (ICD-10-PCS; 2017-12-22)
PROC: 30233K1 Transfusion of Nonautologous Frozen Plasma into Peripheral Vein, Percutaneous Approach (ICD-10-PCS; 2017-12-22)
DX: K70.40 Alcoholic hepatic failure without coma (principal); K76.7 Hepatorenal syndrome; K70.31 Alcoholic cirrhosis of liver with ascites; N17.0 Acute kidney failure with tubular necrosis; I85.11 Secondary esophageal varices with bleeding; D61.818 Other pancytopenia; D68.4 Acquired coagulation factor deficiency; K76.6 Portal hypertension; E83.51 Hypocalcemia; E87.1 Hypo-osmolality and hyponatremia; E87.2 Acidosis; D50.0 Iron deficiency anemia secondary to blood loss (chronic); E87.5 Hyperkalemia; Y90.0 Blood alcohol level of less than 20 mg/100 ml; K29.20 Alcoholic gastritis without bleeding; F32.9 Major depressive disorder, single episode, unspecified; E86.9 Volume depletion, unspecified; Z51.5 Encounter for palliative care